=== PATIENT | male | born 1980 ===

== ENCOUNTER 2020-04-11 11:10 | Outpatient (REF) | payer OTHER, SELFPAY ==
[2020-04-11 14:27] LABS: Alanine Aminotransferase 29 U/L (0-40); Albumin Level 4.6 g/dL (3.5-5.0); Alkaline Phosphatase 82 U/L (39-117); Anion Gap 14 (12-20); Aspartate Amino Transferase 19 U/L (5-37); Bilirubin Total 0.4 mg/dL (0.0-1.0); Blood Urea Nitrogen 12 mg/dL (9-16); Calcium 8.8 mg/dL (8.4-10.2); Carbon Dioxide 25 mmol/L (22-29); Chloride 104 mmol/L (96-108); Estimated Glomerular Filt Rate > 60; Glucose Fasting 74 mg/dL (60-99); Potassium 4.2 mmol/l (3.3-5.1); Sodium 139 mmol/L (135-145); Total Protein 7.7 g/dL (6.5-8.0)
== END 2020-04-11 11:11 | disposition home or self-care (01) ==
LOC: HO.HMGCLDS 11:10
PROVIDERS: PCP Nurse Practitioner Family; Visit Provider Nurse Practitioner Family
DX: B36.0 Pityriasis versicolor (principal)
CPT/HCPCS: 80053

== ENCOUNTER 2021-08-26 13:26 | Outpatient (REF) | payer OTHER, BC, SELFPAY ==
--- NOTE | ~2021-08-26 | XR_ITS ---
EXAMINATION: XR SHOULDER, RIGHT CLINICAL INFORMATION: Sprain COMPARISON: None TECHNIQUE: 3 views of the right shoulder. FINDINGS: The bones and soft tissues are normal. No fracture. Glenohumeral and acromioclavicular alignment is anatomic with normal joint space. No abnormal soft tissue calcifications. XR/XR shoulder RT min 2V IMPRESSION: Normal right shoulder.
== END 2021-08-26 13:27 | disposition home or self-care (01) ==
LOC: HO.HMGCX 13:26
PROVIDERS: Visit Provider Internal Medicine
DX: S43.401A Unspecified sprain of right shoulder joint, initial encounter (principal); X58.XXXA Exposure to other specified factors, initial encounter; Y93.9 Activity, unspecified; Y92.9 Unspecified place or not applicable; Y99.9 Unspecified external cause status
CPT/HCPCS: 73030

== ENCOUNTER 2022-06-30 23:23 | Emergency (ER) | payer BC, SELFPAY ==
--- NOTE | ~2022-06-30 | CT_ITS ---
EXAMINATION: CT ABDOMEN AND PELVIS WITH CONTRAST CLINICAL INFORMATION: Lower abdominal pain, question diverticulitis COMPARISON: 12/04/2018 TECHNIQUE: Multidetector volumetric images were obtained from the superior aspect of the liver through the pubic symphysis following administration 85 mL of Omnipaque 350 intravenous contrast. Sagittal and coronal reformatted images were obtained on the technologist's workstation. Oral contrast: No This CT examination was performed using dose optimization techniques as appropriate, variously including the following: *Automated exposure control *Adjustment of mA and/or kV according to patient size (this includes techniques or standardized protocols for targeted exams where dose is matched to indication/reason for exam; i.e. extremities or head) *Use of iterative reconstruction technique DLP: 872 mGy-cm FINDINGS: LUNG BASES: Mild bibasilar atelectasis. LIVER, GALLBLADDER, AND BILIARY TREE: The liver is normal in size, shape, and attenuation. No focal hepatic lesion or biliary ductal dilatation is present. The gallbladder is unremarkable with no evidence of radiopaque gallstones, gallbladder wall thickening, or obvious pericholecystic inflammatory changes. PANCREAS: Unremarkable. SPLEEN: Unremarkable. ADRENAL GLANDS: Unremarkable. KIDNEYS AND URETERS: The kidneys are normal in size, shape, and attenuation. Left upper pole renal cyst measures up to approximately 5.2 cm; no follow-up recommended. No hydronephrosis, hydroureter, or calculi seen. No perinephric stranding. BLADDER: Unremarkable. GASTROINTESTINAL TRACT: The small and large bowel are unremarkable. The appendix is suspected to be collapsed. No free fluid or free air is seen. ABDOMINAL WALL: Small fat-containing umbilical hernia. LYMPH NODES: Normal. VASCULAR: Unremarkable. PELVIC VISCERA: Unremarkable. OSSEOUS STRUCTURES: Scattered degenerative changes noted in the spine. CT/CT abdomen pelvis w IV con IMPRESSION: No acute findings identified in the abdomen/pelvis.
[2022-06-30 23:26] VITALS: BP 164/74; PULSE 83; RESP 20; TEMP 36.8; O2SAT 94; BMI 34.3
[2022-07-01 00:15] LABS: Appearance Urine Clear; Basophils Absolute Auto 0.1 X10*3/uL (0.0-0.2); Basophils Percent Auto 0.8 % (0-2); Color Urine Yellow; Eosinophils Absolute Auto 0.2 X10*3/uL (0.0-0.4); Eosinophils Percent Auto 2.1 % (0-4); Glucose Urine UA Negative (Negative); Hematocrit 42.5 % (42.0-52.0); Hemoglobin 14.7 g/dl (14.0-18.0); Imm Gran Abs Auto 0.12 X10*3/uL (0.00-0.03); Imm Gran Pct Auto 1.1 % (0.0-0.4); Leukocyte Esterase Urine Negative (Negative); Lymphocytes Absolute Auto 2.5 X10*3/uL (1.2-4.9); Lymphocytes Percent Auto 22.4 % (20-40); MANUAL DIFF FLAG NO; Mean Corpuscular HGB Conc 34.6 g/dl (31.0-36.0); Mean Corpuscular Volume 89.7 fL (80.0-98.0); Mean Platelet Volume 9.8 fL (9.4-12.4); Monocytes Absolute Auto 0.9 X10*3/uL (0.1-1.2); Monocytes Percent Auto 8.1 % (2-11); Neutrophils Absolute Auto 7.3 x10*3/uL (2.0-8.3); Neutrophils Percent Auto 65.5 % (45-73); Nitrite Urine Negative (Negative); Platelet Count 259 X10*3/uL (160-400); Red Blood Count 4.74 X10*6/uL (4.60-5.80); Specific Gravity - Urine <= 1.005 (1.005-1.025); Urine Blood Negative (Negative); Urine Ketones Negative (Negative); Urine Protein Negative (Neg-Trace); White Blood Count 11.2 X10*3/uL (4.8-10.8)
[2022-07-01 00:33] LABS: Anion Gap 14 (12-20); Blood Urea Nitrogen 10 mg/dL (9-16); Calcium 9.3 mg/dL (8.4-10.2); Carbon Dioxide 26 mmol/L (22-29); Chloride 102 mmol/L (96-108); Creatinine Clr Calc Pharmacy 172.4; Estimated Glomerular Filt Rate > 60; Glucose Random 97 mg/dL (60-115); Potassium 4.1 mmol/L (3.3-5.1); Sodium 138 mmol/L (135-145)
--- NOTE | 2022-07-01 01:00 | ED.ABDPAIN ---
HPI - Abdominal Pain General Chief Complaint: Abdominal Pain Stated Complaint: Abd pain/Groin pain Time Seen by Provider: 07/01/22 00:48 Source: patient Mode of arrival: ambulatory Limitations: no limitations History of Present Illness HPI narrative: Patient with no significant past abdominal complaints been having diffuse lower abdominal pain for last 3 weeks for last few days getting worse mostly on the right side now is stable nausea no vomiting had some loose bowels with blood in that for last 2 days no fever or chills no history of diverticulitis patient is status post appendectomy Related Data Home Medications Medication Instructions Recorded Confirmed No Known Home Meds 08/26/21 08/26/21 Allergies Allergy/AdvReac Type Severity Reaction Status Date / Time steroids Allergy Unknown rage Unverified 12/25/21 12:40 out , aggitation STEROIDS Allergy Mild ENRAGED Uncoded 12/25/21 12:40 EASILY Review of Systems Review of Systems Yes all other systems are reviewed and are negative PMFSH Past Medical History Medical History History of gastroesophageal reflux (GERD) Left knee injury Seasonal allergies Surgical History History of appendectomy Family History Family History Father Smoker Mother Stroke Former smoker Maternal Grandfather No problems noted. Maternal Grandmother No problems noted. Paternal Grandfather Smoker Emphysema, unspecified Paternal Grandmother No problems noted. Brother No problems noted. Daughter No problems noted. Son No problems noted. Social History Social History Alcohol intake: never Advance Directives: No Advance Directives Information Provided: Yes Physical Exam ED Vital Signs: Vital Signs - 24 hr 06/30/22 23:26 07/01/22 04:19 Temperature 98.3 F 99.0 F Pulse Rate 83 82 Respiratory Rate 20 17 Blood Pressure 164/74 H 138/78 Pulse Oximetry 94 95 Oxygen Delivery Method Room Air Room Air BMI result Body Mass Index 34.3 Appearance: Alert. Oriented X3. No acute distress. Eyes: PERRLA, No Nystagmus ENT: Pharynx normal. Oral Mucosa moist Neck: Normal inspection. Neck supple. CVS: Normal heart rate and rhythm. Pulses normal. Respiratory: No respiratory distress. Equal air entry bilateral, no wheezing/rales/rhonchi Abdomen: Soft , deep tenderness right lower quadrant and left lower quadrant no rebound tenderness Bowel sounds are present, no mass palpable, no CVA tenderness Skin: Skin warm and dry. Normal skin color. Normal skin turgor. Extremities: No lower extremity edema. No calf tenderness Neuro: Oriented X 3. No motor deficit. Medical Decision Making Medical Decision Making [facility] Narrative: Patient has right lower lumbar and lower abdominal pain for last 3 weeks lab workup negative for any acute inflammation or infection CT scan also negative for kidney stone likely musculoskeletal pain discharge patient home on ibuprofen Lab Data [facility] Lab Attestation statement: I reviewed the patient's lab results. 07/01/22 00:07 07/01/22 00:07 Labs: Lab Results 07/01/22 07/01/22 07/01/22 Range/Units 00:07 00:07 00:07 WBC 11.2 H (4.8-10.8) X10*3/uL RBC 4.74 (4.60-5.80) X10*6/uL Hgb 14.7 (14.0-18.0) g/dl Hct 42.5 (42.0-52.0) % MCV 89.7 (80.0-98.0) fL MCH 31.0 (27.0-33.0) pg MCHC 34.6 (31.0-36.0) g/dl RDW 12.0 (11.0-16.0) % Plt Count 259 (160-400) X10*3/uL MPV 9.8 (9.4-12.4) fL Immature Gran % (Auto) 1.1 H (0.0-0.4) % Neut % (Auto) 65.5 (45-73) % Lymph % (Auto) 22.4 (20-40) % [place] % (Auto) 8.1 (2-11) % Eos % (Auto) 2.1 (0-4) % Baso % (Auto) 0.8 (0-2) % Lymph # (Auto) 2.5 (1.2-4.9) X10*3/uL [place] # (Auto) 0.9 (0.1-1.2) X10*3/uL Eos # (Auto) 0.2 (0.0-0.4) X10*3/uL Baso # (Auto) 0.1 (0.0-0.2) X10*3/uL Abs Immat Gran (auto) 0.12 H (0.00-0.03) X10*3/uL Absolute Neuts (auto) 7.3 (2.0-8.3) x10*3/uL Absolute Nucleated RBC 0.000 (0.0-0.012) X10*3/uL Nucleated RBC % (auto) 0.0 (0.0-0.2) /100WBC Sodium 138 (135-145) mmol/L Potassium 4.1 (3.3-5.1) mmol/L Chloride 102 (96-108) mmol/L Carbon Dioxide 26 (22-29) mmol/L Anion Gap 14 (12-20) BUN 10 (9-16) mg/dL Creatinine 0.81 (0.5-1.4) mg/dL Estim Creat Clear Calc 172.4 Estimated GFR > 60 Random Glucose 97 (60-115) mg/dL Calcium 9.3 (8.4-10.2) mg/dL Urine Color Yellow Urine Appearance Clear Urine pH 7.0 (5.0-9.0) Ur Specific [place] <= 1.005 (1.005-1.025) Urine Protein Negative (Neg-Trace) mg/dL Urine Glucose (UA) Negative (Negative) mg/dL Urine Ketones Negative (Negative) mg/dL Urine Blood Negative (Negative) Urine Nitrite Negative (Negative) Ur Leukocyte Esterase Negative (Negative) Medications Administered Discontinued Medications Generic Name Dose Route Start Last Admin Trade Name Freq PRN Reason Stop Dose Admin Sodium Chloride 1,000 mls @ 999 mls/hr 07/01/22 01:20 07/01/22 02:36 Ns IV 07/01/22 02:20 Infused .Q1H1M ONE Infusion Iohexol 85 ml 07/01/22 01:58 07/01/22 02:00 Iohexol 350 Mg/Ml 100 Ml Infus..Btl IV 07/01/22 01:59 85 ml ONCE ONE Administration Morphine Sulfate 4 mg 07/01/22 01:20 07/01/22 01:35 Morphine Sulfate 4 Mg/Ml Cartridge IVPUSH 07/01/22 01:21 4 mg ONCE ONE Administration Protocol Ondansetron HCl 4 mg 07/01/22 01:20 07/01/22 01:35 Ondansetron Hcl 4 Mg/2 Ml Vial IVPUSH 07/01/22 01:21 4 mg ONCE ONE Administration Discharge Plan Discharge Clinical Impression: Acute lumbar myofascial strain Patient Disposition: Home, Self-Care Instructions: Acute Low Back Pain (ED) Additional Instructions: Take ibuprofen more pain Apply Ice pack Your CT scan the abdomen is negative for any acute pathology Prescriptions: No Action No Known Home Meds Interventions: ED Discharge Assessment Last Done: 07/01/22 04:27 Discharge Date/Time: 07/01/22 04:28
--- OUTSIDE RECORDS SUMMARY | 2022-07-01 01:20 | XMS_ITS | Continuity of Care Document ---
:1980 Author Organization [facility] Care Team Providers Name Role Phone [facility] Unavailable Unavailable Problems Combined list of problems from Department of Defense and Veterans Affairs facilities. It does not include entries that were removed or entered in error. Problem Status Onset Problem Type Date of Comments Source Date Resolution Adjustment Active Condition [facility] disorder with [place] disturbance of [facility] conduct Backache (ICD-9-CM Active Condition [place] 724.5) Osteoarthritis * Active Condition [place] (ICD-9-CM 715.90) Allergies, Adverse Reactions, Alerts Combined list of allergies from Department of Defense and Veterans Affairs facilities. It does not include entries that were removed or entered in error. Substance Category Reaction Severity Reaction Status Date Comments S ource type Reported No Known Drug active 11/18/2007 [place] Allergies allergy Jack n (disorder) [place], [place] Immunizations Combined list of available immunizations from the Department of Defense and Veterans Affairs facilities. Immunization Series Date Administered Site Reaction Lot CVX Drug St atus Comments Source Given By Number Code Agricultural Adviser INFLUENZA, complet VA INJECTABLE, 2019 ed CN TRL QUADRIVALENT, WSTRN PRESERVATIVE M ASSCHU FREE SETS HCS FLU,3 YRS complet Site: S [place] (HISTORICAL) 2011 ed Left I ELD Deltoid DTAP, complet SPR[place] GF UNSPECIFIED 2011 ed IE LD FORMULATION Procedures Combined list of: 1) Procedures from Department of Veterans Affairs facilities going back up to the last 18 months, not all VA non-surgical procedures are included; 2) All procedures from the Department of Defense facilities. Procedure Procedure Type Code Date Perfomer Comments Sourc e DESTRUCTION (EG, LASER 11/29/2003 [facility] SURGERY, ELECTROSURGERY, CRYOSURGERY, CHEMOSURGERY, SURGICAL CURETTEMENT), PREMALIGNANT LESIONS (EG, ACTINIC KERATOSES); FIRST LESION DESTRUCTION (EG, LASER 11/22/2003 [facility] SURGERY, ELECTROSURGERY, CRYOSURGERY, CHEMOSURGERY, SURGICAL CURETTEMENT), PREMALIGNANT LESIONS (EG, ACTINIC KERATOSES); FIRST LESION PURE TONE AUDIOMETRY 11/20/2003 [facility] (THRESHOLD); AIR ONLY SKIN TEST; 02/23/2003 [facility] TUBERCULOSIS, INTRADERMAL INTRAVENOUS INFUSION 01/31/2003 [facility] FOR THERAPY/DIAGNOSIS, ADMINISTERED BY PHYSICIAN OR UNDER DIRECT SUPERVISION OF PHYSICIAN; UP TO ONE HOUR WEDGE EXCISION OF SKIN 10/02/2002 [facility] OF NAIL FOLD (EG, FOR INGROWN TOENAIL) CULTURE, BACTERIAL; ANY 08/28/2002 [facility] OTHER SOURCE EXCEPT URINE, BLOOD OR STOOL, AEROBIC, WITH ISOLATION AND PRESUMPTIVE IDENTIFICATION OF ISOLATES TYMPANOMETRY (IMPEDANCE 10/27/2001 [facility] TESTING) PURE TONE AUDIOMETRY 10/25/2001 [facility] (THRESHOLD); AIR ONLY PHYS/OTH QUALIFIED 05/06/2001 [facility] HEALTH PRACTICE PERFORMANCE MANAGER QUALIFIED,EDUCATION,TRA IN,LICENSURE/REGULATION (WHEN APPLICABLE) EDUC SER RENDERED TO PATS IN A GRP SETTING (EG,,OBESITY,OR DIABETIC INSTRUCT) WOUND CLEANSERS, ANY 01/17/2001 [facility] TYPE, ANY SIZE PHYS/OTH QUALIFIED 11/11/2000 [facility] HEALTH PRACTICE PERFORMANCE MANAGER QUALIFIED,EDUCATION,TRA IN,LICENSURE/REGULATION (WHEN APPLICABLE) EDUC SER RENDERED TO PATS IN A GRP SETTING (EG,,OBESITY,OR DIABETIC INSTRUCT) PURE TONE AUDIOMETRY 10/15/2000 [facility] (THRESHOLD); AIR ONLY PURE TONE AUDIOMETRY 10/14/2000 [facility] (THRESHOLD); AIR ONLY Social History Combined list of available smoking, tobacco, and other social history from Department of Defense andVeterans Affairs facilities. Social History Type Response Date Comment Source Tobacco smoking VA-TOBACCO FORMER 04/22/2020 [facility] status [facility] [place] [facility] History of tobacco VA-TOBACCO QUIT 5 TO 04/22/2020 V [facility] use < 15 YRS [place] [facility] History of tobacco LIFETIME NON-TOBACCO 03/28/2012 [place] use USER This section is an DoD empty social history section.
[2022-07-01] MEDS: 0.9 % Sodium Chloride 1,000 ML 999 ML IV (01:30)
[2022-07-01] MEDS: ondansetron HCL 4 MG/2 ML VIAL IVPUSH (01:35)
[2022-07-01] MEDS: Morphine Sulfate 4 MG/ML CARTRIDGE IVPUSH (01:35)
[2022-07-01] MEDS: iohexoL 350 MG/ML 100 ML INFUS..BTL 85 ML IV (02:00)
[2022-07-01 04:19] VITALS: BP 138/78; PULSE 82; RESP 17; TEMP 37.2; O2SAT 95
== END 2022-07-01 04:28 | disposition home or self-care (01) ==
PROVIDERS: Emergency Provider Internal Medicine; PCP Nurse Practitioner Family
DX: S39.012A Strain of muscle, fascia and tendon of lower back, initial encounter (principal); X58.XXXA Exposure to other specified factors, initial encounter; Y93.9 Activity, unspecified; Y92.9 Unspecified place or not applicable; Y99.9 Unspecified external cause status
CPT/HCPCS: 36415; 74177; 80048; 81003; 85025; 96361; 96374; 96375; 99283; 99284; J2270; J2405; Q9967

== ENCOUNTER 2022-12-15 08:41 | Outpatient (AMB) | payer OTHER, BC, SELFPAY ==
--- NOTE | 2022-12-15 08:43 | MHC.OFFWIV ---
Intake Vital Signs 12/15/22 08:46 BP 120/90 H Blood Pressure Location Rt brachial Position Sitting Pulse 75 Pulse Source Pulse Oximeter Pulse Oximetry (%) 95 Oxygen Delivery Method Room Air Intake Visit Reasons: EST/right side groin pain Intake Note: Patient here for umbilical hernia pain, he states the pain is unbearable. he was given meds last week and has run out. Patient Tobacco Use Status: Former Tobacco user Quit Date: 1 years ago Allergies steroids Allergy (Unknown, Unverified 12/15/22 09:26) rage out , aggitation STEROIDS Allergy (Mild, Uncoded 12/15/22 09:26) ENRAGED EASILY Medication List - Last Reconciled 12/15/22 by Mohsen Norman MD cyclobenzaprine 10 mg PO TID PRN 7 days ketoconazole 2% 1 appl topical BID oxycodone 5 mg PO Q8H PRN 4 days Do you need a note to return to daycare/school/sports/work: No HPI EST/right side groin pain HPI Details 41-year-old male presents to the office for a sick visit. Patient is reporting pain in the right lower back and radiating into the testicular area. The pain radiates into the testicular area at night. Symptoms have been present for the past 2 weeks. He was seen at [facility] where blood work and CT scan was done. The blood work results were unremarkable, the CT scan showed thickening in the rectal area. Patient has been on opiates and muscle relaxants with minimal relief. No difficulty urinating. He has had a change in the shape of his stool. He he has noticed they are long and elongated. [facility] Medical History History of gastroesophageal reflux (GERD) Left knee injury Seasonal allergies Surgical History History of appendectomy Family History Father Smoker Mother Stroke Former smoker Maternal Grandfather No problems noted. Maternal Grandmother No problems noted. Paternal Grandfather Smoker Emphysema, unspecified Paternal Grandmother No problems noted. Brother No problems noted. Daughter No problems noted. Son No problems noted. Social History Alcohol intake: never Patient Tobacco Use Status: Former Tobacco user Quit Date: 1 years ago e-Cigarette/Vaping Use: Never Used Second Hand Smoke Exposure: Yes service: Yes ([employer] ) Current occupational status: employed Current occupation: [employer] Current occupational exposures/hazards: No Cognitive needs: No Hearing needs: No Vision needs: No Physical Exam Vital Signs: Last Vital Signs Pulse 75 12/15/22 08:46 BP 120/90 H 12/15/22 08:46 Pulse Ox 95 12/15/22 08:46 Oxygen Delivery Method Room Air 12/15/22 08:46 Const General: cooperative and healthy appearing Nutritional Appearance: well nourished Orientation/consciousness: patient oriented x3 Limitations: no limitations HEENT Head: Yes normal to inspection Eyes General: appearance normal, both eyes and all related structures Neck Neck: Yes normal visual inspection Chest Chest palpation & inspection: normal palpation of entire chest wall Resp Effort & Inspection: normal respiratory effort Other: Rectal exam: No tenderness in the vault. Neuro General: patient oriented x3 Assessment & Plan Assessment & Plan (1) Low back pain: Code(s): M54.50 - Low back pain, unspecified Plan: Patient had a surgical appointment scheduled for his incidental umbilical hernia found on the CT scan. Very unlikely that the umbilical or the small inguinal hernia is causing current symptoms. More important is the rectal thickening on CT scan investigated further. A GI appointment has been requested. I spoke to Dr. Damon who will be seeing him. Coding Level of Care Code Est Pt Level 4 (60765) Diagnoses Low back pain M54.50
[2022-12-15 08:46] VITALS: BP 120/90; PULSE 75; O2SAT 95
== END 2022-12-15 10:30 | disposition home or self-care (01) ==
PROVIDERS: PCP Nurse Practitioner Family; Visit Provider Internal Medicine
DX: M54.50 Low back pain, unspecified (principal)
CPT/HCPCS: 99214

== ENCOUNTER 2022-12-17 12:52 | Day surgery (SDC) | payer BC, SELFPAY ==
[2022-12-17 13:59] VITALS: BP 146/86; PULSE 85; RESP 18; TEMP 36.7; O2SAT 93
[2022-12-17 14:01] VITALS: BMI 35.6
[2022-12-17] MEDS: Lactated Ringers 1,000 ML 50 ML IVCONT (14:22)
--- NOTE | 2022-12-17 14:29 | MHC.SHP ---
Pre-Procedural Eval Section A Date of Service: 12/17/22 Section B Chief Complaint: Other specified diseases of anus and rectum Details of Present Illness: patient has been having about 4 weeks of pain in right scrotum, and in lower back as well as rectal area. He had a CT scan at [facility] with thickened rectum. Has seen small amounts of blood. 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 Relevant Family History (Specify if Yes): No Relevant Social History: Other (specify) (THC use ) Present Medications: see Short Stay Collaborative assessment Medical History: Significant History (History of gastroesophageal reflux (GERD) Left knee injury Seasonal allergies) History of Previous Operations: Relevant previous surgery/procedure and date(s) (appendectomy) Allergies: Allergies Allergy/AdvReac Type Severity Reaction Status Date / Time steroids Allergy Unknown rage Unverified 12/15/22 09:26 out , aggitation Review of Systems Sugical H&P ROS: Negative: Constitution, Cardiovascular, Respiratory, Neurological, Psychiatric, Hem-Onc, Allergic/Immunologic, Gastrointestinal, Genitourinary, Musculoskeletal, Integumentary, Endocrine and Eyes/Ears/Nose/Throat Exam Surgical H&P Exam: Normal: HEENT, Normal: Heart, Normal: Lungs, Normal: Extremities, Normal: Abdomen, Normal: Skin and Normal: Neurological Exam Comment: no herniae seen, tender lower back Plan I have reviewed the history and physical and performed a pertinent physical examination on my patient. No changes have occurred unless specified. colonoscopy for further assessment Time Spent With Patient Time: Total time managing care of this patient today ____ minutes.
--- NOTE | 2022-12-17 14:59 | P.CONAN_ITS ---
[facility] Active Problems Active Problems: All Active Problems (Updated 12/15/22 @ 09:30 by Mohsen Norman MD) Low back pain (Acute) Umbilical hernia (Acute) Physical exam (Acute) Rectal bleed (Acute) Sprain of right shoulder (Acute) Tinea versicolor (Acute) Past Medical History Medical History History of gastroesophageal reflux (GERD) Left knee injury Seasonal allergies Family History Family History Father Smoker Mother Stroke Former smoker Maternal Grandfather No problems noted. Maternal Grandmother No problems noted. Paternal Grandfather Smoker Emphysema, unspecified Paternal Grandmother No problems noted. Brother No problems noted. Daughter No problems noted. Son No problems noted. Family history of problems with anesthesia: No Surgical History Surgical History History of appendectomy History of Problems with Anesthesia: No Social History Social History Alcohol intake: never Patient Tobacco Use Status: Former Tobacco user Quit Date: 13 years e-Cigarette/Vaping Use: Never Used Second Hand Smoke Exposure: Yes Use of substances other than those prescribed or required for medical reasons: Yes Substance Use Type Other:: daily - last 0912/17/22 Are you DNR?: No Advance Directives: No Advance Directives Information Provided: Yes service: Yes ([employer] ) Current occupational status: employed Current occupation: [employer] Current occupational exposures/hazards: No Cognitive needs: No Hearing needs: No Vision needs: No Meds Allergies Allergy/AdvReac Type Severity Reaction Status Date / Time steroids Allergy Unknown rage Unverified 12/15/22 09:26 out , aggitation Active Medications: Current Medications Lactated Ringer's (Lr) 1,000 mls @ 50 mls/hr IVCONT .Q20H APRIL Last Admin: 12/17/22 14:22 Dose: 50 mls/hr Exam Exam Date and Time: December 17, 2022 1459 Height,Weight and Vital Signs: Height 6 ft 3 in Weight 129.274 kg Last Vital Signs Temp 98.0 F 12/17/22 13:59 Pulse 85 12/17/22 13:59 Resp 18 12/17/22 13:59 BP 146/86 H 12/17/22 13:59 Pulse Ox 93 12/17/22 13:59 O2 Del Method Room Air 12/17/22 13:59 Airway Mallampati Class: II TM Dist: >3cm Neck ROM: Full Assessment and Plan Assessment Anesthesia Assessment: Anesthesia Plan Discussed and Chart Reviewed Final Anesthetic Review Family History of Problems with Anesthesia: No History of Problems with Anesthesia: No NPO: Yes ASA Class: II Final Preanesthetic Review: No Changes in Pt Med Stat, Meds/Allgs Chart Reviewed, Consent Obtained/Reviewed and Anes Risks/Benef Reviewed Patient Risk: Low Procedure Risk: Low Anesthetic Plan Anesthetic Plan: MAC: Disposition: Standard PACU
--- NOTE | 2022-12-17 15:41 | W.PM.OPN ---
Operative Note Operative Note Date of Service: 12/17/22 Narrative: Operative Information Procedure Description: Colonoscopy Indication: rectal thickening on CT Anesthesia: MAC COLONOSCOPY Instrument: Olympus variable stiffness ADULT scope 190L Colonoscopy Monitoring: Vital signs and clinical assessment, continuous EKG monitoring, Pulse oximetry, Carbon Dioxide monitoring and blood pressure monitoring were done throughout the procedure. Colon withdrawal time was 9 minutes. Procedure: The patient was placed in the left lateral decubitis position and pre-procedure medications were administered. After a digital rectal examination of the ano-rectum, the video colonoscope was inserted into the rectum and advanced through the colon to the cecum/TI. The colonoscope was slowly withdrawn in a retrograde panoramic fashion and the colon mucosa was carefully examined including a retroflexed view of the rectum. Findings and interventions are described below. Procedure Difficulty: easy Findings: Terminal Ileum-normal Cecum:normal Ascending Colon: normal Transverse Colon -normal Descending Colon:normal Sigmoid Colon: normal Rectum: Retroflexion with medium sized internal hemorrhoids, grade I with inflammation noted, some mild erythema in rectum, bx taken Anorectum - normal Colon preparation: [place] Bowel Preparation Scale Right colon; 3 Transverse colon: 3 Left colon; 3 (0 = Unprepared colon segment with mucosa not seen due to solid stool that cannot be cleared. 1 = Portion of mucosa of the colon segment seen, but other areas of the colon segment not well seen due to staining, residual stool and/or opaque liquid. 2 = Minor amount of residual staining, small fragments of stool and/or opaque liquid, but mucosa of colon segment seen well. 3 = Entire mucosa of colon segment seen well with no residual staining, small fragments of stool or opaque liquid) Impression and Post Procedure Diagnosis: internal hemorrhoids, inflammed Plan: High fiber diet leaflet Avoid straining at stool, epsom salts and sitz bath, anusol supps or cream Consider spinal imaging to r/o nerve impingement causing his sharp pains into groin and scrotum. Avoid heavy lifting. Above findings were reviewed with the patient and relevant handouts were provided if indicated.
[2022-12-17 15:45] VITALS: BP 115/70; PULSE 92; RESP 15; TEMP 37.6; O2SAT 95
[2022-12-17 16:00] VITALS: BP 136/82; PULSE 78; RESP 16; O2SAT 95
[2022-12-17 16:11] VITALS: BP 143/76; PULSE 79; RESP 16; TEMP 37; O2SAT 96
== END 2022-12-17 16:15 | disposition home or self-care (01) ==
PROVIDERS: PCP Nurse Practitioner Family; Visit Provider Internal Medicine Gastroenterology
PROC: 0DJD8ZZ Inspection of Lower Intestinal Tract, Via Natural or Artificial Opening Endoscopic (ICD-10-PCS; CPT 45378; principal; 2022-12-17 15:50)
DX: K62.5 Hemorrhage of anus and rectum (principal); K62.89 Other specified diseases of anus and rectum; K64.8 Other hemorrhoids; K64.0 First degree hemorrhoids; M54.50 Low back pain, unspecified; N50.82 Scrotal pain; K21.9 Gastro-esophageal reflux disease without esophagitis; J30.1 Allergic rhinitis due to pollen; Z87.891 Personal history of nicotine dependence; F12.90 Cannabis use, unspecified, uncomplicated; Z88.8 Allergy status to other drugs, medicaments and biological substances
CPT/HCPCS: 45380; 88305

== ENCOUNTER → 2022-12-17 12:52 | Outpatient (BNV) | payer BC, SELFPAY | PROVIDERS: PCP Nurse Practitioner Family; Visit Provider Internal Medicine Gastroenterology | DX: K62.4 Stenosis of anus and rectum (principal); K64.0 First degree hemorrhoids | CPT/HCPCS: 45380 ==

== ENCOUNTER 2022-12-21 10:15 | Outpatient (AMB) | payer OTHER, SELFPAY ==
[2022-12-21 10:24] VITALS: BP 136/64; PULSE 67; BMI 33.7
--- NOTE | 2022-12-21 10:24 | MHC.OFFVIS ---
Intake Vital Signs 12/21/22 10:24 Height 6 ft 3 in Weight 270 lb BMI 33.7 BP 136/64 Blood Pressure Location Rt brachial Position Sitting Pulse 67 Intake Visit Reasons: Umbilical hernia Intake Note: Patient here for Umbilical and inguinal hernia. Patient c/o Rt lower back pain. Patient noticed hernias after picking up heavy trash can at work. Recent CT scan @ [facility]. Report will be scanned in chart. 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 Symptomatic umbilical hernia 2. Symptomatic right groin hernia Patient does significant heavy lifting straining at his place of employment and has had symptoms sporadically for the last several months time particularly with the right groin pain. This happened status post heavy lifting at his place of employment. He has had extensive workup including a recent CT scan was demonstrates umbilical hernia and and question of a fat containing inguinal hernia Chart was reviewed patient evaluated The patient recent colonoscopy which was essentially within normal limits [facility] Medical History History of gastroesophageal reflux (GERD) Left knee injury Seasonal allergies Surgical History History of appendectomy Family History Father Smoker Mother Stroke Former smoker Maternal Grandfather No problems noted. Maternal Grandmother No problems noted. Paternal Grandfather Smoker Emphysema, unspecified Paternal Grandmother No problems noted. Brother No problems noted. Daughter No problems noted. Son No problems noted. Social History (Updated 12/21/22 @ 10:29 by MIRACLE Sherman) Alcohol intake: never Patient Tobacco Use Status: Former Tobacco user Quit Date: 13 years e-Cigarette/Vaping Use: Never Used Second Hand Smoke Exposure: Yes Substance Use Type: Marijuana service: Yes ([employer] ) Current occupational status: employed Current occupation: [employer] Current occupational exposures/hazards: No Cognitive needs: No Hearing needs: No Vision needs: No Physical Exam Vital Signs: Last Vital Signs Pulse 67 12/21/22 10:24 BP 136/64 12/21/22 10:24 BMI result Body Mass Index 33.7 Chest Other: Chest breath sounds bilaterally, HS 1 in 2 GI Other: Abdomen ; corpulent, soft, benign. Patient was examined both supine and standing with Valsalva. Small right inguinal hernia demonstrated. Very symptomatic on palpation. Genitalia within normal limits., Approximate 2 cm irreducible umbilical hernia. Question of a very small left inguinal hernia, asymptomatic. Assessment & Plan Assessment & Plan (1) Umbilical hernia: Code(s): K42.9 - Umbilical hernia without obstruction or gangrene (2) Inguinal hernia of right side without obstruction or gangrene: Code(s): K40.90 - Unilateral inguinal hernia, without obstruction or gangrene, not specified as recurrent Plan I discussed with the patient therapeutic options include continued observation or repair of the hernias. He wished to have repair of the symptomatic hernias, umbilical and right groin. Risks, benefits, and alternatives of hernia repair were reviewed the patient included but not limited to bleeding, infection, recurrence, numbness, pain, scarring, bowel injury or leak, seroma, and persistence of symptoms . Patient wishes to proceed. All questions were answered. Arrangements were made for this. Coding Level of Care Code New Pt Level 5 (32502) Diagnoses Umbilical hernia K42.9 Inguinal hernia of right side without obstruction or gangrene K40.90
== END 2022-12-21 10:40 | disposition home or self-care (01) ==
PROVIDERS: PCP Nurse Practitioner Family; Referring Provider Nurse Practitioner Family; Visit Provider Surgery
DX: K42.9 Umbilical hernia without obstruction or gangrene (principal); K40.90 Unilateral inguinal hernia, without obstruction or gangrene, not specified as recurrent
CPT/HCPCS: 99205

== ENCOUNTER → 2022-12-21 10:15 | Outpatient (BNVA) | payer OTHER, BC, SELFPAY | PROVIDERS: PCP Nurse Practitioner Family; Referring Provider Nurse Practitioner Family; Visit Provider Surgery | DX: K42.9 Umbilical hernia without obstruction or gangrene (principal); K40.90 Unilateral inguinal hernia, without obstruction or gangrene, not specified as recurrent; Z79.899 Other long term (current) drug therapy | CPT/HCPCS: 99202 ==

== ENCOUNTER 2023-01-04 07:27 | Outpatient (AMB) | payer OTHER, SELFPAY ==
--- NOTE | 2023-01-04 07:23 | A.OFFPC_ITS ---
Intake Visit Reasons: FMLA paper work Allergies steroids Allergy (Unknown, Unverified 12/21/22 10:27) rage out , aggitation Tobacco use date assessed: 10/07/22 HPI FMLA paper work HPI Details Pt has an upcoming surgery on 01/07 for a right inguinal and umbilical hernia repair with mesh. Pt's surgeon will be filling out paperwork for FMLA. Denies fever, chills, and dizziness. [facility] Medical History History of gastroesophageal reflux (GERD) Left knee injury Seasonal allergies Surgical History History of appendectomy Family History Father Smoker Mother Stroke Former smoker Maternal Grandfather No problems noted. Maternal Grandmother No problems noted. Paternal Grandfather Smoker Emphysema, unspecified Paternal Grandmother No problems noted. Brother No problems noted. Daughter No problems noted. Son No problems noted. Social History (Updated 12/21/22 @ 10:29 by MIRACLE Sherman) Alcohol intake: never Patient Tobacco Use Status: Former Tobacco user Quit Date: 13 years e-Cigarette/Vaping Use: Never Used Second Hand Smoke Exposure: Yes Substance Use Type: Marijuana service: Yes ([employer] ) Current occupational status: employed Current occupation: [employer] Current occupational exposures/hazards: No Cognitive needs: No Hearing needs: No Vision needs: No Questionnaire Thrive Questionnaire Date Thrive assessed: 10/07/22 SERVANDO-7 AMB Questionnaire SERVANDO-7 Date SERVANDO - 7 assessed: 10/07/22 Source: Developed by Drs. Holden Davis, Ani Tom, Monroe Delgado and colleagues, with an educational raj from [employer]. Review of Systems Const Reports as per HPI Physical exam (Primary Care) Tobacco/Smoking Status: Tobacco use Status Tobacco use date assessed 10/07/22 01/04/23 07:24 Patient Tobacco Use Status Former Tobacco user 01/04/23 07:24 e-Cigarette/Vaping Use Never Used 01/04/23 07:24 Thrive Assessment: Date of Thrive Assessment Date Thrive assessed 10/07/22 01/04/23 07:24 Const General: cooperative Orientation/consciousness: patient oriented x3 Neuro General: patient oriented x3 Psych Appearance: grossly normal Mental Status: mental status grossly normal Speech and movement: Clear speech present Affect: normal affect Attitude: cooperative Thought process: Normal thought process present Thought content: Normal thought content present Insight: Good insight present (Psych) Judgement: Good judgement present (Psych) Telehealth Telehealth Location of provider rendering services: practice address Location of patient: address on file Patient Identification confirmed using: Name, : Yes Telehealth method: video Patient verbally consented to treatment: Yes Patient verbally consented to billing insurance company: Yes Patient informed of any privacy concerns related to visit: Yes Minutes spent on Phone/Video with Pt.: 10 Assessment and Plan Assessment & Plan (1) Umbilical hernia: Code(s): K42.9 - Umbilical hernia without obstruction or gangrene (2) Inguinal hernia of right side without obstruction or gangrene: Code(s): K40.90 - Unilateral inguinal hernia, without obstruction or gangrene, not specified as recurrent Plan The patient agreed to the use of a medical facilities section director for this encounter. Scribed for KANDY Paredes-DEJUAN by Jia Olivier medical facilities section director, on 01/04/2023 at 07:25 EST. Coding Level of Care Code Tele Est Pt Level 3 (12930) Diagnoses Umbilical hernia K42.9 Inguinal hernia of right side without obstruction or gangrene K40.90
== END 2023-01-04 14:53 | disposition home or self-care (01) ==
PROVIDERS: PCP Nurse Practitioner Family; Visit Provider Nurse Practitioner Family
DX: K42.9 Umbilical hernia without obstruction or gangrene (principal); K40.90 Unilateral inguinal hernia, without obstruction or gangrene, not specified as recurrent
CPT/HCPCS: 99213

== ENCOUNTER 2023-01-07 10:43 | Day surgery (SDC) | payer OTHER, SELFPAY ==
[2023-01-04 15:31] VITALS: BMI 34.4
--- NOTE | 2023-01-06 09:05 | MHC.SHP ---
Pre-Procedural Eval Section A Date of Service: 01/06/23 The patient is an INPATIENT: No Changes since office visit: No Cold of Flu in the past 2 weeks, No New Medical Problems, No Changes in Medication and No Patient answered all questions The History & Physical has been completed within 30 days and I have reviewed it.: Yes Section B Chief Complaint: Umbilica hernia without obstruction or gangrene Allergies: Allergies Allergy/AdvReac Type Severity Reaction Status Date / Time steroids AdvReac Intermediate Irritable Verified 01/04/23 15:35 Plan I have reviewed the history and physical and performed a pertinent physical examination on my patient. No changes have occurred unless specified. Time Spent With Patient Time: Total time managing care of this patient today ____ minutes.
[2023-01-07 12:01] VITALS: BP 105/48; PULSE 76; RESP 18; TEMP 36.4; O2SAT 97
[2023-01-07] MEDS: Lactated Ringers 1,000 ML 50 ML IVCONT (12:27)
--- NOTE | 2023-01-07 13:00 | P.CONAN_ITS ---
HPI - Anesthesia Eval Consult details Narrative: 42 yo male for umbilial and inguinal hernia repair [facility] Active Problems Active Problems: All Active Problems (Updated 01/04/23 @ 15:34 by Nydia Posey RN) Tinea versicolor (Acute) Sprain of right shoulder (Acute) Rectal bleed (Acute) Physical exam (Acute) Umbilical hernia (Acute) Low back pain (Acute) Inguinal hernia of right side without obstruction or gangrene (Acute) Past Medical History Medical History History of gastroesophageal reflux (GERD) Left knee injury Seasonal allergies Family History Family History Father Smoker Mother Stroke Former smoker Maternal Grandfather No problems noted. Maternal Grandmother No problems noted. Paternal Grandfather Smoker Emphysema, unspecified Paternal Grandmother No problems noted. Brother No problems noted. Daughter No problems noted. Son No problems noted. Family history of problems with anesthesia: No Surgical History Surgical History (Updated 01/04/23 @ 15:34 by Nydia Posey RN) History of appendectomy History of esophagogastroduodenoscopy (EGD) Hx of colonoscopy History of Problems with Anesthesia: No Social History Social History (Updated 01/04/23 @ 14:34 by Nydia Posey RN) Are you a primary health care specialist to a significant other at home: No Do you presently have visiting nurse or other home services: No Alcohol intake: never Patient Tobacco Use Status: Former Tobacco user Quit Date: 2009 Tobacco use type: Cigarette e-Cigarette/Vaping Use: Never Used Second Hand Smoke Exposure: Yes Use of substances other than those prescribed or required for medical reasons: Yes Substance Use Type: Marijuana Substance Use Frequency: Daily Have you been hit, kicked, punched, or otherwise hurt by someone within the past year? If so, by whom?: No Are you DNR?: No Advance Directives: No Advance Directives Information Provided: Yes Advance Directives on File: No Recently lost weight without trying: No Nutrition Risks: No Nutritional Risk Poor oral hygiene: No service: Yes ([employer]) Current occupational status: employed Current occupation: [employer] Current occupational exposures/hazards: No Cognitive needs: No Hearing needs: No Vision needs: No Meds Allergies Allergy/AdvReac Type Severity Reaction Status Date / Time steroids AdvReac Intermediate Irritable Verified 01/04/23 15:35 Active Medications: Current Medications Lactated Ringer's (Lr) 1,000 mls @ 50 mls/hr IVCONT .Q20H APRIL Last Admin: 01/07/23 12:27 Dose: 50 mls/hr Exam Exam Date and Time: January 07, 2023 1300 Height,Weight and Vital Signs: Height 6 ft 3 in Weight 124.738 kg Last Vital Signs Temp 97.6 F 01/07/23 12:01 Pulse 76 01/07/23 12:01 Resp 18 01/07/23 12:01 BP 105/48 L 01/07/23 12:01 Pulse Ox 97 01/07/23 12:01 O2 Del Method Room Air 01/07/23 12:01 Airway Mallampati Class: II TM Dist: >3cm Neck ROM: Full Loose/Missing/Broken Teeth: No Heart: rr Lungs: cta Assessment and Plan Assessment Anesthesia Assessment: Anesthesia Plan Discussed and Chart Reviewed Final Anesthetic Review Family History of Problems with Anesthesia: No History of Problems with Anesthesia: No NPO: Yes ASA Class: II Final Preanesthetic Review: No Changes in Pt Med Stat, Meds/Allgs Chart Reviewed, Consent Obtained/Reviewed and Anes Risks/Benef Reviewed Patient Risk: Low Procedure Risk: Low Anesthetic Plan Anesthetic Plan: GA Disposition: Standard PACU
--- NOTE | 2023-01-07 14:14 | P.OP_ITS ---
Operative Note Operative Note Date of Service: 01/07/23 Narrative: Preoperative diagnosis: [] 1. Right inguinal hernia 2. Incarcerated umbilical hernia Postop diagnosis: [] Same Procedure [] 1. Open repair right inguinal hernia with Bard mesh 2. Repair incarcerated umbilical hernia with Bard mesh Surgeon: [] Max Technical Translator: [] ana Wilkinson Type of Anesthesia: [] General Indication for surgery: [] 1. Large direct right inguinal hernia. No indirect hernia demonstrated. Two. Incarcerated umbilical hernia with omental contents. Defect approximately 2 cm. Findings: [] Patient brought to the operating room, placed on operative table in supine position, after an adequate level of general anesthesia was induced, the right groin and abdomen were prepped and draped in usual sterile fashion. Commencing with inguinal hernia, a small right para- inguinal incision was made and carried down through skin, subcutaneous tissue, and Radha's fascia. External oblique fibers were opened in their direction with care to isolate and preserve the ilioinguinal nerve throughout the procedure. Spermatic cord was identified and retracted from the field. Exploration of the cord demonstrated no indirect hernia. A large direct hernia was identified and reduced. A Bard plug was placed in this defect, and it was sutured inferiorly to the inguinal ligament, and superiorly to the transversalis fascia using interrupted 0 Ethibond suture. At completion of the procedure, mesh covered the entire inguinal floor and was in good position with no tension. Internal ring admitted 1 finger tip at completion. Wound was irrigated, secured hemostasis, and closed in the following manner; external oblique fascia was closed using running 2-0 Vicryl suture. Radha's fascia was reapproximated using up to 3-0 Vicryl sutures. Interrupted inverted deep dermal 3-0 Vicryl sutures followed by running subcuticular 4-0 Vicryl sutures were placed. Steri-Strips and sterile dressings were applied. Next the umbilical hernia was approached using an infraumbilical curvilinear incision and carried down through skin, subcutaneous tissue, where hernia sac was identified and dissected off the posterior aspect of the umbilicus. Sac was dissected down the fascia and opened. Incarcerated omental contents were amputated by placing a clamp at the base, amputated using Bovie, and tying off the returning part of omentum. Hernia sac was also amputated using Bovie. Fascia margin was circumferentially cleared and a Bard mesh placed in this defect. Superficial layer of the mesh was circumferentially sutured to the surrounding fascia using interrupted 0 Ethibond suture. At completion of procedure, mesh was in good position with no tension or gaps. Wound was irrigated, secured hemostasis, closed in the following manner; posterior aspect of the umbilicus was tacked to the wound floor using up to 3-0 Vicryl sutures. Skin was closed using interrupted inverted dermal 3-0 Vicryl sutures followed by Steri-Strips and sterile dressings. Preemptive analgesia with 0.5% Marcaine/1% lidocaine was performed at each incision site and also at the completion of the procedure. Sponge, needle, and instrument counts were reported to be correct. Patient tolerated the procedure well and emerged anesthesia stable condition. Ipsilateral testicle was intra scrotal at completion of the procedure. EBL minimal
[2023-01-07 14:25] VITALS: BP 145/89; PULSE 72; RESP 16; TEMP 36.1; O2SAT 96
[2023-01-07 14:30] VITALS: BP 151/82; PULSE 64; RESP 20; O2SAT 95
[2023-01-07] MEDS: oxyCODONE HCl Immed Release 5 MG TABLET 10 MG PO (14:33)
[2023-01-07 14:35] VITALS: BP 146/79; PULSE 71; RESP 20; O2SAT 96
[2023-01-07 14:40] VITALS: BP 141/79; PULSE 66; RESP 20; O2SAT 96
[2023-01-07 14:55] VITALS: BP 126/81; PULSE 70; RESP 20; TEMP 36.4; O2SAT 99
== END 2023-01-07 15:07 | disposition home or self-care (01) ==
PROVIDERS: PCP Nurse Practitioner Family; Visit Provider Surgery
PROC: (CPT 49505; principal; 2023-01-07 13:10)
PROC: (CPT 49505; 2023-01-07 13:10)
DX: K40.90 Unilateral inguinal hernia, without obstruction or gangrene, not specified as recurrent (principal); K42.0 Umbilical hernia with obstruction, without gangrene; J30.2 Other seasonal allergic rhinitis; Z87.891 Personal history of nicotine dependence; Z88.8 Allergy status to other drugs, medicaments and biological substances
CPT/HCPCS: 49505; 49592; 88304; C1781; J1885; J2405; J2795; J3010

== ENCOUNTER → 2023-01-07 10:43 | Outpatient (BNV) | payer OTHER, SELFPAY | PROVIDERS: PCP Nurse Practitioner Family; Visit Provider Surgery | DX: K40.90 Unilateral inguinal hernia, without obstruction or gangrene, not specified as recurrent (principal); K42.0 Umbilical hernia with obstruction, without gangrene; X50.0XXA Overexertion from strenuous movement or load, initial encounter; Y99.0 Civilian activity done for income or pay | CPT/HCPCS: 49505; 49591 ==

== ENCOUNTER 2023-01-18 08:57 | Outpatient (AMB) | payer OTHER, SELFPAY ==
[2023-01-18 09:04] VITALS: BP 127/64; PULSE 67
--- NOTE | 2023-01-18 09:04 | A.OFFVIS_ITS ---
Intake Vital Signs 01/18/23 09:04 Weight 270 lb BP 127/64 Blood Pressure Location Rt brachial Position Sitting Pulse 67 Intake Visit Reasons: S/P umbilical & RIH repair Intake Note: Patient here s/p umbilical and RIH repair. Reports incisions healing well. Denies bleeding, itch. C/o back pain. Finished rx pain meds last night. Post Closer Required: No Accompanied by: Self / Same As Patient Allergies steroids Adverse Reaction (Intermediate, Verified 01/18/23 09:06) Irritable HPI HPI Comments History of Present Illness Details Patient presents for follow-up status post umbilical and right inguinal hernia repairs. He is doing well aside from mild incisional discomfort ; he is tolerating a diet , having normal bowel habits and increasing his activity level. Incidental complaint is of right flank discomfort which patient has had in the past. My suggestion is a follow-up with a urologist regarding this. [facility] Medical History History of gastroesophageal reflux (GERD) Left knee injury Seasonal allergies Surgical History History of appendectomy History of esophagogastroduodenoscopy (EGD) Hx of colonoscopy Family History Father Smoker Mother Stroke Former smoker Maternal Grandfather No problems noted. Maternal Grandmother No problems noted. Paternal Grandfather Smoker Emphysema, unspecified Paternal Grandmother No problems noted. Brother No problems noted. Daughter No problems noted. Son No problems noted. Social History Are you a primary primary health care nurse to a significant other at home: No Do you presently have visiting nurse or other home services: No Alcohol intake: never Patient Tobacco Use Status: Former Tobacco user Quit Date: 2009 Tobacco use type: Cigarette e-Cigarette/Vaping Use: Never Used Second Hand Smoke Exposure: Yes Substance Use Type: Marijuana service: Yes ([employer]) Current occupational status: employed Current occupation: [employer] Current occupational exposures/hazards: No Cognitive needs: No Hearing needs: No Vision needs: No Physical Exam Vital Signs: Last Vital Signs Pulse 67 01/18/23 09:04 BP 127/64 01/18/23 09:04 GI Other: Abdomen soft. Both wounds clean dry and intact healing uneventfully. Assessment & Plan Assessment & Plan (1) Umbilical hernia: Code(s): K42.9 - Umbilical hernia without obstruction or gangrene (2) Inguinal hernia of right side without obstruction or gangrene: Code(s): K40.90 - Unilateral inguinal hernia, without obstruction or gangrene, not specified as recurrent Plan Patient has been given local instructions, a note for workcommencing in 3 weeks with 2 weeks light duty , otherwise follow-up p.r.n. Coding Level of Care Code Global (17723) Diagnoses Umbilical hernia K42.9 Inguinal hernia of right side without obstruction or gangrene K40.90
== END 2023-01-18 09:22 | disposition home or self-care (01) ==
PROVIDERS: PCP Nurse Practitioner Family; Visit Provider Surgery
DX: K42.9 Umbilical hernia without obstruction or gangrene (principal); K40.90 Unilateral inguinal hernia, without obstruction or gangrene, not specified as recurrent
CPT/HCPCS: 99024

== ENCOUNTER → 2023-01-18 08:57 | Outpatient (BNVA) | payer OTHER, BC, SELFPAY | PROVIDERS: PCP Nurse Practitioner Family; Visit Provider Surgery ==

== ENCOUNTER 2023-03-08 09:10 | Outpatient (AMB) | payer OTHER, SELFPAY ==
--- NOTE | 2023-03-08 09:11 | A.OFFVIS_ITS ---
Intake Vital Signs 03/08/23 09:17 Weight 278 lb BP 129/73 Blood Pressure Location Rt brachial Position Sitting Pulse 85 Intake Visit Reasons: testicular pain, Hx umbilical &RIH hernia repair Intake Note: S/p umbilical and rih hernia repair in January. Patient c/o swelling on rt groin. Reports numbing sensation on rt testicle X1wk. Noticed after pulling on heavy cart at work. Also notices pulling sensation after standing from sitting position on bathtub. 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 He developed right groin pain following this that has persisted for the week. He did not know subcuticular bulge. He has no other GI issues or complaints. He is tolerating a diet. He is having normal bowel habits. He is ambulating without difficulty. [facility] Medical History Seasonal allergies Left knee injury History of gastroesophageal reflux (GERD) Surgical History Hx of colonoscopy History of esophagogastroduodenoscopy (EGD) History of appendectomy Family History Father Smoker Mother Stroke Former smoker Maternal Grandfather No problems noted. Maternal Grandmother No problems noted. Paternal Grandfather Smoker Emphysema, unspecified Paternal Grandmother No problems noted. Brother No problems noted. Daughter No problems noted. Son No problems noted. Social History Are you a primary caregivers non medical to a significant other at home: No Do you presently have visiting nurse or other home services: No Alcohol intake: never Patient Tobacco Use Status: Former Tobacco user Quit Date: 2009 Tobacco use type: Cigarette e-Cigarette/Vaping Use: Never Used Second Hand Smoke Exposure: Yes Substance Use Type: Marijuana service: Yes ([employer]) Current occupational status: employed Current occupation: [employer] Current occupational exposures/hazards: No Cognitive needs: No Hearing needs: No Vision needs: No Physical Exam Vital Signs: Last Vital Signs Pulse 85 03/08/23 09:17 BP 129/73 03/08/23 09:17 GI Other: Patient is examined supine. Left groin negative. Right groin incision clean dry and intact. No evidence of any infection. Deep scarring from surgery but no obvious hernia demonstrated. Abdomen soft. No evidence of recurrence umbilical hernia . Assessment & Plan Assessment & Plan (1) Strain of right groin: Code(s): S76.211A - Strain of adductor muscle, fascia and tendon of right thigh, initial encounter Plan Patient's place of employment does not have light duty. We will given 2 weeks off, local wound instructions including ice or heat to the area, Motrin, and he will follow-up p.r.n. if pain worsens or persists, he should contact us for immediate follow-up. Coding Level of Care Code Est Pt Level 3 (93797) Diagnoses Strain of right groin S76.211A
[2023-03-08 09:17] VITALS: BP 129/73; PULSE 85
== END 2023-03-08 09:28 | disposition home or self-care (01) ==
PROVIDERS: PCP Nurse Practitioner Family; Visit Provider Surgery
DX: S76.211A Strain of adductor muscle, fascia and tendon of right thigh, initial encounter (principal)
CPT/HCPCS: 99024

== ENCOUNTER → 2023-03-08 09:10 | Outpatient (BNVA) | payer OTHER, SELFPAY | PROVIDERS: PCP Nurse Practitioner Family; Visit Provider Surgery | DX: S76.211A Strain of adductor muscle, fascia and tendon of right thigh, initial encounter (principal) | CPT/HCPCS: 99212 ==

== ENCOUNTER 2023-03-09 14:31 | Outpatient (AMB) | payer OTHER, BC, SELFPAY ==
--- NOTE | 2023-03-09 15:02 | A.OFFVIS_ITS ---
Intake Intake Visit Reasons: Cyst of kidney Intake Note: New Patient presents for initial visit for kidney cyst Urology Medications: none Blood Thinner: none Fisheries Director Required: No Accompanied by: Self / Same As Patient Allergies steroids Adverse Reaction (Intermediate, Verified 03/09/23 23:03) Irritable Medication List - Last Reconciled 03/09/23 by PRAKASH Baker No Known Home Meds HPI HPI Comments History of Present Illness Details Johnnie is a very pleasant 42-year-old male patient of Dr. Davison. He presents to the office today as a new patient for renal cyst. In discussion with the patient today he reports noting ongoing issues over the last 3-4 months with back pain and lower abdominal pain at which time a CT was ordered for further assessment evaluation. 5.7 cm left upper pole renal cyst with no solid masses, stones, or hydronephrosis noted within the kidneys and ureters was noted on CT of the abdomen and pelvis at which time he was referred here for further assessment and evaluation. Patient discusses having had recent umbilical and inguinal hernia repair on the right side with general surgeon here at [facility] [place], [place]. He states most if not all of his pain had since subsided status post surgical procedure up until approximately a week ago when he return to work and started experiencing right-sided groin pain that started after he missed a step. She reports having followed up with General surgery yesterday regarding this issue. He reports right-sided back pain he had been experiencing has since resolved. Discussed at length potential causes for renal cyst. Discussed surveillance monitoring. Patient otherwise denies any bothersome urinary issues or concerns at this time. He denies urinary urgency, urinary frequency, incontinence, nocturia, hematuria, dysuria, foul smelling urine, changes to urinary stream, flank pain, fever, and or chills. He is happy with his current voiding parameters. In office urinalysis results reviewed with the patient today. [facility] Medical History Seasonal allergies Left knee injury History of gastroesophageal reflux (GERD) Surgical History (Updated 03/09/23 @ 23:09 by PRAKASH Baker) H/O inguinal hernia repair H/O umbilical hernia repair Hx of colonoscopy History of esophagogastroduodenoscopy (EGD) History of appendectomy Family History Father Smoker Mother Stroke Former smoker Maternal Grandfather No problems noted. Maternal Grandmother No problems noted. Paternal Grandfather Smoker Emphysema, unspecified Paternal Grandmother No problems noted. Brother No problems noted. Daughter No problems noted. Son No problems noted. Social History Are you a primary medical care evaluation specialist to a significant other at home: No Do you presently have visiting nurse or other home services: No Alcohol intake: never Patient Tobacco Use Status: Former Tobacco user Quit Date: 2009 Tobacco use type: Cigarette e-Cigarette/Vaping Use: Never Used Second Hand Smoke Exposure: Yes Substance Use Type: Marijuana service: Yes ([employer]) Current occupational status: employed Current occupation: [employer] Current occupational exposures/hazards: No Cognitive needs: No Hearing needs: No Vision needs: No Review of Systems Const All systems reviewed & are unremarkable except as noted in HPI and below Physical Exam Const General: cooperative, healthy appearing, comfortable, no acute distress, well developed, alert and awake Orientation/consciousness: patient oriented x3 Limitations: no limitations HEENT Head: Yes normal to inspection, Yes normocephalic and Yes atraumatic Ears: hearing grossly normal bilaterally Eyes General: appearance normal, both eyes and all related structures Neck Neck: Yes normal visual inspection and Yes trachea midline Chest Chest palpation & inspection: normal inspection of the chest Resp Effort & Inspection: normal respiratory effort and able to speak in complete sentences Cardio Rate: regular rate GI Inspection: Yes normal to inspection General: Yes no CVA tenderness Back/Spine/Pelvis Back: no CVA tenderness Skin General skin exam: no rashes or lesions noted Neuro General: patient oriented x3 Extrem General: Yes normal to inspection Psych Appearance: grossly normal and well kempt Mental Status: mental status grossly normal Speech and movement: Normal speech and movement present and Clear speech present Affect: normal affect Attitude: cooperative Thought process: Normal thought process present Thought content: Normal thought content present Insight: Fair insight present (Psych) Judgement: Fair judgement present (Psych) Results AMB Urinalysis, Automated UA Leukoctes 0 Raulito/uL Last Edit by Kurtis Sheets on 03/09/23 15:25 UA Nitrite Negative Last Edit by Kurtis Sheets on 03/09/23 15:25 UA Urobilinogen 0.2 mg/dL Last Edit by Kurtis Sheets on 03/09/23 15:25 UA Protein 15 mg/dL Last Edit by Kurtis Sheets on 03/09/23 15:25 UA pH 6.0 Last Edit by Kurtis Sheets on 03/09/23 15:25 UA Blood 0 Dario/uL Last Edit by Kurtis Sheets on 03/09/23 15:25 UA Specific [place] 1.020 Last Edit by Kurtis Sheets on 03/09/23 15:25 UA Ketone Negative Last Edit by Kurtis Sheets on 03/09/23 15:25 UA Bilirubin 0 mg/dL Last Edit by Kurtis Sheets on 03/09/23 15:25 UA Glucose 0 mg/dL Last Edit by Kurtis Sheets on 03/09/23 15:25 Results Reviewed Results Reviewed: Laboratory Last Values Urine pH (Auto) 6.0 03/09/23 15:03 Specific [place] (Auto) 1.020 03/09/23 15:03 Urine Protein (Auto) 15 mg/dL 03/09/23 15:03 Glucose (UA)(Auto) 0 mg/dL 03/09/23 15:03 Urine Ketones (Auto) Negative 03/09/23 15:03 Urine Blood (Auto) 0 Dario/uL 03/09/23 15:03 Urine Nitrite (Auto) Negative 03/09/23 15:03 Urine Bilirubin (Auto) 0 mg/dL 03/09/23 15:03 Urine Urobilinogen (Auto) 0.2 mg/dL 03/09/23 15:03 Leukocyte Esterase (Auto) 0 Raulito/uL 03/09/23 15:03 Assessment & Plan Assessment & Plan (1) Kidney cyst, acquired: Code(s): N28.1 - Cyst of kidney, acquired Plan In office urinalysis results reviewed with the patient today. CT imaging results reviewed with the patient today; as noted above. Discussed at length potential causes for renal cysts. Patient denies any bothersome urinary issues or concerns at this time. Will obtain renal ultrasound in 6 months. Follow-up in 6 months with imaging to be completed prior; or sooner with any issues, concerns, and or questions. Orders: Orders AMB Urinalysis Automated Today Z13.9 - Encounter for screening, unspecified US renal BI 6 Months N28.1 - Cyst of kidney, acquired Coding Level of Care Code New Pt Level 3 (63509) Diagnoses Kidney cyst, acquired N28.1
== END 2023-03-09 15:57 | disposition home or self-care (01) ==
PROVIDERS: PCP Nurse Practitioner Family; Visit Provider Nurse Practitioner Family
DX: N28.1 Cyst of kidney, acquired (principal)
CPT/HCPCS: 99203

== ENCOUNTER → 2023-03-09 14:31 | Outpatient (BNVA) | payer OTHER, BC, SELFPAY | PROVIDERS: PCP Nurse Practitioner Family; Visit Provider Nurse Practitioner Family | DX: N28.1 Cyst of kidney, acquired (principal) | CPT/HCPCS: 81003 ==

== ENCOUNTER 2023-08-30 12:48 | Outpatient (REF) | payer BC, SELFPAY ==
--- NOTE | ~2023-08-30 | US_ITS ---
EXAMINATION: US RETROPERITONEAL LIMITED (RENAL ONLY) CLINICAL INFORMATION: Cyst of kidney, acquired. COMPARISON: CT abdomen and pelvis 07/01/2022. Ultrasound abdomen complete 12/04/2018 and 11/02/2017. TECHNIQUE: Real-time imaging of the kidneys. Limited visualization due to bowel gas. FINDINGS: RIGHT KIDNEY: 12.5 x 7.2 x 7.0 cm (SAG x AP x TRV). No hydronephrosis. No renal calculi. Renal cortical thickness is normal. Limited visualization. . LEFT KIDNEY: 13.1 x 5.9 x 6.2 cm (SAG x AP x TRV). No hydronephrosis. No renal calculi. Renal cortical thickness is normal. Limited visualization. Left upper pole 5.5 cm septated cyst was characterized on CT scan of 07/01/2022 and also present on prior ultrasounds. There is no indication for additional imaging at this time. US/US renal BI IMPRESSION: No hydronephrosis. No renal calculi. Limited visualization..
== END 2023-08-30 12:49 | disposition home or self-care (01) ==
LOC: HO.HMGCX 12:48
PROVIDERS: PCP Nurse Practitioner Family; Visit Provider Nurse Practitioner Family
DX: N28.1 Cyst of kidney, acquired (principal)
CPT/HCPCS: 76775

== ENCOUNTER 2023-09-09 15:07 | Outpatient (AMB) | payer BC, SELFPAY ==
--- NOTE | 2023-09-09 15:10 | MHC.OFFVIS ---
Intake Intake Visit Reasons: 6m/US(set) Intake Note: Patient presents today for a follow up on: US Meds- None Allergies to Antibiotic- No Known Allergies Blood Thinner- None Council [employer] Aging Director Required: No Accompanied by: Self / Same As Patient Allergies steroids Adverse Reaction (Intermediate, Verified 09/09/23 15:41) Irritable Medication List - Last Reconciled 09/09/23 by PRAKASH Baker No Known Home Meds HPI HPI Comments History of Present Illness Details Johnnie is a very pleasant 42-year-old male patient of Dr. Davison. He presents to the office today for follow-up of his renal cysts. In discussion with the patient today reports to be doing and feeling well. 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 Recent renal imaging results reviewed with the patient today. Bilateral kidneys with no hydronephrosis and or calculi. Left upper pole 5.5 cm septated cyst which requires no indication for additional imaging at this time per radiology report. He discusses having had right inguinal hernia repair last fall and continues to have issues with abdominal discomfort and right-sided groin pain that radiates to his scrotum/testicles. He discusses feeling symptoms are worse when at work as he does a lot of heavy lifting. He describes the pain as a dull pain however at times if picking up something heavy it does feel sharp. He otherwise denies any bothersome urinary issues or concerns. He denies urinary urgency, urinary frequency, incontinence, nocturia, hematuria, dysuria, foul smelling urine, changes to urinary stream, flank pain, fever, and or chills. He is happy with his current voiding parameters. In office urinalysis results reviewed with the patient today. He otherwise denies any other issues or concerns at this time. [facility] Medical History Seasonal allergies Left knee injury History of gastroesophageal reflux (GERD) Surgical History H/O inguinal hernia repair H/O umbilical hernia repair Hx of colonoscopy History of esophagogastroduodenoscopy (EGD) History of appendectomy Family History Father Smoker Mother Stroke Former smoker Maternal Grandfather No problems noted. Maternal Grandmother No problems noted. Paternal Grandfather Smoker Emphysema, unspecified Paternal Grandmother No problems noted. Brother No problems noted. Daughter No problems noted. Son No problems noted. Social History Are you a primary managed care manager to a significant other at home: No Do you presently have visiting nurse or other home services: No Alcohol intake: never Patient Tobacco Use Status: Former Tobacco user Quit Date: 2009 Tobacco use type: Cigarette e-Cigarette/Vaping Use: Never Used Second Hand Smoke Exposure: Yes Substance Use Type: Marijuana service: Yes (Known) Current occupational status: employed Current occupation: [employer] Current occupational exposures/hazards: No Cognitive needs: No Hearing needs: No Vision needs: No Review of Systems Const All systems reviewed & are unremarkable except as noted in HPI and below Physical Exam Const General: cooperative, healthy appearing, comfortable, no acute distress, well developed, alert and awake Orientation/consciousness: patient oriented x3 Limitations: no limitations HEENT Head: Yes normal to inspection, Yes normocephalic and Yes atraumatic Ears: hearing grossly normal bilaterally Eyes General: appearance normal, both eyes and all related structures Neck Neck: Yes normal visual inspection and Yes trachea midline Chest Chest palpation & inspection: normal inspection of the chest Resp Effort & Inspection: normal respiratory effort and able to speak in complete sentences Cardio Rate: regular rate GI Inspection: Yes normal to inspection General: Yes no CVA tenderness Back/Spine/Pelvis Back: no CVA tenderness Skin General skin exam: no rashes or lesions noted Neuro General: patient oriented x3 Extrem General: Yes normal to inspection Psych Appearance: grossly normal and well kempt Mental Status: mental status grossly normal Speech and movement: Normal speech and movement present and Clear speech present Affect: normal affect Attitude: cooperative Thought process: Normal thought process present Thought content: Normal thought content present Insight: Fair insight present (Psych) Judgement: Fair judgement present (Psych) Results AMB Urinalysis, Automated UA Leukoctes 0 Raulito/uL Last Edit by Kimmy Paez CMA on 09/09/23 15:21 UA Nitrite Negative Last Edit by Kimmy Paez CMA on 09/09/23 15:21 UA Urobilinogen 0.2 mg/dL Last Edit by [facility], [facility] on 09/09/23 15:21 UA Protein 0 mg/dL Last Edit by [facility], [facility] on 09/09/23 15:21 UA pH 6.5 Last Edit by [facility], [facility] on 09/09/23 15:21 UA Blood 0 Dario/uL Last Edit by [facility], [facility] on 09/09/23 15:21 UA Specific [place] 1.015 Last Edit by [facility], [facility] on 09/09/23 15:21 UA Ketone Negative Last Edit by [facility], [facility] on 09/09/23 15:21 UA Bilirubin 0 mg/dL Last Edit by [facility], [facility] on 09/09/23 15:21 UA Glucose 0 mg/dL Last Edit by [facility], [facility] on 09/09/23 15:21 Results Reviewed Results Reviewed: Laboratory Last Values Urine pH (Auto) 6.5 09/09/23 15:11 Specific [place] (Auto) 1.015 09/09/23 15:11 Urine Protein (Auto) 0 mg/dL 09/09/23 15:11 Glucose (UA)(Auto) 0 mg/dL 09/09/23 15:11 Urine Ketones (Auto) Negative 09/09/23 15:11 Urine Blood (Auto) 0 Dario/uL 09/09/23 15:11 Urine Nitrite (Auto) Negative 09/09/23 15:11 Urine Bilirubin (Auto) 0 mg/dL 09/09/23 15:11 Urine Urobilinogen (Auto) 0.2 mg/dL 09/09/23 15:11 Leukocyte Esterase (Auto) 0 Raulito/uL 09/09/23 15:11 Date of Service: 08/30/23 EXAMINATION: US RETROPERITONEAL LIMITED (RENAL ONLY) FINDINGS: RIGHT KIDNEY: 12.5 x 7.2 x 7.0 cm (SAG x AP x TRV). No hydronephrosis. No renal calculi. Renal cortical thickness is normal. Limited visualization. . LEFT KIDNEY: 13.1 x 5.9 x 6.2 cm (SAG x AP x TRV). No hydronephrosis. No renal calculi. Renal cortical thickness is normal. Limited visualization. Left upper pole 5.5 cm septated cyst was characterized on CT scan of 07/01/2022 and also present on prior ultrasounds. There is no indication for additional imaging at this time. IMPRESSION: No hydronephrosis. No renal calculi. Limited visualization. Assessment & Plan Assessment & Plan (1) Kidney cyst, acquired: Code(s): N28.1 - Cyst of kidney, acquired (2) Groin pain: Code(s): R10.30 - Lower abdominal pain, unspecified Plan: In office urinalysis results reviewed with the patient today; as noted above. Recent renal ultrasound results reviewed with the patient today; as noted above. Will continue with surveillance monitoring of renal cyst. Will obtain scrotal ultrasound for further assessment evaluation. Reassurance provided Discussed importance of stretching and [id number] Tylenol/Motrin/Ice/heat for discomfort he is experiencing Patient otherwise denies any bothersome urinary issues or concerns. He reports be happy with current voiding parameters. Follow-up in 3 months with imaging to be completed prior; or sooner with any issues, concerns, and or questions. Plan The patient had an opportunity to ask questions regarding the treatment plan. All questions were answered. Physical exam, labs, and imaging were discussed and reviewed in detail. As well as risks, benefits, and discussion of treatment choices. No major barriers to understanding were identified. The patient expressed understanding and agreement with the above treatment plan. The patient was made aware they should contact our office by phone for worsening of their current condition, the appearance of new symptoms, or with any questions or concerns. Compliance is encouraged with any medications and follow up testing that is ordered. It is a privilege to be allowed the opportunity to participate in? your urological care.? Again, if you have any questions or concerns If you have any questions or concerns please do not hesitate to contact me. The office is [phone]. This note is constructed using voice recognition software. While every effort has been made to ensure accuracy bank vault attendant errors may have been included. Yours sincerely, PRAKASH Baker Orders: Orders US scrotum Today N43.3 - Hydrocele, unspecified AMB Urinalysis Automated Today R33.9 - Retention of urine, unspecified Patient Instructions: The patient had an opportunity to ask questions regarding the treatment plan. All questions were answered. Physical exam, labs, and imaging were discussed and reviewed in detail. As well as risks, benefits, and discussion of treatment choices. No major barriers to understanding were identified. The patient expressed understanding and agreement with the above treatment plan. The patient was made aware they should contact our office by phone for worsening of their current condition, the appearance of new symptoms, or with any questions or concerns. Compliance is encouraged with any medications and follow up testing that is ordered. It is a privilege to be allowed the opportunity to participate in? your urological care.? Again, if you have any questions or concerns If you have any questions or concerns please do not hesitate to contact me. The office is [phone]. This note is constructed using voice recognition software. While every effort has been made to ensure accuracy bank vault attendant errors may have been included. Yours sincerely, PRAKASH Baker Coding Level of Care Code Est Pt Level 3 (04833) Diagnoses Kidney cyst, acquired N28.1 Groin pain R10.30
== END 2023-09-09 15:43 | disposition home or self-care (01) ==
PROVIDERS: PCP Nurse Practitioner Family; Visit Provider Nurse Practitioner Family
DX: N28.1 Cyst of kidney, acquired (principal); R10.30 Lower abdominal pain, unspecified; R33.9 Retention of urine, unspecified
CPT/HCPCS: 99213

== ENCOUNTER → 2023-09-09 15:07 | Outpatient (BNVA) | payer BC, SELFPAY | PROVIDERS: PCP Nurse Practitioner Family; Visit Provider Nurse Practitioner Family | DX: N28.1 Cyst of kidney, acquired (principal); R10.30 Lower abdominal pain, unspecified; R33.9 Retention of urine, unspecified | CPT/HCPCS: 81003 ==

== ENCOUNTER 2023-09-21 11:26 | Outpatient (AMB) | payer OTHER, BC, SELFPAY ==
[2023-09-21 11:34] VITALS: BP 120/76; PULSE 72; TEMP 36.4; O2SAT 92; BMI 37.4
--- NOTE | 2023-09-21 11:34 | MHC.OFFWIV ---
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 Patient reports a work related injury. Date of Injury: 09/21/2023. Pt was lifting a heavy garage door when he felt spasm and pain over the right arm and shoulder. Pain when he moves the arm or lifts any weights. [facility] Medical History Seasonal allergies Left knee injury History of gastroesophageal reflux (GERD) Surgical History H/O inguinal hernia repair H/O umbilical hernia repair Hx of colonoscopy History of esophagogastroduodenoscopy (EGD) History of appendectomy Family History Father Smoker Mother Stroke Former smoker Maternal Grandfather No problems noted. Maternal Grandmother No problems noted. Paternal Grandfather Smoker Emphysema, unspecified Paternal Grandmother No problems noted. Brother No problems noted. Daughter No problems noted. Son No problems noted. Social History Are you a primary animal care worker to a significant other at home: No Do you presently have visiting nurse or other home services: No Alcohol intake: never Patient Tobacco Use Status: Former Tobacco user Quit Date: 2009 Tobacco use type: Cigarette e-Cigarette/Vaping Use: Never Used Second Hand Smoke Exposure: Yes Substance Use Type: Marijuana service: Yes ([employer]) Current occupational status: employed Current occupation: [employer] Current occupational exposures/hazards: No Cognitive needs: No Hearing needs: No Vision needs: No Physical Exam Vital Signs: Last Vital Signs Temp 97.6 F 09/21/23 11:34 Pulse 72 09/21/23 11:34 BP 120/76 09/21/23 11:34 Pulse Ox 92 09/21/23 11:34 Oxygen Delivery Method Room Air 09/21/23 11:34 BMI result Body Mass Index 37.4 Extrem Other: Right arm/shoulder: No visible swelling. No bruising. Full range of motion. Assessment & Plan Assessment & Plan (1) Sprain of right shoulder: Code(s): S43.401A - Unspecified sprain of right shoulder joint, initial encounter Plan: Cyclobenzaprine added to the regimen. Work restrictions given. Medications: New cyclobenzaprine 10 mg PO BEDTIME 14 tabs 0RF Coding Level of Care Code Est Pt Level 3 (81970) Diagnoses Sprain of right shoulder S43.401A
== END 2023-09-21 12:32 | disposition home or self-care (01) ==
PROVIDERS: PCP Nurse Practitioner Family; Visit Provider Internal Medicine
DX: S43.401A Unspecified sprain of right shoulder joint, initial encounter (principal)
CPT/HCPCS: 99213

== ENCOUNTER 2023-10-11 15:29 | Outpatient (AMB) | payer BC, SELFPAY ==
--- NOTE | 2023-10-11 15:40 | MHC.PC.OV ---
Vital Signs 10/11/23 15:42 Height 6 ft 3 in Weight 294 lb BMI 36.7 BP 120/84 Blood Pressure Location Rt brachial Position Sitting Pulse 68 Pulse Source Pulse Oximeter Pulse Oximetry (%) 98 Oxygen Delivery Method Room Air Intake Visit Reasons: PE with labs Intake Note: Patient here for physical exam. Allergies steroids Adverse Reaction (Intermediate, Verified 10/11/23 16:11) Irritable Medication List - Last Reconciled 10/11/23 by PRAKASH Rodgers No Known Home Meds Tobacco use date assessed: 10/11/23 Dental Screening Dental Screen Date: 10/11/23 Did you have a dental visit in the last 12 months?: Yes Did you have a dental problem in the last 6 months where you did not have access to dental care?: No Was dental information given to patient?: Patient has dentist HPI PE with labs HPI Details Pt is here for a PE. Will order labs. 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 Will write this letter. [facility] Medical History Seasonal allergies Left knee injury History of gastroesophageal reflux (GERD) Surgical History H/O inguinal hernia repair H/O umbilical hernia repair Hx of colonoscopy History of esophagogastroduodenoscopy (EGD) History of appendectomy Family History Father Smoker Mother Stroke Former smoker Maternal Grandfather No problems noted. Maternal Grandmother No problems noted. Paternal Grandfather Smoker Emphysema, unspecified Paternal Grandmother No problems noted. Brother No problems noted. Daughter No problems noted. Son No problems noted. Social History Are you a primary adult caregiver to a significant other at home: No Do you presently have visiting nurse or other home services: No Alcohol intake: never Patient Tobacco Use Status: Former Tobacco user Quit Date: 2009 Tobacco use type: Cigarette e-Cigarette/Vaping Use: Never Used Second Hand Smoke Exposure: Yes Substance Use Type: Marijuana service: Yes ([employer]) Current occupational status: employed Current occupation: [employer] Current occupational exposures/hazards: No Cognitive needs: No Hearing needs: No Vision needs: No Questionnaire Thrive Questionnaire Date Thrive assessed: 10/07/22 AUDIT C Alcohol Use Questionnaire (AUDIT-C) 1. How often do you have a drink containing alcohol?: Never 3. How often do you have six or more drinks on one occasion?: Never Total Score: 0 Score Reviewed/Action Taken: No SERVANDO-7 AMB Questionnaire SERVANDO-7 Date SERVANDO - 7 assessed: 10/07/22 Source: Developed by Drs. Holden Davis, Ani Tom, Monroe Delgado and colleagues, with an educational raj from [employer]. Review of Systems Const Denies chills and Denies fever(s) Eyes Denies blurry vision ENT Denies vertigo, Denies dizziness and Denies sore throat Card Denies chest pain at rest, Denies chest pain with activity, Denies diaphoresis, Denies dyspnea and Denies dyspnea on exertion Resp Denies cough, Denies dyspnea, Denies dyspnea on exertion and Denies wheezing GI Denies abdominal pain, Denies melena, Denies hematochezia, Denies constipation, Denies diarrhea and Denies loose stools Denies hematuria Musc Denies numbness and Denies tingling Skin/Breast Denies lesions Neuro Denies vertigo, Denies dizziness, Denies numbness and Denies tingling Psych Denies anxiety, Denies depression, Denies homicidal ideation, Denies suicidal ideation and Denies other (substance abuse) Aller/Immun Denies wheezing Physical exam (Primary Care) Vital Signs: Last Vital Signs Pulse 68 10/11/23 15:42 BP 120/84 10/11/23 15:42 Pulse Ox 98 10/11/23 15:42 Oxygen Delivery Method Room Air 10/11/23 15:42 BMI result Body Mass Index 36.7 Tobacco/Smoking Status: Tobacco use Status Tobacco use date assessed 10/11/23 10/11/23 15:45 Patient Tobacco Use Status Former Tobacco user 10/11/23 15:41 Tobacco use type Cigarette 10/11/23 15:41 e-Cigarette/Vaping Use Never Used 10/11/23 15:41 Thrive Assessment: Date of Thrive Assessment Date Thrive assessed 10/07/22 10/11/23 15:41 Const General: cooperative Nutritional Appearance: well nourished Orientation/consciousness: patient oriented x3 HENMT Head: Yes normal to inspection, Yes normocephalic and Yes atraumatic Ears: TM's normal bilaterally Eyes General: appearance normal, both eyes and all related structures Alignment and Position: alignment normal and position normal Neck Neck: Yes normal visual inspection and Yes no lymphadenopathy Thyroid: Thyroid normal Resp Effort & Inspection: normal respiratory effort Auscultation: clear to auscultation bilaterally Cardio Rate: regular rate Rhythm: regular rhythm Heart sounds: S1 normal heart sound present, S2 normal heart sound present and no murmurs GI Palpation (GI): Soft to palpation and nontender Auscultation: normal bowel sounds Male General Exam: Yes normal external exam Penis: normal penis Scrotum: scrotum normal, testes descended bilaterally and no inguinal hernias Testes: no testicular mass Skin Rashes: no rashes Neuro General: patient oriented x3, moves all extremities, no focal motor deficits and deep tendon reflexes 2+ bilaterally Romberg Test: Negative Psych Appearance: grossly normal Mental Status: mental status grossly normal Speech and movement: Normal speech and movement present Affect: normal affect Attitude: cooperative Thought process: Normal thought process present Thought content: Normal thought content present Insight: Good insight present (Psych) Judgement: Good judgement present (Psych) Assessment and Plan Assessment & Plan (1) Physical exam: Code(s): Z00.00 - Encounter for general adult medical examination without abnormal findings Plan: Labs ordered Plan The patient agreed to the use of a infertility medical assistant for this encounter. Scribed for PRAKASH Paredes by Jia Olivier infertility medical assistant, on 10/11/2023 at 16:00 EST. Orders: Orders Complete Blood Count Auto Diff Today Z00.00 - Encounter for general adult medical examination without abnormal findings Lipid Panel Today Z00.00 - Encounter for general adult medical examination without abnormal findings Comprehensive [place]. Panel Fast Today Z00.00 - Encounter for general adult medical examination without abnormal findings TSH reflex Free T4 Today Z00.00 - Encounter for general adult medical examination without abnormal findings UA CC w/rflx Micro + Cult Today Z00.00 - Encounter for general adult medical examination without abnormal findings Coding Level of Care Code Est Pt Prev Care 40-64y(59158) Diagnoses Physical exam Z00.00
[2023-10-11 15:42] VITALS: BP 120/84; PULSE 68; O2SAT 98; BMI 36.7
== END 2023-10-11 16:24 | disposition home or self-care (01) ==
PROVIDERS: Visit Provider Nurse Practitioner Family
DX: Z00.00 Encounter for general adult medical examination without abnormal findings (principal)
CPT/HCPCS: 99396

== ENCOUNTER 2024-01-05 09:18 | Outpatient (AMB) | payer OTHER, BC, SELFPAY ==
[2024-01-05 09:23] VITALS: BP 148/90; PULSE 80; TEMP 36.6; O2SAT 95; BMI 36.7
--- NOTE | 2024-01-05 09:23 | MHC.OFFWIV ---
Intake Vital Signs 01/05/24 09:23 Height 6 ft 3 in Weight 294 lb BMI 36.7 BP 148/90 H Blood Pressure Location Rt brachial Position Standing Pulse 80 Pulse Source Pulse Oximeter Temp 97.8 F Temp Source Temporal Artery Scan Pulse Oximetry (%) 95 Intake Visit Reasons: lower right back injury( Work COMP) Intake Note: pt is here for lower right back injury, while at work Patient Tobacco Use Status: Former Tobacco user Allergies steroids Adverse Reaction (Intermediate, Verified 01/05/24 09:24) Irritable Do you need a note to return to daycare/school/sports/work: No HPI HPI Comments History of Present Illness Details This is a 43-year-old male with a past medical history of inguinal and umbilical hernia surgery only presenting for evaluation of right low back pain that started this morning and is a work-related injury. 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 This morning the patient was squatting to burr picker a chair weighing less than 20 lb., and upon standing felt the sudden onset of aching and throbbing pain in his right low back. Patient denies any radiation of pain and has not taken any medication for treatment of his discomfort. Patient has been able to ambulate and drove himself to the urgent care today. [facility] Medical History Seasonal allergies Left knee injury History of gastroesophageal reflux (GERD) Surgical History H/O inguinal hernia repair H/O umbilical hernia repair Hx of colonoscopy History of esophagogastroduodenoscopy (EGD) History of appendectomy Family History Father Smoker Mother Stroke Former smoker Maternal Grandfather No problems noted. Maternal Grandmother No problems noted. Paternal Grandfather Smoker Emphysema, unspecified Paternal Grandmother No problems noted. Brother No problems noted. Daughter No problems noted. Son No problems noted. Social History Are you a primary resident care technician to a significant other at home: No Do you presently have visiting nurse or other home services: No Alcohol intake: never Patient Tobacco Use Status: Former Tobacco user Tobacco use type: Cigarette e-Cigarette/Vaping Use: Never Used Second Hand Smoke Exposure: Yes Substance Use Type: Marijuana service: Yes ([employer]) Current occupational status: employed Current occupation: [employer] Current occupational exposures/hazards: No Cognitive needs: No Hearing needs: No Vision needs: No Review of Systems Const All systems reviewed & are unremarkable except as noted in HPI and below Reports as per HPI Eyes Reports as per HPI ENT Reports no additional complaints Card Reports as per HPI Resp Reports as per HPI GI Reports as per HPI Reports no additional complaints Musc Reports as per HPI, Reports back pain (right low back), Denies arthralgias and Denies radiating pain into limb Skin/Breast Reports system reviewed and no additional complaints, except as documented Psych Reports no additional complaints Physical Exam Vital Signs: Last Vital Signs Temp 97.8 F 01/05/24 09:23 Pulse 80 01/05/24 09:23 BP 148/90 H 01/05/24 09:23 Pulse Ox 95 01/05/24 09:23 BMI result Body Mass Index 36.7 Patient is mildly hypertensive. Const General: cooperative, healthy appearing, comfortable, no acute distress, well developed, alert and awake Nutritional Appearance: well nourished Orientation/consciousness: patient oriented x3 Limitations: no limitations Back/Spine/Pelvis Other: pain elicited with right hip flexion against resistance, 5/5 strength lower extremities bilaterally, sensation intact distal lower extremities bilaterally Back: back tenderness (right lumbar paraspinous musculature) Thoracic/Lumbar Spine: thoracic and lumbar spine normal to inspection, No thoraco-lumbar ROM normal, pain with thoraco-lumbar ROM, paraspinal muscle tenderness on the right in the mid lumbar and in the lower lumbar, No thoracic spinal tenderness and No lumbar spinal tenderness Sacroiliac joints: bilaterally nontender Sacrum: no tenderness Coccyx: no tenderness Skin General skin exam: no rashes or lesions noted Neuro General: patient oriented x3 Psych Appearance: grossly normal Mental Status: mental status grossly normal Insight: Good insight present (Psych) Judgement: Good judgement present (Psych) Assessment & Plan Assessment & Plan (1) Right-sided low back pain without sciatica: Comment: No red flag signs concerning for cauda equina or vertebral injury; imaging deferred at this time. Code(s): M54.50 - Low back pain, unspecified Qualifiers: Chronicity: acute Qualified Code(s): M54.50 - Low back pain, unspecified Plan: Naprosyn and Robaxin as prescribed; patient will be given a work note for three days and follow-up on Wednesday if symptoms have not improved. Medications: New naproxen (Naprosyn) 500 mg PO BID 20 tabs 0RF methocarbamol 750 mg PO Q8H 20 tabs 0RF Coding Level of Care Code Est Pt Level 3 (46413) Diagnoses Acute right-sided low back pain without sciatica M54.50 Chronicity: acute Time Spent (min) 25
== END 2024-01-05 09:53 | disposition home or self-care (01) ==
PROVIDERS: PCP Nurse Practitioner Family; Visit Provider Physician Assistant
DX: M54.50 Low back pain, unspecified (principal); X50.0XXA Overexertion from strenuous movement or load, initial encounter; Z04.2 Encounter for examination and observation following work accident
CPT/HCPCS: 99213

== ENCOUNTER 2024-01-13 08:08 | Outpatient (AMB) | payer OTHER, BC, SELFPAY ==
--- NOTE | 2024-01-13 08:09 | MHC.OFFWIV ---
Intake Vital Signs 01/13/24 08:13 Height 6 ft 3 in Weight 288 lb BMI 36.0 BP 118/80 Blood Pressure Location Lt brachial Position Standing Pulse 85 Pulse Source Pulse Oximeter Temp 98.2 F Temp Source Oral Pulse Oximetry (%) 96 Oxygen Delivery Method Room Air Intake Visit Reasons: lower back pain (here last wk) Intake Note: pt c/o lower back pain. Started last week, Ongoing pain Patient Tobacco Use Status: Former Tobacco user Allergies steroids Adverse Reaction (Intermediate, Verified 01/13/24 08:09) Irritable Do you need a note to return to daycare/school/sports/work: Yes HPI HPI Comments History of Present Illness Details Patient is a 43-year-old male who sustained a work-related injury on January 04 while picking up a chair that we had less than 20 lb. [place] immediate pain in his right low back and was evaluated at this medical facility. He was given prescriptions for Robaxin and NSAIDs, which he states he has been taking as directed. He states he is still having pain which is worse when he bends over, when he sits for too long and then goes to stand up and when he twists to his left as well as if he tried to pick something up which may is more than 5 lb. He states he tried to go back to work on 01/11 but he was unable to perform his job properly due to the continued pain. He states he has been doing some yoga stretching which seems to help a little bit. [facility] Medical History Seasonal allergies Left knee injury History of gastroesophageal reflux (GERD) Surgical History H/O inguinal hernia repair H/O umbilical hernia repair Hx of colonoscopy History of esophagogastroduodenoscopy (EGD) History of appendectomy Family History Father Smoker Mother Stroke Former smoker Maternal Grandfather No problems noted. Maternal Grandmother No problems noted. Paternal Grandfather Smoker Emphysema, unspecified Paternal Grandmother No problems noted. Brother No problems noted. Daughter No problems noted. Son No problems noted. Social History Are you a primary cardiac care unit nurse to a significant other at home: No Do you presently have visiting nurse or other home services: No Alcohol intake: never Patient Tobacco Use Status: Former Tobacco user Tobacco use type: Cigarette e-Cigarette/Vaping Use: Never Used Second Hand Smoke Exposure: Yes Substance Use Type: Marijuana service: Yes ([employer]) Current occupational status: employed Current occupation: [employer] Current occupational exposures/hazards: No Cognitive needs: No Hearing needs: No Vision needs: No Review of Systems Const All systems reviewed & are unremarkable except as noted in HPI and below Physical Exam Vital Signs: Last Vital Signs Temp 98.2 F 01/13/24 08:13 Pulse 85 01/13/24 08:13 BP 118/80 01/13/24 08:13 Pulse Ox 96 01/13/24 08:13 Oxygen Delivery Method Room Air 01/13/24 08:13 BMI result Body Mass Index 36.0 Const General: cooperative, healthy appearing and comfortable Orientation/consciousness: patient oriented x3 HEENT Head: Yes normal to inspection General nose exam: Normal external nose present Face and sinus: Yes normal facial exam Eyes General: appearance normal, both eyes and all related structures Resp Effort & Inspection: normal respiratory effort and able to speak in complete sentences General: Yes no CVA tenderness Back/Spine/Pelvis Back: no CVA tenderness Cervical Spine: cervical ROM normal, No cervical muscular tenderness and Cervical spine tenderness Thoracic/Lumbar Spine: thoracic and lumbar spine normal to inspection, straight leg raise negative bilaterally, thoraco-lumbar ROM limited with forward flexion, with lateral flexion to the left and with rotation to the left, thoraco-lumbar spasm on the right in the upper lumbar, No thoracic spinal tenderness and No lumbar spinal tenderness Neuro General: patient oriented x3 Extrem Other: Straight leg raise test negative on right; Straight leg raise test negative on left; Reflexes normal ankle and knee bilaterally; motor strength normal bilaterally Assessment & Plan Assessment & Plan (1) Right-sided low back pain without sciatica: Comment: No red flag signs concerning for cauda equina or vertebral injury; imaging deferred at this time. Code(s): M54.50 - Low back pain, unspecified Qualifiers: Chronicity: acute Qualified Code(s): M54.50 - Low back pain, unspecified Plan: Gave patient work note to return to work today with the following restrictions; 1. The patient cannot lift over 5lbs. 2. The patient cannot sit for more than 30 mins at a time. 3. The patient should be provided breaks every 2-4 hours to use heat or ice, as needed. 4. The patient should be referred to an appropriate workman's compensation facility for follow up guidance and treatment by his employer. Recommended he follow-up with work connection, if possible but he should check with his employer, [employer]. Also recommended he continue the stretching, NSAIDs and muscle relaxer. Coding Level of Care Code Est Pt Level 4 (07014) Diagnoses Acute right-sided low back pain without sciatica M54.50 Chronicity: acute
[2024-01-13 08:13] VITALS: BP 118/80; PULSE 85; TEMP 36.8; O2SAT 96; BMI 36.0
== END 2024-01-13 09:13 | disposition home or self-care (01) ==
PROVIDERS: PCP Nurse Practitioner Family; Visit Provider Physician Assistant
DX: M54.50 Low back pain, unspecified (principal); Z04.2 Encounter for examination and observation following work accident
CPT/HCPCS: 99214

== ENCOUNTER → 2024-01-17 10:40 | Outpatient (BNVA) | payer OTHER, SELFPAY | PROVIDERS: PCP Nurse Practitioner Family; Visit Provider Internal Medicine | DX: R10.815 Periumbilic abdominal tenderness (principal); M54.50 Low back pain, unspecified | CPT/HCPCS: 74176; 99203 ==

== ENCOUNTER → 2024-01-21 08:23 | Outpatient (BNVA) | payer OTHER, SELFPAY | PROVIDERS: PCP Nurse Practitioner Family; Visit Provider Internal Medicine | DX: M54.50 Low back pain, unspecified (principal); M47.817 Spondylosis without myelopathy or radiculopathy, lumbosacral region | CPT/HCPCS: 99214 ==

== ENCOUNTER 2024-01-24 09:02 | Outpatient (AMB) | payer OTHER, SELFPAY ==
--- NOTE | 2024-01-24 09:12 | MHC.OFFVIS ---
Vital Signs 01/24/24 09:13 Height 6 ft 3 in Weight 279 lb BMI 34.9 BP 130/71 Blood Pressure Location Rt brachial Position Sitting Pulse 71 Intake Visit Reasons: Abd wall hernia surg site pain Intake Note: Patient here c/o pressure at Rt lower abdomen area. Reports pressure got better for a while but started flaring after recent back injury at work. Cardiology Clinical Consultant Required: No Accompanied by: Self / Same As Patient Allergies steroids Adverse Reaction (Intermediate, Verified 01/24/24 09:15) Irritable HPI Comments Details: Patient is known to me from the past. Patient presents here for evaluation of his right groin and abdomen. He is status post right inguinal hernia repair and umbilical hernia. Proximally year ago. While at his place of employment, he was doing strenuous activities and felt significant back pain and a ?pop ?. Pain radiates around to his right lower quadrant. Patient has no other abdominal issues or complaints. He is tolerating a diet. Having regular bowel habits. He has not noticed any bulge or swelling is prior hernia repair site. [facility] Medical History Seasonal allergies Left knee injury History of gastroesophageal reflux (GERD) Surgical History H/O inguinal hernia repair H/O umbilical hernia repair Hx of colonoscopy History of esophagogastroduodenoscopy (EGD) History of appendectomy Family History Father Smoker Mother Stroke Former smoker Maternal Grandfather No problems noted. Maternal Grandmother No problems noted. Paternal Grandfather Smoker Emphysema, unspecified Paternal Grandmother No problems noted. Brother No problems noted. Daughter No problems noted. Son No problems noted. Social History Are you a primary primary care sales representative to a significant other at home: No Do you presently have visiting nurse or other home services: No Alcohol intake: never Patient Tobacco Use Status: Former Tobacco user Tobacco use type: Cigarette e-Cigarette/Vaping Use: Never Used Second Hand Smoke Exposure: Yes Substance Use Type: Marijuana service: Yes ([employer]) Current occupational status: employed Current occupation: [employer] Current occupational exposures/hazards: No Cognitive needs: No Hearing needs: No Vision needs: No Physical Exam Vital Signs: Last Vital Signs Pulse 71 01/24/24 09:13 BP 130/71 01/24/24 09:13 BMI result Body Mass Index 34.9 GI Other: Patient was examined both supine and standing with Valsalva. Abdomen mildly corpulent, soft, benign. No evidence of any umbilical or bilateral inguinal hernias. Genitalia within normal limits. Assessment & Plan Assessment & Plan (1) Abdominal wall pain in right lower quadrant: Onset Date: ~01/10/23 Code(s): R10.31 - Right lower quadrant pain Category: Medical (2) Right-sided low back pain without sciatica: Comment: No red flag signs concerning for cauda equina or vertebral injury; imaging deferred at this time. Code(s): M54.50 - Low back pain, unspecified Category: Surgical Qualifiers: Chronicity: acute Qualified Code(s): M54.50 - Low back pain, unspecified (3) Groin pain: Code(s): R10.30 - Lower abdominal pain, unspecified Category: Surgical Plan Patient also had a recent CT scan was demonstrated no evidence of any abdominal wall hernia. At present, no acute surgical issues. Patient may proceed with his back therapy for his symptomatic back issues. No acute surgical issues at this time. All questions answered. Patient will otherwise follow-up p.r.n. Coding Level of Care Code Est Pt Level 4 (00803) Diagnoses Abdominal wall pain in right lower quadrant R10.31 Acute right-sided low back pain without sciatica M54.50 Chronicity: acute Groin pain R10.30
[2024-01-24 09:13] VITALS: BP 130/71; PULSE 71; BMI 34.9
== END 2024-01-24 09:21 | disposition home or self-care (01) ==
PROVIDERS: PCP Nurse Practitioner Family; Visit Provider Surgery
DX: R10.31 Right lower quadrant pain (principal); M54.50 Low back pain, unspecified; R10.30 Lower abdominal pain, unspecified
CPT/HCPCS: 99213

== ENCOUNTER → 2024-01-24 09:02 | Outpatient (BNVA) | payer OTHER, SELFPAY | PROVIDERS: PCP Nurse Practitioner Family; Visit Provider Surgery | DX: R10.31 Right lower quadrant pain (principal); M54.50 Low back pain, unspecified | CPT/HCPCS: 99212 ==

== ENCOUNTER → 2024-02-02 07:44 | Outpatient (BNVA) | payer OTHER, SELFPAY | PROVIDERS: PCP Nurse Practitioner Family; Visit Provider Internal Medicine | DX: M54.50 Low back pain, unspecified (principal) | CPT/HCPCS: 99213 ==

== ENCOUNTER 2024-02-07 13:01 | Outpatient (REF) | payer OTHER, SELFPAY ==
--- NOTE | ~2024-02-07 | MR_ITS ---
MR LUMBAR SPINE WITHOUT CONTRAST CLINICAL INFORMATION: Twisting/lifting injury with low back pain and groin pain. COMPARISON: None available. TECHNIQUE: MRI of the lumbar spine was obtained using routine sequences without contrast. FINDINGS: There are 5 nonrib-bearing lumbar-type vertebral bodies. There is moderate to severe disc volume loss at L5-S1. There is disc desiccation at L3-L4 and L5-S1. There are Modic type I and type II endplate signal changes at L5-S1. There is no additional bone marrow edema. There are no acute fractures. The vertebral body heights are maintained. There are multilevel endplate osteophytes. The conus terminates at the L1 level. There are no significant extraspinal soft tissue findings. L1-L2: Posterior disc contour is normal. There is no central canal stenosis and there is no foraminal stenosis. L2-L3: There is a right lateral disc protrusion associated with an annular fissure that results in mass effect on the extraforaminal right L2 nerve root. Annular disc bulge and mild bilateral facet arthropathy. No central canal stenosis. No significant left foraminal stenosis. L3-L4: Diffuse annular disc bulge and bilateral facet arthropathy. There is no central canal stenosis. There is mild foraminal encroachment bilaterally. L4-L5: There is a diffuse annular disc bulge and there is moderate bilateral facet arthropathy. There is no central canal stenosis. A right lateral disc protrusion results in mild to moderate right-sided foraminal encroachment without exiting nerve root compression. There is mild left foraminal encroachment. L5-S1: There is a shallow broad-based left paracentral disc protrusion that results in posterior mass effect on the traversing left S1 nerve root within the left subarticular zone and contacts without resulting in mass effect on the traversing right S1 nerve root within the right subarticular zone. Background annular disc bulge and bilateral facet arthropathy. There is mild to moderate bilateral foraminal encroachment. MR/MR lumbar spine wo con IMPRESSION: * At L2-L3, there is a right lateral disc protrusion associated with an annular fissure that results in mass effect on the extraforaminal right L2 nerve root. * At L4-L5, a right lateral disc protrusion results in mild to moderate right-sided foraminal encroachment without exiting nerve root compression. * At L5-S1, there is a shallow broad-based left paracentral disc protrusion that results in posterior mass effect on the traversing left S1 nerve root within the left subarticular zone and contacts without resulting in mass effect on the traversing right S1 nerve root within the right subarticular zone. Modic type I and Modic type II endplate signal changes at this level. Electronically signed by: Nicolás Rahman MD 02/11/2024 04:49 PM EDT
== END 2024-02-07 13:02 | disposition home or self-care (01) ==
LOC: HO.MRI 13:01
PROVIDERS: PCP Nurse Practitioner Family; Visit Provider Internal Medicine
DX: M54.50 Low back pain, unspecified (principal); R10.30 Lower abdominal pain, unspecified
CPT/HCPCS: 72148

== ENCOUNTER 2024-02-10 07:00 | Outpatient (RCR) | payer OTHER, BC, SELFPAY ==
--- NOTE | 2024-01-26 07:57 | MHC.PT.EP ---
[facility] [place] Office [place] Office [place] Office [address] Erick Booth [address] [phone] F: [phone] F: [phone] F: [phone] F: [phone] Physical Therapy Plan of Care Date of Evaluation: 01/26/24 Date of Surgery: Diagnosis: low back pain Assessment: Patient is a 43 year old R handed male who presents with s/s consistent with low back pain related to a work incident involving bending forward and lifting. He works with daily job demands including [employer] for [employer]. Patient past medical history includes hernia repairs in the last year. Current impairments include pain, tissue tension, flexibility, gait mechanics, posture, ROM, strength, activity tolerance and functional mobility. Functional limitations include decreased ability to sit, stand, transfer, sleep, walk and work/bend/squat. Patient is motivated with good rehab potential. Skilled PT will address impairments and functional limitations in order to achieve goals. 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 Manual therapy to restore motion and function. Therapeutic exercise to improve strength and flexibility. Neuromuscular re-education for posture and balance. Therapeutic activities to return to functional activities of daily living. Electronically signed by: Carlos Khanna, PT Please sign and return to therapist. Thank you for your referral.
--- NOTE | 2024-07-05 09:48 | MHC.PT.DC ---
[facility] [place] Office [place] Office [place] Office [address] Erick Booth [address] [phone] F: [phone] F: [phone] F: [phone] F: [phone] Physical Therapy Discharge Report Diagnosis: low back pain Date of Surgery: Date of Evaluation: 01/26/24 Date of Discharge: 02/16/24 Treatments to Date: 6 Cancellations to Date: No Shows to Date: Discharge Status: Improved Function Independent with HEP Discharge Summary: 02/10/24: pt nearing PLOF with next to no s/s. good body mechanics and good carryover. good understanding of managing back longterm. appropriate to return to work related duties. 02/08/24: pt progressing well with skilled PT. no adverse reactions. continue to progress as tolerated. no s/s in LE. reduced lateral shift present for the last week. MRI done yesterday. 02/03/24: pt progressing handsomely with reduced s/s and progressing activity - work related. no s/s with today's program. continue to progress. MRI next week. 01/31/24: s/s conitnue to improved. pt still needs edu and practice on body mechanics. continue to progress as tolerated. 01/28/24: progressing well with skilled PT. no adverse reactions from above program. s/s reducing in severity. lat shift correction providing relief. we held on progressing HEP due to pt presenting with lat shift still. Patient is a 43 year old R handed male who presents with s/s consistent with low back pain related to a work incident involving bending forward and lifting. He works with daily job demands including [employer] for [employer]. Patient past medical history includes hernia repairs in the last year. Current impairments include pain, tissue tension, flexibility, gait mechanics, posture, ROM, strength, activity tolerance and functional mobility. Functional limitations include decreased ability to sit, stand, transfer, sleep, walk and work/bend/squat. Patient is motivated with good rehab potential. Skilled PT will address impairments and functional limitations in order to achieve goals. Electronically signed by: Carlos Khanna, PT Please sign and return to therapist. Thank you for your referral.
== END 2024-07-05 09:49 | disposition home or self-care (01) ==
LOC: HO.PTCHIC 07:00
PROVIDERS: PCP Nurse Practitioner Family; Visit Provider Internal Medicine
DX: M54.50 Low back pain, unspecified (principal)
CPT/HCPCS: 97110; 97162; 97530

== ENCOUNTER → 2024-02-11 07:46 | Outpatient (BNVA) | payer OTHER, SELFPAY | PROVIDERS: PCP Nurse Practitioner Family; Visit Provider Internal Medicine | DX: M54.50 Low back pain, unspecified (principal) | CPT/HCPCS: 99213 ==

== ENCOUNTER → 2024-08-21 09:23 | Outpatient (BNVA) | payer OTHER, SELFPAY | PROVIDERS: PCP Nurse Practitioner Family; Visit Provider Internal Medicine | DX: K43.9 Ventral hernia without obstruction or gangrene (principal); R10.31 Right lower quadrant pain; S39.011A Strain of muscle, fascia and tendon of abdomen, initial encounter; X50.0XXA Overexertion from strenuous movement or load, initial encounter | CPT/HCPCS: 99202 ==

== ENCOUNTER 2024-08-23 08:28 | Outpatient (AMB) | payer OTHER, SELFPAY ==
--- NOTE | 2024-08-23 08:30 | A.OFFVIS_ITS ---
Vital Signs 08/23/24 08:37 Height 6 ft 3 in Weight 275 lb BMI 34.4 BP 128/76 Blood Pressure Location Lt brachial Position Sitting Pulse 76 Intake Visit Reasons: hernia Intake Note: Patient here for hernia repair Patient cc: hernia pain x couples of dates. 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 He presents here because of progression of symptoms. He had swelling there and has having difficulty ambulating. Patient was seen in the past for a small asymptomatic left inguinal hernia which has been treated conservatively. Patient was otherwise tolerating a diet. Having regular bowel habits. Chart was reviewed and patient evaluated [facility] Medical History Seasonal allergies Left knee injury History of gastroesophageal reflux (GERD) Surgical History H/O inguinal hernia repair H/O umbilical hernia repair Hx of colonoscopy History of esophagogastroduodenoscopy (EGD) History of appendectomy Family History Father Smoker Mother Stroke Former smoker Maternal Grandfather No problems noted. Maternal Grandmother No problems noted. Paternal Grandfather Smoker Emphysema, unspecified Paternal Grandmother No problems noted. Brother No problems noted. Daughter No problems noted. Son No problems noted. Social History Are you a primary care center manager to a significant other at home: No Do you presently have visiting nurse or other home services: No Alcohol intake: never Patient Tobacco Use Status: Former Tobacco user Tobacco use type: Cigarette e-Cigarette/Vaping Use: Never Used Second Hand Smoke Exposure: Yes Substance Use Type: Marijuana service: Yes ([employer]) Current occupational status: employed Current occupation: [employer] Current occupational exposures/hazards: No Cognitive needs: No Hearing needs: No Vision needs: No Physical Exam Vital Signs: Last Vital Signs Pulse 76 08/23/24 08:37 BP 128/76 08/23/24 08:37 BMI result Body Mass Index 34.4 Const Other: Very large total male GI Other: Patient was examined both supine and standing with Valsalva. Abdomen moderately corpulent, soft, benign. Left groin negative. Genitalia within normal limits. Right groin demonstrates no hernia. Patient was tenderness along the groin musculature. He is also having difficulty ambulating and with certain positions feels pain in his groin area Assessment & Plan Assessment & Plan (1) Strain of right inguinal muscle: Code(s): S39.013A - Strain of muscle, fascia and tendon of pelvis, initial encounter Category: Surgical Plan At present, patient will be treated as a groin pull/strain. Motrin, ice, off work for 2 weeks and will see me after that. All questions answered Coding Level of Care Code Est Pt Level 4 (30528) Diagnoses Strain of right inguinal muscle S39.013A
[2024-08-23 08:37] VITALS: BP 128/76; PULSE 76; BMI 34.4
== END 2024-08-23 08:54 | disposition home or self-care (01) ==
LOC: HO.HGS 08:28
PROVIDERS: PCP Nurse Practitioner Family; Visit Provider Surgery
DX: S39.013A Strain of muscle, fascia and tendon of pelvis, initial encounter (principal)
CPT/HCPCS: 99214

== ENCOUNTER → 2024-08-23 08:28 | Outpatient (BNVA) | payer OTHER, SELFPAY | PROVIDERS: PCP Nurse Practitioner Family; Visit Provider Surgery | DX: S39.013A Strain of muscle, fascia and tendon of pelvis, initial encounter (principal); X50.0XXA Overexertion from strenuous movement or load, initial encounter; Y93.9 Activity, unspecified; Y92.9 Unspecified place or not applicable; Y99.0 Civilian activity done for income or pay | CPT/HCPCS: 99212 ==

== ENCOUNTER 2024-09-06 08:00 | Outpatient (AMB) | payer OTHER, SELFPAY ==
--- NOTE | 2024-09-06 08:03 | MHC.OFFVIS ---
Intake Visit Reasons: follow up hernia Intake Note: Patient here to follow up pain on Rt groin. States pain never went away after hernia repair. Allergies steroids Adverse Reaction (Intermediate, Verified 08/23/24 08:29) Irritable Medication List - Last Reconciled 09/06/24 by Nael Santana MD ibuprofen 800 mg PO Q8H PRN methocarbamol 750 mg PO Q8H naproxen (Naprosyn) 500 mg PO BID HPI Comments Details: Patient was persistent right groin pain. There was some improvement but certain extremes of motion silk cause him significant discomfort. Patient was otherwise tolerating a diet. He is having regular bowel habits. He has not there was no light duty. [facility] Medical History Seasonal allergies Left knee injury History of gastroesophageal reflux (GERD) Surgical History H/O inguinal hernia repair H/O umbilical hernia repair Hx of colonoscopy History of esophagogastroduodenoscopy (EGD) History of appendectomy Family History Father Smoker Mother Stroke Former smoker Maternal Grandfather No problems noted. Maternal Grandmother No problems noted. Paternal Grandfather Smoker Emphysema, unspecified Paternal Grandmother No problems noted. Brother No problems noted. Daughter No problems noted. Son No problems noted. Social History Are you a primary medical care evaluation specialist to a significant other at home: No Do you presently have visiting nurse or other home services: No Alcohol intake: never Patient Tobacco Use Status: Former Tobacco user Tobacco use type: Cigarette e-Cigarette/Vaping Use: Never Used Second Hand Smoke Exposure: Yes Substance Use Type: Marijuana service: Yes ([email or web address]) Current occupational status: employed Current occupation: [employer] Current occupational exposures/hazards: No Cognitive needs: No Hearing needs: No Vision needs: No Physical Exam GI Other: Patient was examined again both supine and standing with Valsalva. Abdomen is soft, benign. Left groin negative. Right groin tenderness along the inguinal canal and upper groin muscles but no obvious hernia demonstrated. Genitalia within normal limits Assessment & Plan Assessment & Plan (1) Inguinal hernia of right side without obstruction or gangrene: Code(s): K40.90 - Unilateral inguinal hernia, without obstruction or gangrene, not specified as recurrent Category: Surgical Plan: Current plan is to obtain ultrasound of the groin to rule out an occult hernia. Patient was see me after this. No for light duty we will be provided. All questions answered. Orders: Orders US abdomen limited Today K40.90 - Unilateral inguinal hernia, without obstruction or gangrene, not specified as recurrent Coding Level of Care Code Est Pt Level 4 (11724) Diagnoses Inguinal hernia of right side without obstruction or gangrene K40.90
--- OUTSIDE RECORDS SUMMARY | 2024-09-06 08:06 | XMS_ITS | Continuity of Care Document ---
Author Name [facility] Organization [facility] Care Team Providers Care Tip Scourer Name Role Phone [facility] Unavailable Unavailable Problems Combined list of problems from Department of Defense and Veterans Affairs facilities. It does not include entries that were removed or entered in error. 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 Immunization Series Date Given Administered By Site Reaction Lot Number CVX Code Drug Milk Runner Status Comments Source INFLUENZA, INJECTABLE, QUADRIVALENT, PRESERVATIVE FREE 2019 150 complet ed [facility] [place] [facility] FLU,3 YRS (HISTORICAL) 2011 88 complet ed Site: Left Deltoid [place] DTAP, UNSPECIFIED FORMULATION 2011 107 complet ed [place] Encounters Combined list of: 1) Encounters from Department of Veterans Affairs facilities going backup to the last 18 months, not all VA inpatient encounters are included; 2) Encounters from the Department of Defense facilities going backup to 280 months. Location Location Details Encounter Type Encounter Number Reason For Visit Attending Provider ADM Date DC Date Status Disposition Source [facility] Outpatient Encounter [id number] 03/05 [place] [facility] [place] [facility] Outpatient Encounter [id number] 03/07 [place] [facility] [place] [facility] Social History Combined list of available smoking, tobacco, and other social history from Department of Defense and Veterans Affairs facilities. Social History Type Response Date Comment Sourc e Tobacco smoking status [place] VA-[facility]BACCO FOR[facility]ER [facility] History of tobacco use VA-TOBACCO QUIT 5 TO < 15 YRS 04/22/2020 [facility] History of tobacco use LIFETIME NON-TOBACCO USER 03/28/2012 [facility]
--- OUTSIDE RECORDS SUMMARY | 2024-09-06 08:06 | XMS_ITS | Data Portability ---
Author Organization [facility] [address] Address [address] [place] [address] Care Team Providers Care Scrap Burner Name Role Phone GRANTDARA MONROY Primary Care Provider Assessment No assessment recorded. Plan of Treatment Reminders Order Date Submit Date Provider Last Modified By Organization Details Last Modified Time Details Appointments None recorded. Lab culture, urine 2022 023 [place] [facility], [address] [place] [address], [place], [address], 3 08:08:39 urinalysis , dipstick 2022 023 [email or web address] _[facility], [address] [place], [address], 3 09:22:09 Referral None recorded. Procedures None recorded. Surgeries None recorded. Imaging None recorded. Medication Orders Medrol (Jake) 4 mg tablets in a dose pack 2022 023 [place] [id number], [address] [place], [address], 3 09:22:11 Patient TargetsNo targets recorded. Patient Instructions Encounter Date Encounter Id Patient Instructions Last Modified By Organization Details Last Modified Time 12/20/2022 [id number] getting back to normal after low back pain: care instructions [email or web address] Not available 12/20/2022 09:22:09 Reason for Referral None Reported. Results Created Date Observation Date Name Description Value Unit Range Abnormal Flag Note LastModifiedBy Organization Detail LastModifiedTime 07/16/12/22/2022 URINE CULTU RE, ROUTI NE urine culture, routine FINAL REPORT Not Available [facility] ([facility]) [address] [facility], [place], [address], 12/22/2022 08:08:39 12/21/19 23 12/22/2022 URINE CULTU RE, ROUTI NE result 1 NO GROWTH Not Available [facility] ([facility]) [address] [facility], [place], [address], 12/22/2022 08:08:39 12/21/19 23 12/20/2022 urina lysis , dipst ick Unknown Analyte Normal = light yellow Not Available [address] [place] [address], [place], [address], 12/20/2022 08:35:33 12/21/19 23 12/20/2022 urina lysis , dipst ick Unknown Analyte Normal = clear Not Available [address] [place] [address], [place], [address], 12/20/2022 08:35:33 12/21/19 23 12/20/2022 urina lysis , dipst ick Unknown Analyte Normal = negati ve Not Available [address] [place] [address], [place], [address], 12/20/2022 08:35:33 12/21/19 23 12/20/2022 urina lysis , dipst ick Unknown Analyte Normal = Negati ve Not Available [address] [place] [address], [place], [address], 12/20/2022 08:35:33 12/21/19 23 12/20/2022 urina lysis , dipst ick Unknown Analyte Normal = Negati ve Not Available [address] [place] [address], [place], [place], [address], 12/20/2022 08:35:33 12/21/19 23 12/20/2022 urina lysis , dipst ick Unknown Analyte Normal = 1.010, 1.015, 1.020 Not [facility] [address], [place], [address], 12/20/2022 08:35:33 12/21/19 23 12/20/2022 urina lysis , dipst ick Unknown Analyte Normal = Negati ve Not Available [address] [place] [address], [place], [address], 12/20/2022 08:35:33 12/21/19 23 12/20/2022 urina lysis , dipst ick Unknown Analyte Normal = 6.5, 7.0, 7.5, 8.0 Not Available [address] [place] [address], [place], [address], 12/20/2022 08:35:33 12/21/19 23 12/20/2022 urina lysis , dipst ick Unknown Analyte Normal = Negati ve Not Available [address] [place] [address], [place], [address], 12/20/2022 08:35:33 12/21/19 23 12/20/2022 urina lysis , dipst ick Unknown Analyte Normal = 0.2, 1.0 Not Available [address] [place] [address], [place], [address], 12/20/2022 08:35:33 12/21/19 23 12/20/2022 urina lysis , dipst ick Unknown Analyte Normal = Negati ve Not Available [address] [place] [address], [place], [address], 12/20/2022 08:35:33 12/21/19 23 12/20/2022 urina lysis , dipst ick Unknown Analyte Normal = Negati ve Not Available [facility] [address], [place], [address], 12/20/2022 08:35:33 12/21/19 23 12/20/2022 urina lysis , dipst ick Unknown Analyte Yellow Not Available [address], [place], [address], 12/20/2022 08:35:33 12/21/19 23 12/20/2022 urina lysis , dipst ick Unknown Analyte Clear Not Available [address], [place], [address], 12/20/2022 08:35:33 12/21/19 23 12/20/2022 urina lysis , dipst ick Unknown Analyte Negati ve Not Available casim[facility] [address], [place], [address], 12/20/2022 08:35:33 12/21/19 23 12/20/2022 urina lysis , dipst ick Unknown Analyte Negati ve Not Available [facility] [address], [place], [address], 12/20/2022 08:35:33 12/21/19 23 12/20/2022 urina lysis , dipst ick Unknown Analyte Negati ve Not Available [address], [place], [address], 12/20/2022 08:35:33 12/21/19 23 12/20/2022 urina lysis , dipst ick Unknown Analyte 1.020 Not Available [address], [place], [address], 12/20/2022 08:35:33 12/21/19 23 12/20/2022 urina lysis , dipst ick Unknown Analyte Negati ve Not Available [facility] burn[facility] [address], [place], [address], 12/20/2022 08:35:33 12/21/19 23 12/20/2022 urina lysis , dipst ick Unknown Analyte 7.0 Not Available [address], [place], [address], 12/20/2022 08:35:33 12/21/19 23 12/20/2022 urina lysis , dipst ick Unknown Analyte Negati ve Not Available [facility]im[facility] burnham [address], [place], [address], 12/20/2022 08:35:33 12/21/19 23 12/20/2022 urina lysis , dipst ick Unknown Analyte 1.0 E.U./d L Not Available [facility]im[facility] [address], [place], [address], 12/20/2022 08:35:33 12/21/19 23 12/20/2022 urina lysis , dipst ick Unknown Analyte Negati ve Not Available [facility] [address], [place], [address], 12/20/2022 08:35:33 12/21/19 23 12/20/2022 urina lysis , dipst ick Unknown Analyte Negati ve Not Available [facility] [address], [place], [address], 12/20/2022 08:35:33 Result Notes None recorded. Problems Name Problem SNOMED Code Status Onset Date Resolution Date Notes Provider Name and Address Organization Details Recorded Time Gastroesoph ageal reflux disease 183007455 Completed 12/20/2022 ZHEN Lopez - [facility] 08:34:26 Problem Notes None recorded. Procedures Surgical History Date Name Laterality Status Provider Name and Address Organization Details Recorded Time appendectomy completed Risa Guzman PA - [facility] 12/20/2022 08:35:21 Imaging Results None recorded. Procedure Notes None recorded. Medical Equipment None Reported. Allergies No known drug allergies Medications Name Sig Start Date Stop Date Status Note LastModified by Organization Details LastModified Time cyclobenzap rine 10 mg tablet TAKE 1 TABLET BY MOUTH 3 TIMES A DAY NEEDED FOR MUSCLE SPASM FOR 7 DAYS 12/20 completed Not Available Not Available Not Available Medrol (Jake) 4 mg tablets in a dose pack take as directed 2022 active Not Available Not Available Not Avai lable peg-electro lyte solution 420 gram oral solution DRINK 240 ML BY MOUTH EVERY 10 MINUTES UNTIL FECAL EFFLUENT IS CLEAR 12/20 completed Not Available Not Available Not Available ketoconazol e 2 % topical cream APPLY TOPICALLY 2 TIMES DAILY 12/20 completed Not Available Not Available Not Available ondansetron 4 mg disintegrat ing tablet PLEASE SEE ATTACHED FOR DETAILED DIRECTION S 12/20 completed Not Available Not Available Not Available oxycodone 5 mg tablet TAKE 1 TABLET BY MOUTH EVERY 8 HOURS NEEDED FOR PAIN FOR 4 DAYS. 12/20 completed Not Available Not Available Not Available Vitals Date Recorded Pain severity - 0-10 verbal numeric rating [Score] - Reported Body height Body mass index (BMI) Body weight Oxygen saturation Oxygen saturation in Arterial blood by Pulse oximetry Heart rate Respiratory rate Body temperature Systolic blood pressure Diastolic blood pressure Provider Name and Address Organization Details Last Updated DateTime 3 3 190.5 cm 35 kg/m2 464527. 86 g 95 % 95 % 64 /min 16 /min 97.9 [degF] 137 mm[Hg] 86 mm[Hg] Risa Guzman [employer] 3 08:38:04 Social History Question Answer Notes LastModified by Organizat ion Details LastModified Time Tobacco Smoking Status Former Smoker Risa lo PA [facility] 12/20/2022 08:34:57 What Is Your Level Of Alcohol Consumption? None Information not available 12/20/2022 Which Illicit Or Recreational Drugs Have You Used? Marijuana Information not available 12/20/2022 When Did You Quit Smoking? 11-15yearssinc elastcigarette Information not available 12/20/2022 Have You Had Direct Contact, Or Contact During Intimacy, With Monkeypox Rash, Scabs, Or Body Fluids From A Person With Monkeypox? No Information not available 12/20/2022 Do You Use Any Illicit Or Recreational Drugs? Yes Information not available 12/20/2022 Have You Recently Traveled Abroad? No Information not available 12/20/2022 Sex: Unknown Functional Status None recorded. Mental Status None recorded. Family History Relationship Description Onset Age of this Age Resolved Age Notes LastModified by Organization Details LastModified Time Father Chronic obstructive pulmonary disease nruszala Not available 2022 08:34:38 Medical History No medical history recorded. Immunizations Vaccine Type Date Status Note Provider Nam e and Address Organization Details Recorded Time Influenza, split virus, quadrivalent, preservative 8 completed Risa Ruszala null, PA - [facility] 12/20/2022 08:32:42 COVID-19 vaccine, vector-nr, rS-Ad26, PF, 0.5 mL 2 completed Risa Ruszala null, PA - [facility] 12/20/2022 08:32:42 COVID-19 vaccine, vector-nr, rS-Ad26, PF, 0.5 mL 1 completed Risa Ruszala null, PA - [facility] 12/20/2022 08:32:42 influenza, unspecified formulation 5 completed Risa Ruszala null, PA - [facility] 12/20/2022 08:32:42 Tdap 6 completed Risa Ruszala null, PA - [facility] 12/20/2022 08:32:43 Influenza, split virus, quadrivalent, PF 0 completed Risa Ruszala null, PA - [facility] 12/20/2022 08:32:43 Past Encounters Encounter ID Performer Location Encounter Start Date Encounter Closed Date Diagnosis/Indication Diagnosis SNOMED-CT Code Diagnosis ICD10 Code Diagnosis Note [id number] [address] [facility] [place] [address] 07/20/2016 10:02:13 07/20/2016 11:05:17 [id number] [address] [facility] [place] [address] 12/31/2015 11:55:58 12/31/2015 13:10:19 [id number] [address] [facility] [place] [address] 01/06/2016 12:10:15 01/06/2016 12:43:19 [id number] [address] [facility] [place] [address] 03/06/2018 12:58:04 03/06/2018 14:06:55 [id number] Scotty Daniels [address] [facility] [place] [address] 12/20/2022 08:09:31 12/20/2022 09:24:48 Low back pain 811954843 M54.50 c/w mm relaxertri al medrol dose packhold NSAIDs for nowc/w topical analgesiag entle stretching Reviewed with patient potential adverse side effects of the medication . Discussed concerning red flags with patient and reasons to follow up in the Emergency Department urgently.P atient advised to follow up as needed for worsening symptoms or no improvemen t. Dysuria 40760500 R30.0 UA normalgive n Sx will check UCxpush fluids Health Concerns Section Related Observation LastModified by Organization Detai ls LastModified Time None Recorded Concern Status LastModified by Organization Details LastModified Time None Recorded Advance Directives Directive None Recorded Payers Encounter Date Sequence Insurance Name Policy Number Policy Mcclain Covered Member ID Mcclain Member ID Guarantor Name 12/31/2015 1 [facility]) Johnnie Drea [id number] Johnnie Drea 01/06/2016 1 [facility] Johnnie Drea [id number] Johnnie Drea 07/20/2016 1 [facility]) Johnnie Drea [id number] Johnnie Drea 03/06/2018 1 [facility] Johnnie Drea [id number] Johnnie Drea 12/20/2022 1 JERMAINE: [facility] ([facility]) [id number] Johnnie Drea [id number] Johnnie Drea Notes Date Note Type Note Provider Name and Address Organization Details Recorded Time 12/20/2022 text/html Back Pain/Injury UCReported bypatient.Notes:42 yo male c/o back pain x [address] 12/07 showed inguinal hernia. no other concerns taking NSAIDs, mm relaxer, topical meds. was on oxycodone but stopped b/c no improvement No numbness/tinglingNo weaknessNo foot dropNo saddle anesthesiaNo incontinenceNo trauma c/o burning with urination x 1 dno f/c/n/vno increased frequencyno increased urgencyno incontinenceno pressureno malodorno bloodno dischargeno rash Scotty Daniels, DO [address] [place], [address], [place] - [facility] 12/20/2022 09:23:51
== END 2024-09-06 08:19 | disposition home or self-care (01) ==
LOC: HO.HGS 08:01
PROVIDERS: PCP Nurse Practitioner Family; Visit Provider Surgery
DX: K40.90 Unilateral inguinal hernia, without obstruction or gangrene, not specified as recurrent (principal)
CPT/HCPCS: 99214

== ENCOUNTER → 2024-09-06 08:00 | Outpatient (BNVA) | payer OTHER, SELFPAY | PROVIDERS: PCP Nurse Practitioner Family; Visit Provider Surgery | DX: K40.90 Unilateral inguinal hernia, without obstruction or gangrene, not specified as recurrent (principal) | CPT/HCPCS: 99212 ==

== ENCOUNTER 2024-09-22 10:49 | Outpatient (REF) | payer OTHER, SELFPAY ==
--- NOTE | ~2024-09-22 | US_ITS ---
EXAMINATION: US PELVIS LIMITED HISTORY: K40.90 - Unilateral inguinal hernia, without obstruction or gangrene COMPARISON: Correlation is made with an unenhanced CT of the abdomen and pelvis dated 01/17/2024. TECHNIQUE: Sonographic examination of the right inguinal region was performed. FINDINGS: No hernia is identified. No lymphadenopathy is seen. US/US pelvic limited IMPRESSION: No evidence of a right inguinal hernia. Electronically signed by: Holden Simeon MD 09/22/2024 12:49 PM EDT
--- OUTSIDE RECORDS SUMMARY | 2024-09-22 11:51 | XMS_ITS | Data Portability ---
Author Organization [facility] [address] Address [address] [place] [address] Care Team Providers Care Electric Organ Assembler Name Role Phone GRANTDARA MONROY Primary Care Provider [phone] Assessment No assessment recorded. Plan of Treatment Reminders Order Date Submit Date Provider Last Modified By Organization Details Last Modified Time Details Appointments None recorded. Lab culture, urine 2022 023 [place] [facility], [address] [place] [address], [place], [address], 3 08:08:39 urinalysis , dipstick 2022 023 [email or web address] _[facility], [address] [place], [address], 3 09:22:09 Referral None recorded. Procedures None recorded. Surgeries None recorded. Imaging None recorded. Medication Orders Medrol (Jake) 4 mg tablets in a dose pack 2022 023 [place] [id number], [address] [place], [address], 3 09:22:11 Patient TargetsNo targets recorded. Patient Instructions Encounter Date Encounter Id Patient Instructions Last Modified By Organization Details Last Modified Time 12/20/2022 [id number] getting back to normal after low back pain: care instructions [email or web address] Not available 12/20/2022 09:22:09 Reason for Referral None Reported. Results Created Date Observation Date Name Description Value Unit Range Abnormal Flag Note LastModifiedBy Organization Detail LastModifiedTime 07/16/12/22/2022 URINE CULTU RE, ROUTI NE urine culture, routine FINAL REPORT Not Available [facility] ([facility]) [address] [facility], [place], [address], 12/22/2022 08:08:39 12/21/19 23 12/22/2022 URINE CULTU RE, ROUTI NE result 1 NO GROWTH Not Available [facility] ([facility]) [address] [facility], [place], [address], 12/22/2022 08:08:39 12/21/19 23 12/20/2022 urina lysis , dipst ick Unknown Analyte Normal = light yellow Not Available [address] [place] [address], [place], [address], 12/20/2022 08:35:33 12/21/19 23 12/20/2022 urina lysis , dipst ick Unknown Analyte Normal = clear Not Available [address] [place] [address], [place], [address], 12/20/2022 08:35:33 12/21/19 23 12/20/2022 urina lysis , dipst ick Unknown Analyte Normal = negati ve Not Available [address] [place] [address], [place], [address], 12/20/2022 08:35:33 12/21/19 23 12/20/2022 urina lysis , dipst ick Unknown Analyte Normal = Negati ve Not Available [address] [place] [address], [place], [address], 12/20/2022 08:35:33 12/21/19 23 12/20/2022 urina lysis , dipst ick Unknown Analyte Normal = Negati ve Not Available [address] [place] [address], [place], [place], [address], 12/20/2022 08:35:33 12/21/19 23 12/20/2022 urina lysis , dipst ick Unknown Analyte Normal = 1.010, 1.015, 1.020 Not Available [facility] [address], [place], [address], 12/20/2022 08:35:33 12/21/19 23 12/20/2022 urina lysis , dipst ick Unknown Analyte Normal = Negati ve Not Available [address] [place] [address], [place], [address], 12/20/2022 08:35:33 12/21/19 23 12/20/2022 urina lysis , dipst ick Unknown Analyte Normal = 6.5, 7.0, 7.5, 8.0 Not Available [address] [place] [address], [place], [address], 12/20/2022 08:35:33 12/21/19 23 12/20/2022 urina lysis , dipst ick Unknown Analyte Normal = Negati ve Not Available [address] [place] [address], [place], [address], 12/20/2022 08:35:33 12/21/19 23 12/20/2022 urina lysis , dipst ick Unknown Analyte Normal = 0.2, 1.0 Not Available [address] [place] [address], [place], [address], 12/20/2022 08:35:33 12/21/19 23 12/20/2022 urina lysis , dipst ick Unknown Analyte Normal = Negati ve Not Available [address] [place] [address], [place], [address], 12/20/2022 08:35:33 12/21/19 23 12/20/2022 urina lysis , dipst ick Unknown Analyte Normal = Negati ve Not Available [facility]im[facility] burnham [address], [place], [address], 12/20/2022 08:35:33 12/21/19 23 12/20/2022 urina lysis , dipst ick Unknown Analyte Yellow Not Available [address], [place], [address], 12/20/2022 08:35:33 12/21/19 23 12/20/2022 urina lysis , dipst ick Unknown Analyte Clear Not Available [address], [place], [address], 12/20/2022 08:35:33 12/21/19 23 12/20/2022 urina lysis , dipst ick Unknown Analyte Negati ve Not Available casimiro [address], [place], [address], 12/20/2022 08:35:33 12/21/19 23 12/20/2022 urina lysis , dipst ick Unknown Analyte Negati ve Not Available casim[facility] [address], [place], [address], 12/20/2022 08:35:33 12/21/19 23 12/20/2022 urina lysis , dipst ick Unknown Analyte Negati ve Not Available [address], [place], [address], 12/20/2022 08:35:33 12/21/19 23 12/20/2022 urina lysis , dipst ick Unknown Analyte 1.020 Not Available [address], [place], [address], 12/20/2022 08:35:33 12/21/19 23 12/20/2022 urina lysis , dipst ick Unknown Analyte Negati ve Not Available [facility]im[facility] burnham [address], [place], [address], 12/20/2022 08:35:33 12/21/19 23 12/20/2022 urina lysis , dipst ick Unknown Analyte 7.0 Not Available [address], [place], [address], 12/20/2022 08:35:33 12/21/19 23 12/20/2022 urina lysis , dipst ick Unknown Analyte Negati ve Not Available casim[facility] burnham [address], [place], [address], 12/20/2022 08:35:33 12/21/19 23 12/20/2022 urina lysis , dipst ick Unknown Analyte 1.0 E.U./d L Not Available casim[facility] [address], [place], [address], 12/20/2022 08:35:33 12/21/19 23 12/20/2022 urina lysis , dipst ick Unknown Analyte Negati ve Not Available [facility] [address], [place], [address], 12/20/2022 08:35:33 12/21/19 23 12/20/2022 urina lysis , dipst ick Unknown Analyte Negati ve Not Available [facility] [address], [place], [address], 12/20/2022 08:35:33 Result Notes None recorded. Problems Name Problem SNOMED Code Status Onset Date Resolution Date Notes Provider Name and Address Organization Details Recorded Time Gastroesoph ageal reflux disease 643871949 Completed 12/20/2022 ZHEN Lopez - [facility] 08:34:26 Problem Notes None recorded. Procedures Surgical History Date Name Laterality Status Provider Name and Address Organization Details Recorded Time appendectomy completed Risa Guzman PA - [facility] 12/20/2022 08:35:21 Imaging Results None recorded. Procedure [...] DateTime 3 3 190.5 cm 35 kg/m2 283944. 86 g 95 % 95 % 64 /min 16 /min 97.9 [degF] 137 mm[Hg] 86 mm[Hg] Risa Guzman [employer] 3 08:38:04 Social History Question Answer Notes LastModified by Organizat ion Details LastModified Time Tobacco Smoking Status Former Smoker Risa lo PA [facility] 12/20/2022 08:34:57 What Is Your Level [...] SNOMED-CT Code Diagnosis ICD10 Code Diagnosis Note [id number] [address] [facility] [place] [address] 07/20/2016 10:02:13 07/20/2016 11:05:17 [id number] [address] [facility] [place] [address] 12/31/2015 11:55:58 12/31/2015 13:10:19 [id number] [address] [facility] [place] [address] 01/06/2016 12:10:15 01/06/2016 12:43:19 [id number] [address] [facility] [place] [address] 03/06/2018 12:58:04 03/06/2018 14:06:55 [id number] Scotty Daniels [address] [facility] [place] [address] 12/20/2022 08:09:31 12/20/2022 09:24:48 Low back pain 078950484 M54.50 c/w mm relaxertri al medrol dose packhold NSAIDs for nowc/w topical analgesiag entle stretching Reviewed with patient potential adverse side effects of the medication . Discussed concerning red flags with patient and reasons to follow up in the Emergency Department urgently.P atient advised to follow up as needed for worsening symptoms or no improvemen t. Dysuria 81698335 R30.0 UA normalgive n Sx will check UCxpush fluids Health Concerns Section Related Observation LastModified by Organization Detai ls LastModified Time None Recorded Concern Status LastModified by Organization Details LastModified Time None Recorded Advance Directives Directive None Recorded Payers Encounter Date Sequence Insurance Name Policy Number Policy Mcclain Covered Member ID Mcclain Member ID Guarantor Name 12/31/2015 1 [facility] Johnnie Drea [id number] Johnnie Drea 01/06/2016 1 [facility]) Johnnie Drea [id number] Johnnie Drea 07/20/2016 1 [facility]) Johnnie Drea [id number] Johnnie Drea 03/06/2018 1 [facility] Johnnie Drea [id number] Johnnie Drea 12/20/2022 1 JERMAINE: [facility]) [id number] Johnnie Drea [id number] Johnnie Drea Notes Date Note Type [...] Daniels, DO [address] [place], [address], [place] PA - [facility] 12/20/2022 09:23:51
--- OUTSIDE RECORDS SUMMARY | 2024-09-22 11:51 | XMS_ITS | Continuity of Care Document ---
Author Name [facility] Organization [facility] Care Team Providers Care Sketch Artist Name Role Phone [facility] Unavailable Unavailable Problems Combined list of problems from Department of Defense and Veterans Affairs facilities. It does not include entries that were removed or entered in error. Problem Status Onset Date Problem Type Date of Resolution Comments Source Adjustment disorder with disturbance of conduct Active Condition [facility] [place] [facility] Backache (ICD-9-CM 724.5) Active Condition [place] Osteoarthritis * (ICD-9-CM 715.90) Active Condition [facility] Immunizations Combined list of available immunizations from the Department of Defense and Veterans Affairs facilities. Immunization Series Date Given Administered By Site Reaction Lot Number CVX Code Drug Admissions Coordinator Status Comments Source INFLUENZA, INJECTABLE, QUADRIVALENT, PRESERVATIVE FREE 2019 150 complet ed [facility] FLU,3 YRS (HISTORICAL) 2011 88 complet ed Site: Left Deltoid [place] DTAP, UNSPECIFIED FORMULATION 2011 107 complet ed [facility] Social History Combined list of available smoking, tobacco, and other social history from Department of Defense and Veterans Affairs facilities. Social History Type Response Date Comment Sourc e Tobacco smoking status NHIS [place]-TOBACCO FORMER USER 04/22/2020 [facility] [place] [facility] of [facility] 15 Y[facility] 04/22/2020 [facility] [place] [facility] History of tobacco use LIFETIME NON-TOBACCO USER 03/28/2012 [place]
== END 2024-09-22 10:50 | disposition home or self-care (01) ==
LOC: HO.US 10:49
PROVIDERS: PCP Nurse Practitioner Family; Visit Provider Surgery
DX: K40.90 Unilateral inguinal hernia, without obstruction or gangrene, not specified as recurrent (principal)
CPT/HCPCS: 76857

== ENCOUNTER → 2024-09-22 10:50 | Outpatient (BNV) | payer OTHER, SELFPAY | PROVIDERS: PCP Nurse Practitioner Family; Visit Provider Radiology Diagnostic Radiology | DX: K40.90 Unilateral inguinal hernia, without obstruction or gangrene, not specified as recurrent (principal) | CPT/HCPCS: 76857 ==

== ENCOUNTER 2024-10-03 10:43 | Outpatient (AMB) | payer OTHER, SELFPAY ==
--- NOTE | 2024-10-03 11:03 | MHC.OFFVIS ---
Vital Signs 10/03/24 11:09 Height 6 ft 3 in Weight 217 lb BMI 27.1 BP 139/65 Blood Pressure Location Rt brachial Position Sitting Pulse 73 Intake Visit Reasons: S/P US Intake Note: Patient here to discuss US pelvic dated 09-22-2024 results. Cheese Specialist Required: No Accompanied by: Self / Same As Patient Allergies steroids Adverse Reaction (Intermediate, Verified 10/03/24 11:09) Irritable Medication List - Last Reconciled 10/03/24 by Jarred Ralph MD ibuprofen 800 mg PO Q8H PRN methocarbamol 750 mg PO Q8H naproxen (Naprosyn) 500 mg PO BID HPI HPI S/P US: Details: He is here for follow-up after an ultrasound done last September 22. This ordered by Dr. Santana to rule out an occult hernia on the right groin because of his persistent pain after a history of repair of a right inguinal hernia . He actually now says that his pain is mostly on the right hip and the right back radiating all the way to the right leg. He feels that this has a problem with his back hip and not from his previous hernia. He says he feels a clicking in his right hip all the time now. He says he walks with a limp because of this pain. [facility] Medical History Right groin pain Seasonal allergies Left knee injury History of gastroesophageal reflux (GERD) Surgical History H/O inguinal hernia repair H/O umbilical hernia repair Hx of colonoscopy History of esophagogastroduodenoscopy (EGD) History of appendectomy Family History Father Smoker Mother Stroke Former smoker Maternal Grandfather No problems noted. Maternal Grandmother No problems noted. Paternal Grandfather Smoker Emphysema, unspecified Paternal Grandmother No problems noted. Brother No problems noted. Daughter No problems noted. Son No problems noted. Social History Are you a primary career based intervention coordinator to a significant other at home: No Do you presently have visiting nurse or other home services: No Alcohol intake: never Patient Tobacco Use Status: Former Tobacco user Tobacco use type: Cigarette e-Cigarette/Vaping Use: Never Used Second Hand Smoke Exposure: Yes Substance Use Type: Marijuana service: Yes (trueEX) Current occupational status: employed Current occupation: [employer] Current occupational exposures/hazards: No Cognitive needs: No Hearing needs: No Vision needs: No Review of Systems Const Denies chills and Denies fever(s) Card Denies chest pain Resp Denies cough GI Denies abdominal pain Musc Details: Right hip pain, right back pain, right thigh pain Physical Exam Const General: comfortable and no acute distress Resp Effort & Inspection: normal respiratory effort GI Other: Unable to palpate any hernia on the right groin even with Valsalva, no masses, no point tenderness Palpation (GI): Soft to palpation and not firm Assessment & Plan Assessment & Plan (1) Right groin pain: Code(s): R10.31 - Right lower quadrant pain Category: Medical Plan: His ultrasound done on September 22 does not show any recurrent hernia on the right groin. He states that he also has some some sciatica with pain in the right hip and right back radiating to the leg. He feels that all his chronic issues with the right side is likely because of his back problems I told him that it may be best for him to see a specialist for this. He may need a referral from his primary care physician to have this coordinated He says he will be unable to return to work until he gets evaluated because of his pain He can otherwise follow up with us on a p.r.n. basis. Coding Level of Care Code Est Pt Level 3 (49509) Diagnoses Right groin pain R10.31
[2024-10-03 11:09] VITALS: BP 139/65; PULSE 73; BMI 27.1
--- OUTSIDE RECORDS SUMMARY | 2024-10-03 12:25 | XMS_ITS | Continuity of Care Document ---
Author Name [facility] Organization [facility] Care Team Providers Care V Belt Finisher Name Role Phone [facility] Unavailable Unavailable Problems Combined list of problems from Department of Defense and Veterans Affairs facilities. It does not include entries that were removed or entered in error. 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 It does not include entries that were removed or entered in error. Substance Category Reaction Severity Reaction type Status Date Reported Comments Source No Known Allergies Drug allergy (disorder) active 11/18/2007 [place], [place] Immunizations Combined list of available immunizations from the Department of Defense and Veterans Affairs facilities. Immunization Series Date Given Administered By Site Reaction Lot Number CVX Code Drug Gate Technician Status Comments Source INFLUENZA, INJECTABLE, QUADRIVALENT, PRESERVATIVE FREE 2019 150 complet ed [facility] FLU,3 YRS (HISTORICAL) 2011 88 complet ed Site: Left Deltoid [facility] DTAP, UNSPECIFIED FORMULATION 2011 107 complet ed [facility] Procedures Combined list of: 1) Procedures from Department of Veterans Affairs facilities going back up to thelast 18 months, not all VA non-surgical procedures are included; 2) All procedures from the Department of Defense facilities. Procedure Procedure Type Code Date Perfomer Comments Sour e PHARMACOLOGIC MANAGEMENT, INCLUDING PRESCRIPTION, USE, AND REVIEW OF MEDICATION WITH NO MORE THAN MINIMAL MEDICAL PSYCHOTHERAPY 03/04/2000 [facility] DESTRUCTION (EG, LASER SURGERY, ELECTROSURGERY, CRYOSURGERY, CHEMOSURGERY, SURGICAL CURETTEMENT), PREMALIGNANT LESIONS (EG, ACTINIC KERATOSES); FIRST LESION 11/29/2003 [facility] DESTRUCTION (EG, LASER SURGERY, ELECTROSURGERY, CRYOSURGERY, CHEMOSURGERY, SURGICAL CURETTEMENT), PREMALIGNANT LESIONS (EG, ACTINIC KERATOSES); FIRST LESION 11/22/2003 [facility] PURE TONE AUDIOMETRY (THRESHOLD); AIR ONLY 11/20/2003 [facility] SKIN TEST; TUBERCULOSIS, INTRADERMAL 02/23/2003 [facility] INTRAVENOUS INFUSION FOR THERAPY/DIAGNOSIS, ADMINISTERED BY PHYSICIAN OR UNDER DIRECT SUPERVISION OF PHYSICIAN; UP TO ONE HOUR 01/31/2003 [facility] WEDGE EXCISION OF SKIN OF NAIL FOLD (EG, FOR INGROWN TOENAIL) 10/02/2002 [facility] CULTURE, BACTERIAL; ANY OTHE R SOURCE EXCEPT URINE, BLOOD OR STOOL, AEROBIC, WITH ISOLATION AND PRESUMPTIVE IDENTIFICATION OF ISOLATES 08/28/2002 [facility] TYMPANOMETRY (IMPEDANCE TESTING) 10/27/2001 [facility] PURE TONE AUDIOMETRY (THRESHOLD); AIR ONLY 10/25/2001 [facility] PHYS/OTH QUALIFIED HEALTH FURNITURE MAKER QUALIFIED,EDUCATION,TRAIN,LIC ENSURE/REGULATION (WHEN APPLICABLE) EDUC SER RENDERED TO PATS IN A GRP SETTING (EG,,OBESITY,OR DIABETIC INSTRUCT) 05/06/2001 [facility] WOUND CLEANSERS, ANY TYPE, ANY SIZE 01/17/2001 [facility] PHYS/OTH QUALIFIED HEALTH FURNITURE MAKER QUALIFIED,EDUCATION,TRAIN,LIC ENSURE/REGULATION (WHEN APPLICABLE) EDUC SER RENDERED TO PATS IN A GRP SETTING (EG,,OBESITY,OR DIABETIC INSTRUCT) 11/11/2000 [facility] PURE TONE AUDIOMETRY (THRESHOLD); AIR ONLY 10/15/2000 [facility] PURE TONE AUDIOMETRY (THRESHOLD); AIR ONLY 10/14/2000 [facility] Social History Combined list of available smoking, tobacco, and other social history from Department of Defense and Veterans Affairs facilities. Social History Type Response Date Comment Sourc e Tobacco smoking status NHIS VA-TOBACCO FORMER USER 04/22/2020 [facility] [place] [facility] History of tobacco use VA-TOBACCO QUIT 5 TO < 15 YRS 04/22/2020 [facility] [place] [facility] History of tobacco use LIFETIME NON-TOBACCO USER 03/28/2012 [place] This section is an empty social history section. [facility]
--- OUTSIDE RECORDS SUMMARY | 2024-10-03 12:25 | XMS_ITS | Data Portability ---
Author Organization [facility] [address] Address [address] [place] [address] Care Team Providers Care Injection Maintenance Technician Name Role Phone GRANTDARA MONROY Primary Care Provider Assessment No assessment recorded. Plan of Treatment Reminders Order Date Submit Date Provider Last Modified By Organization Details Last Modified Time Details Appointments None recorded. Lab culture, urine 2022 023 ADELL [facility], [address] [place] [address], [place], [address], 3 08:08:39 urinalysis , dipstick 2022 023 [email or web address] [facility], [address] [place], [address], 3 09:22:09 Referral None recorded. Procedures None recorded. Surgeries None recorded. Imaging None recorded. Medication Orders Medrol (Jake) 4 mg tablets in a dose pack 2022 023 ADELL [id number], [address] [place], [address], 3 09:22:11 Patient TargetsNo targets recorded. Patient Instructions Encounter Date Encounter Id Patient Instructions Last Modified By Organization Details Last Modified Time 12/20/2022 [id number] getting back to normal after low back pain: care instructions [email or web address] Not available 12/20/2022 09:22:09 Reason for Referral None Reported. Results Created Date Observation Date Name Description Value Unit Range Abnormal Flag Note LastModifiedBy Organization Detail LastModifiedTime 07/16/12/22/2022 URINE CULTU RE, ROUTI NE urine culture, routine FINAL REPORT Not Available [facility] ([facility]) [address] [facility], [place], [address], 12/22/2022 08:08:39 12/21/19 23 12/22/2022 URINE CULTU RE, ROUTI NE result 1 NO GROWTH Not Available [facility] ([facility]) [address] [facility], [place], [address], 12/22/2022 08:08:39 12/21/19 23 12/20/2022 urina lysis , dipst ick Unknown Analyte Normal = light yellow Not Available [address] [place] [address], [place], [address], 12/20/2022 08:35:33 12/21/19 23 12/20/2022 urina lysis , dipst ick Unknown Analyte Normal = clear Not Available [address] [place] [address], [place], [address], 12/20/2022 08:35:33 12/21/19 23 12/20/2022 urina lysis , dipst ick Unknown Analyte Normal = negati ve Not Available [address] [place] [address], [place], [address], 12/20/2022 08:35:33 12/21/19 23 12/20/2022 urina lysis , dipst ick Unknown Analyte Normal = Negati ve Not Available [address] [place] [address], [place], [address], 12/20/2022 08:35:33 12/21/19 23 12/20/2022 urina lysis , dipst ick Unknown Analyte Normal = Negati ve Not Available [address] [place] [address], [place], [place], [address], 12/20/2022 08:35:33 12/21/19 23 12/20/2022 urina lysis , dipst ick Unknown Analyte Normal = 1.010, 1.015, 1.020 [facility] [address], [place], [address], 12/20/2022 08:35:33 12/21/19 23 12/20/2022 urina lysis , dipst ick Unknown Analyte Normal = Negati ve Not Available [address] [place] [address], [place], [address], 12/20/2022 08:35:33 12/21/19 23 12/20/2022 urina lysis , dipst ick Unknown Analyte Normal = 6.5, 7.0, 7.5, 8.0 Not Available [address] [place] [address], [place], [address], 12/20/2022 08:35:33 12/21/19 23 12/20/2022 urina lysis , dipst ick Unknown Analyte Normal = Negati ve Not Available [address] [place] [address], [place], [address], 12/20/2022 08:35:33 12/21/19 23 12/20/2022 urina lysis , dipst ick Unknown Analyte Normal = 0.2, 1.0 Not Available [address] [place] [address], [place], [address], 12/20/2022 08:35:33 12/21/19 23 12/20/2022 urina lysis , dipst ick Unknown Analyte Normal = Negati ve Not Available [address] [place] [address], [place], [address], 12/20/2022 08:35:33 12/21/19 23 12/20/2022 urina lysis , dipst ick Unknown Analyte Normal = Negati ve Not Available [facility] [address], [place], [address], 12/20/2022 08:35:33 12/21/19 23 12/20/2022 urina lysis , dipst ick Unknown Analyte Yellow Not Available [address], [place], [address], 12/20/2022 08:35:33 12/21/19 23 12/20/2022 urina lysis , dipst ick Unknown Analyte Clear Not Available [address], [place], [address], 12/20/2022 08:35:33 12/21/19 23 12/20/2022 urina lysis , dipst ick Unknown Analyte Negati ve Not Available casim[facility] [address], [place], [address], 12/20/2022 08:35:33 12/21/19 23 12/20/2022 urina lysis , dipst ick Unknown Analyte Negati ve Not Available [facility] [address], [place], [address], 12/20/2022 08:35:33 12/21/19 23 12/20/2022 urina lysis , dipst ick Unknown Analyte Negati ve Not Available [address], [place], [address], 12/20/2022 08:35:33 12/21/19 23 12/20/2022 urina lysis , dipst ick Unknown Analyte 1.020 Not Available [address], [place], [address], 12/20/2022 08:35:33 12/21/19 23 12/20/2022 urina lysis , dipst ick Unknown Analyte Negati ve Not Available casim[facility] burnham [address], [place], [address], 12/20/2022 08:35:33 12/21/19 23 12/20/2022 urina lysis , dipst ick Unknown Analyte 7.0 Not Available [address], [place], [address], 12/20/2022 08:35:33 12/21/19 23 12/20/2022 urina lysis , dipst ick Unknown Analyte Negati ve Not Available [facility]im[facility] burnham [address], [place], [address], 12/20/2022 08:35:33 12/21/19 23 12/20/2022 urina lysis , dipst ick Unknown Analyte 1.0 E.U./d L Not Available casim[facility] [address], [place], [address], 12/20/2022 08:35:33 12/21/19 23 12/20/2022 urina lysis , dipst ick Unknown Analyte Negati ve Not Available [facility] [address], [place], [address], 12/20/2022 08:35:33 12/21/19 23 12/20/2022 urina lysis , dipst ick Unknown Analyte Negati ve Not Available [facility] [address], [place], [address], 12/20/2022 08:35:33 Result Notes None recorded. Problems Name Problem SNOMED Code Status Onset Date Resolution Date Notes Provider Name and Address Organization Details Recorded Time Gastroesoph ageal reflux disease 128401473 Completed 12/20/2022 [facility] Lopez - [facility] 08:34:26 Problem Notes None recorded. Procedures Surgical History Date Name Laterality Status Provider Name and Address Organization Details Recorded Time appendectomy completed Risa Guzman PA - [facility] 12/20/2022 08:35:21 Imaging Results None recorded. Procedure [...] DateTime 3 3 190.5 cm 35 kg/m2 055563. 86 g 95 % 95 % 64 /min 16 /min 97.9 [degF] 137 mm[Hg] 86 mm[Hg] Risa Guzman [facility] 3 08:38:04 Social History Question Answer Notes LastModified by Organizat ion Details LastModified Time Tobacco Smoking Status Former Smoker Risa lo PA [facility] 12/20/2022 08:34:57 What Is Your Level [...] SNOMED-CT Code Diagnosis ICD10 Code Diagnosis Note [id number] [address] [facility] [place] [address] 07/20/2016 10:02:13 07/20/2016 11:05:17 [id number] [address] [facility] [place] [address] 12/31/2015 11:55:58 12/31/2015 13:10:19 [id number] [address] [facility] [place] [address] 01/06/2016 12:10:15 01/06/2016 12:43:19 [id number] [address] [facility] [place] [address] 03/06/2018 12:58:04 03/06/2018 14:06:55 [id number] Scotty Daniels [address] [facility] [place] [address] 12/20/2022 08:09:31 12/20/2022 09:24:48 Low back pain 851990634 M54.50 c/w mm relaxertri al medrol dose packhold NSAIDs for nowc/w topical analgesiag entle stretching Reviewed with patient potential adverse side effects of the medication . Discussed concerning red flags with patient and reasons to follow up in the Emergency Department urgently.P atient advised to follow up as needed for worsening symptoms or no improvemen t. Dysuria [id number] R30.0 UA normalgive n Sx will check UCxpush fluids Health Concerns Section Related Observation LastModified by Organization Detai ls LastModified Time None Recorded Concern Status LastModified by Organization Details LastModified Time None Recorded Advance Directives Directive None Recorded Payers Encounter Date Sequence Insurance Name Policy Number Policy Mcclain Covered Member ID Mcclain Member ID Guarantor Name 12/31/2015 1 [facility]) Johnnie Drea [id number] Johnnie Drea 01/06/2016 1 [facility]) Johnnie Drea [id number] Johnnie Drea 07/20/2016 1 [facility]) Johnnie Drea [id number] Johnnie Drea 03/06/2018 1 [facility] [place] [place]nie Drea [id number] Johnnie Drea 12/20/2022 1 [facility]ER[facility]: [facility] [place] [place] [id number] Johnnie Drea [id number] Johnnie Drea Notes Date Note Type [...] Daniels, DO [address] [place], [address], [place] - [facility] 12/20/2022 09:23:51
== END 2024-10-03 11:23 | disposition home or self-care (01) ==
LOC: HO.HGS 10:43
PROVIDERS: PCP Nurse Practitioner Family; Visit Provider Surgery
DX: R10.31 Right lower quadrant pain (principal)
CPT/HCPCS: 99213

== ENCOUNTER → 2024-10-03 10:43 | Outpatient (BNVA) | payer OTHER, SELFPAY | PROVIDERS: PCP Nurse Practitioner Family; Visit Provider Surgery | DX: R10.31 Right lower quadrant pain (principal) | CPT/HCPCS: 99212 ==

== ENCOUNTER → 2024-10-04 10:32 | Outpatient (BNVA) | payer OTHER, SELFPAY | PROVIDERS: PCP Nurse Practitioner Family; Visit Provider Internal Medicine | DX: R10.31 Right lower quadrant pain (principal); Z13.30 Encounter for screening examination for mental health and behavioral disorders, unspecified | CPT/HCPCS: 73502; 96127; 99212; 99214 ==

== ENCOUNTER 2024-10-04 13:23 | Outpatient (AMB) | payer OTHER, SELFPAY ==
[2024-10-04 13:48] VITALS: BP 128/80; PULSE 82; O2SAT 98; BMI 34.0
--- NOTE | 2024-10-04 13:48 | MHC.PC.OV ---
Vital Signs 10/04/24 13:48 Height 6 ft 3 in Weight 272 lb 6 oz BMI 34.0 BP 128/80 Blood Pressure Location Lt brachial Position Sitting Pulse 82 Pulse Source Pulse Oximeter Pulse Oximetry (%) 98 Oxygen Delivery Method Room Air Intake Visit Reasons: Hernia Pain Allergies steroids Adverse Reaction (Intermediate, Verified 10/04/24 13:50) Irritable Tobacco use date assessed: 10/04/24 Dental Screening Dental Screen Date: 10/04/24 Did you have a dental visit in the last 12 months?: Yes Did you have a dental problem in the last 6 months where you did not have access to dental care?: No Was dental information given to patient?: Patient has dentist HPI Hernia Pain HPI Details Chief Complaint Persistent right inguinal pain and discomfort History of Present Illness The patient is a 43-year-old male presenting with ongoing right inguinal pain. He has had persistent discomfort in the region for an extended period, despite undergoing a right inguinal hernia repair using mesh in January 2023 and umbilical hernia repair. The onset of significant right inguinal pain persisted post-surgery, especially when engaging in certain movements such as turning the upper torso while having his feet planted, significantly exacerbating the pain. There have been no observable signs of echymosis or erythema in the affected region. Recent imaging via pelvic ultrasound, conducted two weeks prior, showed no recurrence of inguinal hernia. Concurrently, patient reports localized right hip pain and lower back pain. An lumbar MRI from fall 2023 highlighted considerable disc protrusions and annular fissures, which are believed to be causing nerve root compression, potentially impacting tenderness in the pelvic region??? Social History Health Maintenance Review of Systems - Musculoskeletal: Reports right inguinal pain and right hip pain. - Neurological: Reports lower back pain. Physical Exam General: Cooperative, healthy appearing, comfortable, no acute distress and well developed Orientation: Patient oriented x3 Limitations: No limitations Head: Normal to inspection Ears: Hearing grossly normal bilaterally Nose: Normal external nose present Face and sinus: Normal facial exam Eyes: Appearance normal, both eyes and all related structures Neck: Normal visual inspection and Yes full ROM Respiratory: Normal respiratory effort and able to speak in complete sentences. Clear to auscultation bilaterally Cardiovascular: Regular rate and rhythm. Normal S1 and S2 GI: Tenderness in the right inguinal region, upper right pelvic region, and upper inguinal region with severe pain upon touch and torso movement. No signs of echomosis or erythema. Skin: No rashes or lesions noted Neuro: Patient oriented x3 Extremities: Normal to inspection, but reports of right hip pain and some lower back pain. Results - Imaging: Pelvic ultrasound two weeks prior showed no evidence of recurrent inguinal hernia. - Imaging: Previous MRI revealed significant disc protrusions and annular fissures with nerve root compression. Plan I will order an MRI to investigate the pelvic inguinal region further to address the ongoing right inguinal pain. The patient's condition post-hernia repair, combined with the MRI findings of disc protrusions and nerve root compression, warrants a referral to the spine team for evaluation. It's essential to determine any correlation between these findings and his current symptoms. The patient is informed about monitoring for signs of cauda equina syndrome, and there is no indication of echomosis or erythema in the area of concern. Discussion Notes During our discussion, I informed the patient about the significance of further examination of the pelvic inguinal region using an MRI, especially in the presence of chronic pain after hernia repair with no evidence of recurrence. I explained the benefits of understanding the impact of the disc protrusions and nerve root compression on his current symptomatology and the rationale for the referral to the spine team. We talked about the lack of audible signs such as echymosis or erythema, which typically signal other complications. I emphasized monitoring signs of cauda equina and maintaining open communication for any worsening symptoms or changes requiring immediate attention. Patient Instructions - Monitor for any new or changing symptoms, especially signs of cauda equina syndrome. - Keep follow-up appointments with the spine team as scheduled. - Report immediately if significant changes in pain or mobility occur. - Avoid movements that exacerbate the pain, such as twisting the torso with feet planted. - Adhere strictly to any specific recommendations provided by the spine team after evaluation. [facility] Medical History Right groin pain (~08/21/24) Seasonal allergies Left knee injury History of gastroesophageal reflux (GERD) Surgical History H/O inguinal hernia repair H/O umbilical hernia repair Hx of colonoscopy History of esophagogastroduodenoscopy (EGD) History of appendectomy Family History Father Smoker Mother Stroke Former smoker Maternal Grandfather No problems noted. Maternal Grandmother No problems noted. Paternal Grandfather Smoker Emphysema, unspecified Paternal Grandmother No problems noted. Brother No problems noted. Daughter No problems noted. Son No problems noted. Social History Housing: House Are you a primary primary care pediatrician to a significant other at home: No Do you presently have visiting nurse or other home services: No Alcohol intake: never Patient Tobacco Use Status: Former Tobacco user Tobacco use type: Cigarette e-Cigarette/Vaping Use: Never Used Second Hand Smoke Exposure: Yes Substance Use Type: Marijuana service: Yes ([employer]) Current occupational status: employed Current occupation: [employer] Current occupational exposures/hazards: No Cognitive needs: No Hearing needs: No Vision needs: No Questionnaire PHQ-9 Over the last 2 weeks, how often have you been bothered by any of the following problems? 1. Little interest or pleasure in doing things: nearly every day 2. Feeling down, depressed, or hopeless: not at all 3. Trouble falling or staying asleep, or sleeping too much: nearly every day 4. Feeling tired or having little energy: not at all 5. Poor appetite or overeating: not at all 6. Feeling bad about yourself - or that you are a failure or have let yourself or your family down: not at all 7. Trouble concentrating on things, such as reading the newspaper or watching television: not at all 8. Moving or speaking so slowly that other people could have noticed. Or the opposite - being so fidgety or restless that you have been moving around a lot more than usual: not at all 9. Thoughts that you would be better off or of hurting yourself in some way: not at all Total score: 6 Depression Screening Interpretation: Negative Depression Screening Done: Yes 94218 - PHQ-9 Billing: Yes Source: Developed by Drs. Holden Davis, Ani Tom, Monroe Delgado and colleagues, with an educational raj from [employer]. Thrive Questionnaire Date Thrive assessed: 10/04/24 I am a: Patient What is your living situation today?: I have a steady place to live Within the past 12 months, did the food you bought not last and you didn't have the money to get more?: Never true Within the past 12 months, did you worry whether your food would run out before you got money to buy more?: Never true Do you have trouble paying for medicines?: No Do you have trouble getting transportation to medical appointments?: No Do you have trouble paying your heating and electricity bill?: Yes Do you have trouble taking care of your child, family member or friend?: No Do you have trouble with day-to-day activities such as bathing, preparing meals, shopping, managing finances, etc.?: No Are you currently unemployed and looking for a job?: No Are you interested in more education?: Yes Please select the resources that you would like help with: None Currently or been in a relationship where the following occur: No concerns reported THRIVE Score: 1 AUDIT C Alcohol Use Questionnaire (AUDIT-C) 1. How often do you have a drink containing alcohol?: Never 3. How often do you have six or more drinks on one occasion?: Never Total Score: 0 Score Reviewed/Action Taken: Yes SERVANDO-7 AMB Questionnaire SERVANDO-7 Date SERVANDO - 7 assessed: 10/04/24 Feeling nervous, anxious, or on edge: 2 = More than half the days Not being able to stop or control worryin = More than half the days Worrying too much about different things: 2 = More than half the days Trouble relaxin = More than half the days Being so restless that it is hard to sit still: 2 = More than half the days Becoming easily annoyed or irritable: 2 = More than half the days Feeling afraid as if something awful might happen: 2 = More than half the days Total SERVANDO-7 score (0-4 normal; 5-9 mild; 10-14 moderate; 15-21 severe): 14 Source: Developed by Drs. Holden Davis, Ani Tom, Monroe Delgado and colleagues, with an educational raj from [employer]. SERVANDO-7 Assessment Billing SERVANDO-7 Assessment Tool: SERVANDO-7 Assessment 36938 Physical exam (Primary Care) Vital Signs: Last Vital Signs Pulse 82 10/04/24 13:48 BP 128/80 10/04/24 13:48 Pulse Ox 98 10/04/24 13:48 Oxygen Delivery Method Room Air 10/04/24 13:48 BMI result Body Mass Index 34.0 Tobacco/Smoking Status: Tobacco use Status Tobacco use date assessed 10/04/24 10/04/24 13:52 Patient Tobacco Use Status Former Tobacco user 10/04/24 13:52 Tobacco use type Cigarette 10/04/24 13:52 e-Cigarette/Vaping Use Never Used 10/04/24 13:52 PHQ-9: PHQ-9 Score PHQ-9: Total score 6 10/04/24 13:52 Depression Screening Interpretation: Negative Thrive Assessment: Date of Thrive Assessment Date Thrive assessed 10/04/24 10/04/24 13:52 Currently or been in a relationship where the following occur: No concerns reported Coding Level of Care Code Est Pt Level 3 (93764) Diagnoses Groin pain R10.30 Nerve root compression G54.9 Additional Codes SERVANDO-7 Assessment Billing - SERVANDO-7 Assessment Tool: SERVANDO-7 Assessment 74804 ([id number]) PHQ-9 - 92426 - PHQ-9 Billing: Yes ([id number]) Assessment & Plan Assessment & Plan (1) Groin pain: Comment: chronic Code(s): R10.30 - Lower abdominal pain, unspecified Category: Surgical (2) Nerve root compression: Code(s): G54.9 - Nerve root and plexus disorder, unspecified Category: Medical Plan . Orders: Orders MR pelvis wo/w con Today R10.30 - Lower abdominal pain, unspecified Referrals Neuro Spine Referral G54.9 - Nerve root and plexus disorder, unspecified, R10.30 - Lower abdominal pain, unspecified
--- OUTSIDE RECORDS SUMMARY | 2024-10-04 14:45 | XMS_ITS | Data Portability ---
Author Organization [facility] [address] Address [address] [place] [address] Care Team Providers Care Nursing Secretary Name Role Phone GRANTPORFIRIO DARA Primary Care Provider [phone] Assessment No assessment recorded. Plan of Treatment Reminders Order Date Submit Date Provider Last Modified By Organization Details Last Modified Time Details Appointments None recorded. Lab culture, urine 2022 023 [place] [facility], [address] [place] [address], [place], [address], 3 08:08:39 urinalysis , dipstick 2022 023 [email or web address] [facility], [address] [place], [address], 3 09:22:09 Referral None recorded. Procedures None recorded. Surgeries None recorded. Imaging None recorded. Medication Orders Medrol (Jake) 4 mg tablets in a dose pack 2022 023 [place] [id number], [address] [place], [address], 3 09:22:11 Patient TargetsNo targets recorded. Patient Instructions Encounter Date Encounter Id Patient Instructions Last Modified By Organization Details Last Modified Time 12/20/2022 [id number] getting back to normal after low back pain: care instructions [email or web address] Not available 12/20/2022 09:22:09 Reason for Referral None Reported. Results Created Date Observation Date Name Description Value Unit Range Abnormal Flag Note LastModifiedBy Organization Detail LastModifiedTime 07/16/12/22/2022 URINE CULTU RE, ROUTI NE urine culture, routine FINAL REPORT Not Available [facility] ([facility]) [address] [facility], [place], [address], 12/22/2022 08:08:39 12/21/19 23 12/22/2022 URINE CULTU RE, ROUTI NE result 1 NO GROWTH Not Available [facility] ([facility]) [address] [facility], [place], [address], 12/22/2022 08:08:39 12/21/19 23 12/20/2022 urina lysis , dipst ick Unknown Analyte Normal = light yellow Not Available [address] [place] [address], [place], [address], 12/20/2022 08:35:33 12/21/19 23 12/20/2022 urina lysis , dipst ick Unknown Analyte Normal = clear Not Available [address] [place] [address], [place], [address], 12/20/2022 08:35:33 12/21/19 23 12/20/2022 urina lysis , dipst ick Unknown Analyte Normal = negati ve Not Available [address] [place] [address], [place], [address], 12/20/2022 08:35:33 12/21/19 23 12/20/2022 urina lysis , dipst ick Unknown Analyte Normal = Negati ve Not Available [address] [place] [address], [place], [address], 12/20/2022 08:35:33 12/21/19 23 12/20/2022 urina lysis , dipst ick Unknown Analyte Normal = Negati ve Not Available [address] [place] [address], [place], [place], [address], 12/20/2022 08:35:33 12/21/19 23 12/20/2022 urina lysis , dipst ick Unknown Analyte Normal = 1.010, 1.015, 1.020 [facility] [address], [place], [address], 12/20/2022 08:35:33 12/21/19 23 12/20/2022 urina lysis , dipst ick Unknown Analyte Normal = Negati ve Not Available [address] [place] [address], [place], [address], 12/20/2022 08:35:33 12/21/19 23 12/20/2022 urina lysis , dipst ick Unknown Analyte Normal = 6.5, 7.0, 7.5, 8.0 Not Available [address] [place] [address], [place], [address], 12/20/2022 08:35:33 12/21/19 23 12/20/2022 urina lysis , dipst ick Unknown Analyte Normal = Negati ve Not Available [address] [place] [address], [place], [address], 12/20/2022 08:35:33 12/21/19 23 12/20/2022 urina lysis , dipst ick Unknown Analyte Normal = 0.2, 1.0 Not Available [address] [place] [address], [place], [address], 12/20/2022 08:35:33 12/21/19 23 12/20/2022 urina lysis , dipst ick Unknown Analyte Normal = Negati ve Not Available [address] [place] [address], [place], [address], 12/20/2022 08:35:33 12/21/19 23 12/20/2022 urina lysis , dipst ick Unknown Analyte Normal = Negati ve Not Available [facility] [address], [place], [address], 12/20/2022 08:35:33 12/21/19 23 12/20/2022 urina lysis , dipst ick Unknown Analyte Yellow Not Available [address], [place], [address], 12/20/2022 08:35:33 12/21/19 23 12/20/2022 urina lysis , dipst ick Unknown Analyte Clear Not Available [address], [place], [address], 12/20/2022 08:35:33 12/21/19 23 12/20/2022 urina lysis , dipst ick Unknown Analyte Negati ve Not Available [facility] [address], [place], [address], 12/20/2022 08:35:33 12/21/19 23 12/20/2022 urina lysis , dipst ick Unknown Analyte Negati ve Not Available [facility] [address], [place], [address], 12/20/2022 08:35:33 12/21/19 23 12/20/2022 urina lysis , dipst ick Unknown Analyte Negati ve Not Available [address], [place], [address], 12/20/2022 08:35:33 12/21/19 23 12/20/2022 urina lysis , dipst ick Unknown Analyte 1.020 Not Available [address], [place], [address], 12/20/2022 08:35:33 12/21/19 23 12/20/2022 urina lysis , dipst ick Unknown Analyte Negati ve Not Available [facility] [address], [place], [address], 12/20/2022 08:35:33 12/21/19 23 12/20/2022 urina lysis , dipst ick Unknown Analyte 7.0 Not Available [address], [place], [address], 12/20/2022 08:35:33 12/21/19 23 12/20/2022 urina lysis , dipst ick Unknown Analyte Negati ve Not Available [facility] [address], [place], [address], 12/20/2022 08:35:33 12/21/19 23 12/20/2022 urina lysis , dipst ick Unknown Analyte 1.0 E.U./d L Not Available [facility] [address], [place], [address], 12/20/2022 08:35:33 12/21/19 23 12/20/2022 urina lysis , dipst ick Unknown Analyte Negati ve Not Available [facility] [address], [place], [address], 12/20/2022 08:35:33 12/21/19 23 12/20/2022 urina lysis , dipst ick Unknown Analyte Negati ve Not Available [facility] [address], [place], [address], 12/20/2022 08:35:33 Result Notes None recorded. Problems Name Problem SNOMED Code Status Onset Date Resolution Date Notes Provider Name and Address Organization Details Recorded Time Gastroesoph ageal reflux disease 732328762 Completed 12/20/2022 ZH[facility] Lopez - [facility] 08:34:26 Problem Notes None recorded. Procedures Surgical History Date Name Laterality Status Provider Name and Address Organization Details Recorded Time appendectomy completed Risa Guzman PA - [employer] 12/20/2022 08:35:21 Imaging Results None recorded. Procedure [...] DateTime 3 3 190.5 cm 35 kg/m2 427826. 86 g 95 % 95 % 64 /min 16 /min 97.9 [degF] 137 mm[Hg] 86 mm[Hg] Risa Guzman [facility] 3 08:38:04 Social History Question Answer Notes LastModified by Organizat ion Details LastModified Time Tobacco Smoking Status Former Smoker Risa lo PA [facility] 12/20/2022 08:34:57 What Is Your Level [...] SNOMED-CT Code Diagnosis ICD10 Code Diagnosis Note [id number] [address] [place] [address] 07/20/2016 10:02:13 07/20/2016 11:05:17 [id number] [address] [place] [address] 12/31/2015 11:55:58 12/31/2015 13:10:19 [id number] [address] [place] [address] 01/06/2016 12:10:15 01/06/2016 12:43:19 [id number] [address] [place] [address] 03/06/2018 12:58:04 03/06/2018 14:06:55 [id number] Scotty Daniels, [address] [place] [address] 12/20/2022 08:09:31 12/20/2022 09:24:48 Low back pain [id number] M54.50 c/w mm relaxertri al medrol dose packhold NSAIDs for nowc/w topical analgesiag entle stretching Reviewed with patient potential adverse side effects of the medication . Discussed concerning red flags with patient and reasons to follow up in the Emergency Department urgently.P atient advised to follow up as needed for worsening symptoms or no improvemen t. Dysuria [id number] R30.0 UA normalgive n Sx will check UCxpush fluids Health Concerns Section Related Observation LastModified by Organization Detai ls LastModified Time None Recorded Concern Status LastModified by Organization Details LastModified Time None Recorded Advance Directives Directive None Recorded Payers Encounter Date Sequence Insurance Name Policy Number Policy Mcclain Covered Member ID Mcclain Member ID Guarantor Name 12/31/2015 1 [facility]) Johnnie Shepard [id number] Johnnie Shepard 01/06/2016 1 [facility] [id number] Johnnie Drea 07/20/2016 1 [facility] [facility] [id number] Johnnie Drea 03/06/2018 1 [facility] [facility] [id number] Johnnie Drea 12/20/2022 [id number] [id number] Johnnie Drea [id number] Johnnie Drea Notes Date Note Type [...] Daniels, DO [address] [place], [address], [place] - [facility] 12/20/2022 09:23:51
--- OUTSIDE RECORDS SUMMARY | 2024-10-04 14:45 | XMS_ITS | Continuity of Care Document ---
Author Name [facility] Organization [facility] Care Team Providers Care Guest Relations Executive Name Role Phone [facility] Unavailable Unavailable Problems Combined list of problems from Department of Defense and Veterans Affairs facilities. It does not include entries that were removed or entered in error. 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 It does not include entries that were removed or entered in error. Substance Category Reaction Severity Reaction type Status Date Reported Comments Source No Known Allergies Drug allergy (disorder) active 11/18/2007 [place], [place] Immunizations Combined list of available immunizations from the Department of Defense and Veterans Affairs facilities. 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 Comments Source INFLUENZA, INJECTABLE, QUADRIVALENT, PRESERVATIVE FREE 2019 150 complet ed [facility] FLU,3 YRS (HISTORICAL) 2011 88 complet ed Site: Left Deltoid [facility] DTAP, UNSPECIFIED FORMULATION 2011 107 complet ed [facility] Procedures Combined list of: 1) [...] LESIONS (EG, ACTINIC KERATOSES); FIRST LESION 11/29/2003 [facility] DESTRUCTION (EG, LASER SURGERY, ELECTROSURGERY, CRYOSURGERY, CHEMOSURGERY, SURGICAL CURETTEMENT), PREMALIGNANT LESIONS (EG, ACTINIC KERATOSES); FIRST LESION 11/22/2003 [facility] PURE TONE AUDIOMETRY (THRESHOLD); AIR ONLY 11/20/2003 [facility] SKIN TEST; TUBERCULOSIS, INTRADERMAL 02/23/2003 [facility] INTRAVENOUS INFUSION FOR THERAPY/DIAGNOSIS, ADMINISTERED BY PHYSICIAN OR UNDER DIRECT SUPERVISION OF PHYSICIAN; UP TO ONE HOUR 01/31/2003 [facility] WEDGE EXCISION OF SKIN OF NAIL FOLD (EG, FOR INGROWN TOENAIL) 10/02/2002 [facility] CULTURE, BACTERIAL; ANY OTHE R SOURCE EXCEPT URINE, BLOOD OR STOOL, AEROBIC, WITH ISOLATION AND PRESUMPTIVE IDENTIFICATION OF ISOLATES 08/28/2002 [facility] TYMPANOMETRY (IMPEDANCE TESTING) 10/27/2001 [facility] PURE TONE AUDIOMETRY (THRESHOLD); AIR ONLY 10/25/2001 [facility] PHYS/OTH QUALIFIED HEALTH MANAGEMENT ADVISOR QUALIFIED,EDUCATION,TRAIN,LIC ENSURE/REGULATION (WHEN APPLICABLE) EDUC SER RENDERED TO PATS IN A GRP SETTING (EG,,OBESITY,OR DIABETIC INSTRUCT) 05/06/2001 [facility] WOUND CLEANSERS, ANY TYPE, ANY SIZE 01/17/2001 [facility] PHYS/OTH QUALIFIED HEALTH MANAGEMENT ADVISOR QUALIFIED,EDUCATION,TRAIN,LIC ENSURE/REGULATION (WHEN APPLICABLE) EDUC SER RENDERED [...] smoking status NHIS VA-TOBACCO FORMER USER 04/22/2020 [facility] History of tobacco use VA-TOBACCO QUIT 5 TO < 15 YRS 04/22/2020 [facility] History of tobacco use LIFETIME NON-TOBACCO USER 03/28/2012 [place] This section is an empty social history section. [facility]
== END 2024-10-04 14:54 | disposition home or self-care (01) ==
LOC: HO.HMCC 13:24
PROVIDERS: PCP Nurse Practitioner Family; Visit Provider Nurse Practitioner Family
DX: R10.30 Lower abdominal pain, unspecified (principal); G54.9 Nerve root and plexus disorder, unspecified

== ENCOUNTER → 2024-10-06 07:52 | Outpatient (BNVA) | payer OTHER, SELFPAY | PROVIDERS: PCP Nurse Practitioner Family; Visit Provider Internal Medicine | DX: R10.31 Right lower quadrant pain (principal); M54.9 Dorsalgia, unspecified; R10.9 Unspecified abdominal pain | CPT/HCPCS: 99213 ==

== ENCOUNTER → 2024-10-13 10:31 | Outpatient (BNVA) | payer OTHER, SELFPAY | PROVIDERS: PCP Nurse Practitioner Family; Visit Provider Internal Medicine | DX: R10.31 Right lower quadrant pain (principal); M25.551 Pain in right hip | CPT/HCPCS: 99213 ==

== ENCOUNTER → 2024-10-16 07:10 | Outpatient (BNV) | payer BC, SELFPAY | PROVIDERS: PCP Nurse Practitioner Family; Visit Provider Radiology Diagnostic Radiology | DX: M87.851 Other osteonecrosis, right femur (principal); M25.451 Effusion, right hip; S43.431A Superior glenoid labrum lesion of right shoulder, initial encounter | CPT/HCPCS: 72195 ==

== ENCOUNTER 2024-10-16 07:18 | Outpatient (REF) | payer BC, SELFPAY ==
--- NOTE | ~2024-10-16 | MR_ITS ---
CLINICAL HISTORY: R10.31 - Right lower quadrant pain --- Additional Notes or Special Instructions: ch ronic right groin pain, lower MR pelvis without contrast Comparison: CT/[place]/SR - CT ABDOMEN PELVIS WO IV CON - 01/17/24 12:07 EDT Findings: There is bone marrow edema in right proximal femur and adjacent acetabulum. No fracture line or aggressive osseous lesion. Mild amount of cystic change in the right acetabulum. There is Modic type 2 change at L5/S1 Normal alignment without subluxation. Small right hip joint effusion. No left hip joint effusion. There is increased signal and irregularity in right labrum at the anterior aspect. Linear increased signal in the left labrum may also indicate tear. There is partial-thickness right femoral/acetabular chondromalacia. The capsule and ligaments are normal. There is pronounced edema in the right iliopsoas muscle. The tendon is increased in signal without complete tear or retraction. There is fluid tracking along the distal tendon fibers. There is increased signal and edema at right greater trochanter involving the insertion of gluteus medius and minimus without a definitive fluid collection. Mild amount of increased signal within left gluteus minimus and medius tendinous insertions. Otherwise unremarkable muscle, tendons and entheses. Small fat containing inguinal hernias. Status post right inguinal hernia repair. Normal vessels, nerves and soft tissues. No acute intrapelvic pathology. Impression: Bone marrow edema in right proximal femur and adjacent acetabulum could be posttraumatic or degenerative. Correlate clinically for signs/symptoms of infection. Small right hip joint effusion. Pronounced edema in the right iliopsoas muscle likely indicating myositis. Partial tear of the iliopsoas tendon with tendinopathy. 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 Tear of the right labrum at the anterior aspect. Suspect tear of the left labrum is well. Tendinopathy of gluteus medius/minimus with partial tears, more pronounced on the right. No trochanteric bursitis. This document has been electronically signed by: Jaky Wilson MD on 10/16/2024 22:07:11
--- OUTSIDE RECORDS SUMMARY | 2024-10-16 07:19 | XMS_ITS | Data Portability ---
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 Plan of Treatment Reminders Order Date Submit Date Provider Last Modified By Organization Details Last Modified Time Details Appointments None recorded. Lab culture, urine [address] [facility], [address] [place] [address], [place], [address], 3 08:08:39 urinalysis , dipstick 2022 023 [email or web address] [facility], [address] [place], [address], 3 09:22:09 Referral None recorded. Procedures None recorded. Surgeries None recorded. Imaging None recorded. Medication Orders Medrol (Jake) 4 mg tablets in a dose pack 2022 023 [place] [id number], [address] [place], [address], 3 09:22:11 Patient TargetsNo targets recorded. Patient Instructions Encounter Date Encounter Id Patient Instructions Last Modified By Organization Details Last Modified Time 12/20/2022 [id number] getting back to normal after low back pain: care instructions [email or web address] Not available 12/20/2022 09:22:09 Reason for Referral None Reported. Results Created Date Observation Date Name Description Value Unit Range Abnormal Flag Note LastModifiedBy Organization Detail LastModifiedTime 07/16/12/22/2022 URINE CULTU RE, ROUTI NE urine culture, routine FINAL REPORT Not Available [facility] ([facility]) [address] [facility], [place], [address], 12/22/2022 08:08:39 12/21/19 23 12/22/2022 URINE CULTU RE, ROUTI NE result 1 NO GROWTH Not Available [facility] ([facility]) [address] [facility], [place], [address], 12/22/2022 08:08:39 12/21/19 23 12/20/2022 urina lysis , dipst ick Unknown Analyte Normal = light yellow Not Available [address] [place] [address], [place], [address], 12/20/2022 08:35:33 12/21/19 23 12/20/2022 urina lysis , dipst ick Unknown Analyte Normal = clear Not Available [address] [place] [address], [place], [address], 12/20/2022 08:35:33 12/21/19 23 12/20/2022 urina lysis , dipst ick Unknown Analyte Normal = negati ve Not Available [address] [place] [address], [place], [address], 12/20/2022 08:35:33 12/21/19 23 12/20/2022 urina lysis , dipst ick Unknown Analyte Normal = Negati ve Not Available [address] [place] [address], [place], [address], 12/20/2022 08:35:33 12/21/19 23 12/20/2022 urina lysis , dipst ick Unknown Analyte Normal = Negati ve Not Available [address] [place] [address], [place], [place], [address], 12/20/2022 08:35:33 12/21/19 23 12/20/2022 urina lysis , dipst ick Unknown Analyte Normal = 1.010, 1.015, 1.020 [facility] [address], [place], [address], 12/20/2022 08:35:33 12/21/19 23 12/20/2022 urina lysis , dipst ick Unknown Analyte Normal = Negati ve Not Available [address] [place] [address], [place], [address], 12/20/2022 08:35:33 12/21/19 23 12/20/2022 urina lysis , dipst ick Unknown Analyte Normal = 6.5, 7.0, 7.5, 8.0 Not Available [address] [place] [address], [place], [address], 12/20/2022 08:35:33 12/21/19 23 12/20/2022 urina lysis , dipst ick Unknown Analyte Normal = Negati ve Not Available [address] [place] [address], [place], [address], 12/20/2022 08:35:33 12/21/19 23 12/20/2022 urina lysis , dipst ick Unknown Analyte Normal = 0.2, 1.0 Not Available [address] [place] [address], [place], [address], 12/20/2022 08:35:33 12/21/19 23 12/20/2022 urina lysis , dipst ick Unknown Analyte Normal = Negati ve Not Available [address] [place] [address], [place], [address], 12/20/2022 08:35:33 12/21/19 23 12/20/2022 urina lysis , dipst ick Unknown Analyte Normal = Negati ve Not Available [facility] [address], [place], [address], 12/20/2022 08:35:33 12/21/19 23 12/20/2022 urina lysis , dipst ick Unknown Analyte Yellow Not Available [address], [place], [address], 12/20/2022 08:35:33 12/21/19 23 12/20/2022 urina lysis , dipst ick Unknown Analyte Clear Not Available [address], [place], [address], 12/20/2022 08:35:33 12/21/19 23 12/20/2022 urina lysis , dipst ick Unknown Analyte Negati ve Not Available casim[facility] [address], [place], [address], 12/20/2022 08:35:33 12/21/19 23 12/20/2022 urina lysis , dipst ick Unknown Analyte Negati ve Not Available casim[facility] [address], [place], [address], 12/20/2022 08:35:33 12/21/19 23 12/20/2022 urina lysis , dipst ick Unknown Analyte Negati ve Not Available [address], [place], [address], 12/20/2022 08:35:33 12/21/19 23 12/20/2022 urina lysis , dipst ick Unknown Analyte 1.020 Not Available [address], [place], [address], 12/20/2022 08:35:33 12/21/19 23 12/20/2022 urina lysis , dipst ick Unknown Analyte Negati ve Not Available casimiro burnham [address], [place], [address], 12/20/2022 08:35:33 12/21/19 23 12/20/2022 urina lysis , dipst ick Unknown Analyte 7.0 Not Available [address], [place], [address], 12/20/2022 08:35:33 12/21/19 23 12/20/2022 urina lysis , dipst ick Unknown Analyte Negati ve Not Available casim[facility] burnham [address], [place], [address], 12/20/2022 08:35:33 12/21/19 23 12/20/2022 urina lysis , dipst ick Unknown Analyte 1.0 E.U./d L Not Available casim[facility] [address], [place], [address], 12/20/2022 08:35:33 12/21/19 23 12/20/2022 urina lysis , dipst ick Unknown Analyte Negati ve Not Available [facility] [address], [place], [address], 12/20/2022 08:35:33 12/21/19 23 12/20/2022 urina lysis , dipst ick Unknown Analyte Negati ve Not Available [facility] [address], [place], [address], 12/20/2022 08:35:33 Result Notes None recorded. Problems Name Problem SNOMED Code Status Onset Date Resolution Date Notes Provider Name and Address Organization Details Recorded Time Gastroesoph ageal reflux disease 795620522 Completed 12/20/2022 [facility] Lopez - [facility] 08:34:26 Problem Notes None recorded. Procedures Surgical History Date Name Laterality Status Provider Name and Address Organization Details Recorded Time appendectomy completed Risa Guzman PA - [facility] 12/20/2022 08:35:21 Imaging Results None recorded. Procedure [...] DateTime 3 3 190.5 cm 35 kg/m2 736031. 86 g 95 % 95 % 64 /min 16 /min 97.9 [degF] 137 mm[Hg] 86 mm[Hg] Risa Guzman [facility] 3 08:38:04 Social History Question Answer Notes LastModified by Organizat ion Details LastModified Time Tobacco Smoking Status Former Smoker Risa lo PA [facility] 12/20/2022 08:34:57 Which Illicit Or Recreational Drugs Have You Used? Marijuana Information not available 12/20/2022 When Did You Quit Smoking? 11-15yearssinc elastcigarette Information not available 12/20/2022 Have You Had Direct Contact, Or Contact During Intimacy, With Monkeypox Rash, Scabs, Or Body Fluids From A Person With Monkeypox? No Information not available 12/20/2022 Have You Recently Traveled Abroad? No Information not available 12/20/2022 Sex: Unknown Functional Status Question Answer Note LastModified by Organizat ion Details LastModified Time Do you use any illicit or recreational drugs? Yes Information not available 12/20/2022 What is your level of alcohol consumption? None Information not available 12/20/2022 Mental Status None recorded. Family History Relationship [...] SNOMED-CT Code Diagnosis ICD10 Code Diagnosis Note [id number] [address] [place] [address] 07/20/2016 10:02:13 07/20/2016 11:05:17 [id number] [address] [place] [address] 12/31/2015 11:55:58 12/31/2015 13:10:19 [id number] [address] [place] [address] 01/06/2016 12:10:15 01/06/2016 12:43:19 [id number] [address] [place] [address] 03/06/2018 12:58:04 03/06/2018 14:06:55 [id number] Scotty Daniels DO [address] [place] [address] 12/20/2022 08:09:31 12/20/2022 09:24:48 Low back pain 342870178 M54.50 c/w mm relaxertri al medrol dose packhold NSAIDs for nowc/w topical analgesiag entle stretching Reviewed with patient potential adverse side effects of the medication . Discussed concerning red flags with patient and reasons to follow up in the Emergency Department urgently.P atient advised to follow up as needed for worsening symptoms or no improvemen t. Dysuria [id number] R30.0 UA normalgive n Sx will check UCxpush fluids Health Concerns Section Related Observation LastModified by Organization Detai ls LastModified Time None Recorded Concern Status LastModified by Organization Details LastModified Time None Recorded Advance Directives Directive None Recorded Payers Insurance Date Sequence Insurance Name Policy Number Policy Mcclain Covered Member ID Mcclain Member ID Guarantor Name 12/20/2022 1 [facility] [facility] [id number] 12/20/2022 1 [place] [facility] [id number] [facility] [id number] [facility] Notes Date Note Type Note Provider Name [...] Daniels, DO [address] [place], [address], [place] - [facility] 12/20/2022 09:23:51
--- OUTSIDE RECORDS SUMMARY | 2024-10-16 07:19 | XMS_ITS | Continuity of Care Document ---
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 It does not include entries that were removed or entered in error. Problem Status Onset Date Problem Type Date of Resolution Comments Source Adjustment disorder with disturbance of conduct Active Condition [facility] Backache (ICD-9-CM 724.5) Active Condition [facility] Osteoarthritis * (ICD-9-CM 715.90) Active Condition [facility] Allergies, Adverse Reactions, Alerts Combined list of allergies from Department of Defense and Veterans Affairs facilities. It does not include entries that were removed or entered in error. Substance Category Reaction Severity Reaction type Status Date Reported Comments Source No Known Allergies Drug allergy (disorder) active 11/18/2007 [place], [place] Immunizations Combined list of available immunizations from the Department of Defense and Veterans Affairs facilities. 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 DTAP, UNSPECIFIED FORMULATION [address] [facility] Procedures Combined list of: 1) [...] LESIONS (EG, ACTINIC KERATOSES); FIRST LESION 11/29/2003 [facility] DESTRUCTION (EG, LASER SURGERY, ELECTROSURGERY, CRYOSURGERY, CHEMOSURGERY, SURGICAL CURETTEMENT), PREMALIGNANT LESIONS (EG, ACTINIC KERATOSES); FIRST LESION 11/22/2003 [facility] PURE TONE AUDIOMETRY (THRESHOLD); AIR ONLY 11/20/2003 [facility] SKIN TEST; TUBERCULOSIS, INTRADERMAL 02/23/2003 [facility] INTRAVENOUS INFUSION FOR THERAPY/DIAGNOSIS, ADMINISTERED BY PHYSICIAN OR UNDER DIRECT SUPERVISION OF PHYSICIAN; UP TO ONE HOUR 01/31/2003 [facility] WEDGE EXCISION OF SKIN OF NAIL FOLD (EG, FOR INGROWN TOENAIL) 10/02/2002 [facility] CULTURE, BACTERIAL; ANY OTHE R SOURCE EXCEPT URINE, BLOOD OR STOOL, AEROBIC, WITH ISOLATION AND PRESUMPTIVE IDENTIFICATION OF ISOLATES 08/28/2002 [facility] TYMPANOMETRY (IMPEDANCE TESTING) 10/27/2001 [facility] PURE TONE AUDIOMETRY (THRESHOLD); AIR ONLY 10/25/2001 [facility] PHYS/OTH QUALIFIED HEALTH VESSEL WELDER QUALIFIED,EDUCATION,TRAIN,LIC ENSURE/REGULATION (WHEN APPLICABLE) EDUC SER RENDERED TO PATS IN A GRP SETTING (EG,,OBESITY,OR DIABETIC INSTRUCT) 05/06/2001 [facility] WOUND CLEANSERS, ANY TYPE, ANY SIZE 01/17/2001 [facility] PHYS/OTH QUALIFIED HEALTH VESSEL WELDER QUALIFIED,EDUCATION,TRAIN,LIC ENSURE/REGULATION (WHEN APPLICABLE) EDUC SER RENDERED [...] smoking status NHIS VA-TOBACCO FORMER USER 04/22/2020 [facility] [facility] History of tobacco use VA-TOBACCO QUIT 5 TO < 15 YRS 04/22/2020 [facility] History of tobacco use LIFETIME NON-TOBACCO USER 03/28/2012 [facility] This section is an empty social history section. [facility]
== END 2024-10-16 07:19 | disposition home or self-care (01) ==
LOC: HO.MRI 07:18
PROVIDERS: PCP Nurse Practitioner Family; Visit Provider Nurse Practitioner Family
DX: R10.31 Right lower quadrant pain (principal)
CPT/HCPCS: 72195

== ENCOUNTER → 2024-10-20 07:55 | Outpatient (BNVA) | payer OTHER, SELFPAY | PROVIDERS: PCP Nurse Practitioner Family; Visit Provider Internal Medicine | DX: S73.101D Unspecified sprain of right hip, subsequent encounter (principal); X50.0XXD Overexertion from strenuous movement or load, subsequent encounter | CPT/HCPCS: 99213 ==

== ENCOUNTER 2024-11-02 06:05 | Outpatient (REF) | payer BC, OTHER, SELFPAY ==
[2024-11-02 10:24] LABS: MANUAL DIFF FLAG NO
[2024-11-02 10:42] LABS: Basophils Absolute Auto 0.1 X10*3/uL (0.0-0.2); Basophils Percent Auto 0.7 % (0-2); Eosinophils Absolute Auto 0.4 X10*3/uL (0.0-0.4); Eosinophils Percent Auto 4.1 % (0-4); Hematocrit 46.8 % (42.0-52.0); Hemoglobin 15.6 g/dl (14.0-18.0); Imm Gran Abs Auto 0.05 X10*3/uL (0.00-0.03); Imm Gran Pct Auto 0.5 % (0.0-0.4); Lymphocytes Absolute Auto 2.1 X10*3/uL (1.2-4.9); Lymphocytes Percent Auto 21.6 % (20-40); Mean Corpuscular HGB Conc 33.3 g/dl (31.0-36.0); Mean Corpuscular Hemoglobin 31.3 pg (27.0-33.0); Mean Platelet Volume 10.9 fL (9.4-12.4); Monocytes Absolute Auto 0.7 X10*3/uL (0.1-1.2); Monocytes Percent Auto 6.8 % (2-11); Neutrophils Absolute Auto 6.6 x10*3/uL (2.0-8.3); Neutrophils Percent Auto 66.3 % (45-73); Platelet Count 301 X10*3/uL (160-400); Red Blood Count 4.98 X10*6/uL (4.60-5.80); Red Cell Distribution Width 12.5 % (11.0-16.0); White Blood Count 9.9 X10*3/uL (4.8-10.8)
[2024-11-02 10:57] LABS: Appearance Urine Clear; Color Urine Yellow; Glucose Urine UA Negative (Negative); Leukocyte Esterase Urine Trace (Negative); Nitrite Urine Negative (Negative); UMIC TRIGGER UACC YES; Urine Blood Negative (Negative); Urine Ketones Negative (Negative); Urine Protein Negative (Neg-Trace)
[2024-11-02 11:04] LABS: Bacteria Urine None Seen (None Seen); Hyaline Casts Urine 0-2 /LPF (0-2); RBC Urine 0-2 /HPF (0-2); Squamous Epithelial Cell Urine 0-2 /HPF (0-2); WBC Urine 0-5 /HPF (0-5)
[2024-11-02 11:21] LABS: Alanine Aminotransferase 22 U/L (0-40); Albumin Level 4.6 g/dL (3.5-5.0); Alkaline Phosphatase 82 U/L (39-117); Anion Gap 11 (12-20); Aspartate Amino Transferase 23 U/L (5-37); Blood Urea Nitrogen 12 mg/dL (9-16); Calcium 9.7 mg/dL (8.4-10.2); Carbon Dioxide 27 mmol/L (22-29); Chloride 106 mmol/L (96-108); Cholesterol 310 mg/dL (<200); Estimated Glomerular Filt Rate > 60; Glucose Fasting 94 mg/dL (60-99); HDL Cholesterol 41 mg/dL (>40); LDL Cholesterol Calculated 236 mg/dL (<100); Potassium 4.3 mmol/L (3.3-5.1); Sodium 140 mmol/L (135-145); TSH reflex Free T4 5.94 uIU/mL (0.32-4.0); Total Protein 7.7 g/dL (6.5-8.0); Triglycerides 165 mg/dL (<150)
[2024-11-02 12:05] LABS: Free T4 (Free Thyroxine) 1.03 ng/dL (0.71-1.85)
== END 2024-11-02 06:06 | disposition home or self-care (01) ==
LOC: HO.HMGCLDS 06:05
PROVIDERS: PCP Nurse Practitioner Family; Visit Provider Nurse Practitioner Family
DX: Z00.00 Encounter for general adult medical examination without abnormal findings (principal)
CPT/HCPCS: 36415; 80053; 80061; 81001; 84439; 84443; 85025

== ENCOUNTER → 2024-11-03 08:00 | Outpatient (BNVA) | payer OTHER, SELFPAY | PROVIDERS: PCP Nurse Practitioner Family; Visit Provider Internal Medicine | DX: M54.9 Dorsalgia, unspecified (principal); S73.101D Unspecified sprain of right hip, subsequent encounter; X58.XXXD Exposure to other specified factors, subsequent encounter | CPT/HCPCS: 99213 ==

== ENCOUNTER 2024-11-08 14:41 | Outpatient (AMB) | payer BC, SELFPAY ==
[2024-11-08 14:43] VITALS: BP 122/80; PULSE 88; O2SAT 98; BMI 34.4
--- NOTE | 2024-11-08 14:43 | MHC.PC.OV ---
Vital Signs 11/08/24 14:43 Height 6 ft 3 in Weight 275 lb BMI 34.4 BP 122/80 Blood Pressure Location Rt brachial Position Sitting Pulse 88 Pulse Source Pulse Oximeter Pulse Oximetry (%) 98 Oxygen Delivery Method Room Air Intake Visit Reasons: PE Allergies steroids Adverse Reaction (Intermediate, Verified 11/08/24 15:04) Irritable Medication List - Last Reconciled 11/08/24 by KANDY Rodgers- atorvastatin 10 mg PO BEDTIME ibuprofen 800 mg PO Q8H PRN Tobacco use date assessed: 10/04/24 Dental Screening Dental Screen Date: 10/04/24 HPI PE HPI Details History of Present Illness PE: The patient is a 43-year-old male presenting with right groin pain and buttocks pain. These symptoms have been evaluated through MRI, and he is under follow-up with Orthopedics, correlating with a workman's compensation case. His lifestyle has become notably sedentary, likely due to persistent discomfort. Concurrently, he has elevated cholesterol levels, requiring initiation of a low-dose statin with plans for reevaluation in two months. Reports indicate slightly abnormal thyroid function, which will be reassessed. The patient denies any presence of critical symptoms such as chest or abdominal pain, respiratory issues, or changes in gastrointestinal activity. Health Maintenance - Initiated low-dose statin therapy for hypercholesterolemia - Recommended dietary changes to address elevated cholesterol - Scheduled for repeat testing of cholesterol panel in two months - Scheduled for repeat thyroid function testing in two months Social History - Sedentary lifestyle attributed to pain issues - Patient acknowledges poor dietary choices impacting cholesterol levels -current case pending Review of Systems - Cardiovascular: Denies chest pain, shortness of breath - Gastrointestinal: Denies abdominal pain, denies changes in bowel habits, denies urinary issues - denies any fevers, chills, n/v, increase fatigue, si or hi Physical Exam General: Cooperative, healthy appearing, comfortable, no acute distress and well developed Orientation: Patient oriented x3 Limitations: No limitations Head: Normal to inspection Ears: Hearing grossly normal bilaterally Nose: Normal external nose present Face and sinus: Normal facial exam Eyes: Appearance normal, both eyes and all related structures Neck: Normal visual inspection and Yes full ROM Respiratory: Normal respiratory effort and able to speak in complete sentences. Clear to auscultation bilaterally Cardiovascular: Regular rate and rhythm. Normal S1 and S2 GI: Normal to inspection. Soft to palpation and nontender Skin: No rashes or lesions noted Neuro: Patient oriented x3 Extremities: Normal to inspection Results - Labs: Elevated cholesterol panel - Labs: Slightly off thyroid function test - Imaging: MRI findings indicated pain in right groin and buttocks Plan The patient's elevated cholesterol is being managed with a low-dose statin and dietary changes, with plans for reassessment in two months. Thyroid function will also be retested at that time. His pain in the right groin and buttocks is currently being managed in conjunction with Orthopedics, correlating with his workman's comp case. Discussion Notes I discussed with the patient the initiation of statin therapy for elevated cholesterol, including its benefits for cardiovascular health, balanced against potential side effects such as muscle pain or liver enzyme alterations. The need for dietary changes was also emphasized to support medication efficacy. We reviewed the plan for monitoring cholesterol and thyroid function with repeat labs in two months. The implications of his ongoing pain issues were detailed, with encouragement to continue current orthopedic follow-ups while addressing the workman's compensation proceedings. It was advised that the patient incorporate gradual increases in physical activity as feasible. All recommendations were reviewed and agreed upon by the patient. Patient Instructions - Start taking prescribed low-dose statin as directed for high cholesterol - Follow dietary recommendations to reduce cholesterol intake - Return for blood work in two months to reassess cholesterol and thyroid levels - Follow up with Orthopedics regarding right groin and buttocks pain [facility] Medical History Right groin pain (~08/21/24) Seasonal allergies Left knee injury History of gastroesophageal reflux (GERD) Surgical History H/O inguinal hernia repair H/O umbilical hernia repair Hx of colonoscopy History of esophagogastroduodenoscopy (EGD) History of appendectomy Family History Father Smoker Mother Stroke Former smoker Maternal Grandfather No problems noted. Maternal Grandmother No problems noted. Paternal Grandfather Smoker Emphysema, unspecified Paternal Grandmother No problems noted. Brother No problems noted. Daughter No problems noted. Son No problems noted. Social History Housing: House Are you a primary child care education coordinator to a significant other at home: No Do you presently have visiting nurse or other home services: No Alcohol intake: never Patient Tobacco Use Status: Former Tobacco user Tobacco use type: Cigarette e-Cigarette/Vaping Use: Never Used Second Hand Smoke Exposure: Yes Substance Use Type: Marijuana service: Yes ([employer]) Current occupational status: employed Current occupation: [employer] Current occupational exposures/hazards: No Cognitive needs: No Hearing needs: No Vision needs: No Questionnaire Thrive Questionnaire Date Thrive assessed: 10/04/24 I am a: Patient What is your living situation today?: I have a steady place to live Within the past 12 months, did the food you bought not last and you didn't have the money to get more?: Never true Within the past 12 months, did you worry whether your food would run out before you got money to buy more?: Never true Do you have trouble paying for medicines?: No Do you have trouble getting transportation to medical appointments?: No Do you have trouble paying your heating and electricity bill?: Yes Do you have trouble taking care of your child, family member or friend?: No Do you have trouble with day-to-day activities such as bathing, preparing meals, shopping, managing finances, etc.?: No Are you currently unemployed and looking for a job?: No Are you interested in more education?: Yes Please select the resources that you would like help with: None Currently or been in a relationship where the following occur: No concerns reported THRIVE Score: 1 AUDIT C Alcohol Use Questionnaire (AUDIT-C) 3. How often do you have six or more drinks on one occasion?: Never Total Score: 0 SERVANDO-7 AMB Questionnaire SERVANDO-7 Date SERVANDO - 7 assessed: 10/04/24 Source: Developed by Drs. Holden Davis, Ani Tom, Monroe Delgado and colleagues, with an educational raj from [employer]. Physical exam (Primary Care) Vital Signs: Last Vital Signs Pulse 88 11/08/24 14:43 BP 122/80 11/08/24 14:43 Pulse Ox 98 11/08/24 14:43 Oxygen Delivery Method Room Air 11/08/24 14:43 BMI result Body Mass Index 34.4 Tobacco/Smoking Status: Tobacco use Status Tobacco use date assessed 10/04/24 11/08/24 14:46 Patient Tobacco Use Status Former Tobacco user 11/08/24 14:46 Tobacco use type Cigarette 11/08/24 14:46 e-Cigarette/Vaping Use Never Used 11/08/24 14:46 Thrive Assessment: Date of Thrive Assessment Date Thrive assessed 10/04/24 11/08/24 14:46 Currently or been in a relationship where the following occur: No concerns reported Coding Level of Care Code Est Pt Prev Care 40-64y(64724) Diagnoses Encounter for routine adult physical exam with abnormal findings Z00.01 Assessment & Plan Assessment & Plan (1) Encounter for routine adult physical exam with abnormal findings: Code(s): Z00.01 - Encounter for general adult medical examination with abnormal findings Category: Medical Plan . Medications: New cyclobenzaprine 10 mg PO BEDTIME 30 days PRN 30 tabs 0RF muscle spasm
== END 2024-11-08 15:37 | disposition home or self-care (01) ==
LOC: HO.HMCC 14:42
PROVIDERS: PCP Nurse Practitioner Family; Visit Provider Nurse Practitioner Family
DX: Z00.01 Encounter for general adult medical examination with abnormal findings (principal)

== ENCOUNTER → 2024-11-08 14:41 | Outpatient (BNVA) | payer BC, OTHER, SELFPAY | PROVIDERS: PCP Nurse Practitioner Family; Visit Provider Nurse Practitioner Family | DX: Z13.89 Encounter for screening for other disorder (principal) ==

== ENCOUNTER 2024-11-09 08:38 | Outpatient (AMB) | payer BC, SELFPAY ==
--- NOTE | 2024-11-09 08:45 | MHC.OFFVIS ---
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 Intake Note: Johnnie is a 43 year old male who presents today with complaints of right groin pain. 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 Hx of inguinal hernia repair, and was worked up by the work connection for hernia concerns however patient expressed to his PCP that he does not feel that that is the source of his pain. Patient reports that he is having clicking in the hip and a limp while walking due to his pain. Patient states that he was improving how ever he feels that he plateaued. He was recently seen with his PCP who prescribe Ibuprofen and muscle relaxer. He has not started taking the muscle relaxer but he does take ibuprofen with mild relief currently he has been having increasing pain with lateral rotation of the right leg which causes a sharp pain. He has not done any Physical Therapy at this time. 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 Hx of inguinal hernia repair, and was worked up by the work connection for hernia concerns however patient expressed to his PCP that he does not feel that that is the source of his pain. Patient reports that he is having clicking in the hip and a limp while walking due to his pain. Patient states that he was improving how ever he feels that he plateaued. He was recently seen with his PCP who prescribe Ibuprofen and muscle relaxer. He has not started taking the muscle relaxer but he does take ibuprofen with mild relief currently he has been having increasing pain with lateral rotation of the right leg which causes a sharp pain. He has not done any Physical Therapy at this time. [facility] Medical History Right groin pain (~08/21/24) Seasonal allergies Left knee injury History of gastroesophageal reflux (GERD) Surgical History H/O inguinal hernia repair H/O umbilical hernia repair Hx of colonoscopy History of esophagogastroduodenoscopy (EGD) History of appendectomy Family History Father Smoker Mother Stroke Former smoker Maternal Grandfather No problems noted. Maternal Grandmother No problems noted. Paternal Grandfather Smoker Emphysema, unspecified Paternal Grandmother No problems noted. Brother No problems noted. Daughter No problems noted. Son No problems noted. Social History Housing: House Are you a primary healthcare specialist to a significant other at home: No Do you presently have visiting nurse or other home services: No Alcohol intake: never Patient Tobacco Use Status: Former Tobacco user Tobacco use type: Cigarette e-Cigarette/Vaping Use: Never Used Second Hand Smoke Exposure: Yes Substance Use Type: Marijuana service: Yes ([employer]) Current occupational status: employed Current occupation: [employer] Current occupational exposures/hazards: No Cognitive needs: No Hearing needs: No Vision needs: No Physical Exam Vital Signs: BMI result Body Mass Index 34.4 Extrem Other: Markedly positive impingement test with positive Trendelenburg gait. Positive Stinchfield. Results Reviewed Results Reviewed: I personally reviewed the MR images. Impression: Bone marrow edema in right proximal femur and adjacent acetabulum could be posttraumatic or degenerative. Correlate clinically for signs/symptoms of infection. Small right hip joint effusion. Pronounced edema in the right iliopsoas muscle likely indicating myositis. Partial tear of the iliopsoas tendon with tendinopathy. 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 Tear of the right labrum at the anterior aspect. Suspect tear of the left labrum is well. Tendinopathy of gluteus medius/minimus with partial tears, more pronounced on the right. No trochanteric bursitis. Assessment & Plan Assessment & Plan (1) Labral tear of hip, degenerative: Code(s): M24.159 - Other articular cartilage disorders, unspecified hip Category: Medical Plan: (2) Arthritis of right hip: Code(s): M16.11 - Unilateral primary osteoarthritis, right hip Category: Medical Plan: MRI and clinical exam and history all strongly suggest degenerative osteoarthritis of the right hip. He is uncomfortable and has been so for quite some time. I recommendation is PT for hip stabilization and right hip intra-articular injection. Orders: Referrals Pain Management Referral M16.11 - Unilateral primary osteoarthritis, right hip, M24.159 - Other articular cartilage disorders, unspecified hip Coding Level of Care Code New Pt Level 4 (38262) Diagnoses Labral tear of hip, degenerative M24.159 Arthritis of right hip M16.11
[2024-11-09 08:46] VITALS: BMI 34.4
== END 2024-11-09 09:33 | disposition home or self-care (01) ==
LOC: HO.HOS 08:39
PROVIDERS: PCP Nurse Practitioner Family; Visit Provider Orthopaedic Surgery
DX: M24.151 Other articular cartilage disorders, right hip (principal); M16.11 Unilateral primary osteoarthritis, right hip
CPT/HCPCS: 99203

== ENCOUNTER → 2024-11-09 08:38 | Outpatient (BNVA) | payer BC, SELFPAY | PROVIDERS: PCP Nurse Practitioner Family; Visit Provider Orthopaedic Surgery ==

== ENCOUNTER 2024-12-15 10:51 | Outpatient (AMB) | payer BC, SELFPAY ==
--- NOTE | 2024-12-15 10:53 | MHC.OFFVIS ---
Vital Signs 12/15/24 10:55 Height 6 ft 3 in Weight 275 lb BMI 34.4 BP 138/80 Blood Pressure Location Lt brachial Position Sitting Respiration 16 Pulse 93 Pulse Source Pulse Oximeter Pulse Oximetry (%) 94 Oxygen Delivery Method Room Air Intake Visit Reasons: Right Hip Inj. 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 Since then, he has experienced severe pain in the gluteal region. The patient has significant disc degeneration at L5-S1, with modic changes and endplate involvement at S1 and L5. He is not currently experiencing significant axial lower back pain. The patient has been counseled to minimize heavy lifting, use good posture, and strengthen his core. Swimming exercises have been recommended to help manage symptoms related to disc degeneration. 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 - Quality: Severe pain in the gluteal region. - Location: Front of the hip and gluteal region. - Exacerbating factors: Heavy lifting and certain movements. - Relieving factors: Swimming exercises and minimizing heavy lifting. Physical Exam - Appears afebrile. - Alert and oriented. - Mood and affect appropriate. - Follows and participates in conversation appropriately. - Respiratory effort is unlabored. - Able to transition from sit to stand unassisted. - Ambulates with bilaterally normal heel strike and toe off. - Able to stand and walk on toes and heels. Results - MRI: Disc degeneration at L5-S1 with modic changes and endplate involvement at S1 and L5. - Right iliopsoas muscle edema and tendor tear. Pain Management - Affect: Pain impacts daily activities and work. - Analgesia: Currently using ibuprofen and turmeric for pain relief. - Activities of Daily Living: Pain affects ability to perform heavy lifting and certain movements. [facility] Medical History Right groin pain (~08/21/24) Seasonal allergies Left knee injury History of gastroesophageal reflux (GERD) Surgical History H/O inguinal hernia repair H/O umbilical hernia repair Hx of colonoscopy History of esophagogastroduodenoscopy (EGD) History of appendectomy Family History Father Smoker Mother Stroke Former smoker Maternal Grandfather No problems noted. Maternal Grandmother No problems noted. Paternal Grandfather Smoker Emphysema, unspecified Paternal Grandmother No problems noted. Brother No problems noted. Daughter No problems noted. Son No problems noted. Social History Housing: House Are you a primary home care giver to a significant other at home: No Do you presently have visiting nurse or other home services: No Alcohol intake: never Patient Tobacco Use Status: Former Tobacco user Tobacco use type: Cigarette e-Cigarette/Vaping Use: Never Used Second Hand Smoke Exposure: Yes Substance Use Type: Marijuana service: Yes ([employer] Current occupational status: employed Current occupation: [employer] Current occupational exposures/hazards: No Cognitive needs: No Hearing needs: No Vision needs: No Physical Exam Vital Signs: Last Vital Signs Pulse 93 12/15/24 10:55 Resp 16 12/15/24 10:55 BP 138/80 12/15/24 10:55 Pulse Ox 94 12/15/24 10:55 Oxygen Delivery Method Room Air 12/15/24 10:55 BMI result Body Mass Index 34.4 Assessment & Plan Assessment & Plan (1) Labral tear of hip, degenerative: Code(s): M24.159 - Other articular cartilage disorders, unspecified hip Category: Medical (2) Right-sided low back pain without sciatica: Comment: No red flag signs concerning for cauda equina or vertebral injury; imaging deferred at this time. Code(s): M54.50 - Low back pain, unspecified Category: Surgical Qualifiers: Chronicity: acute Qualified Code(s): M54.50 - Low back pain, unspecified (3) Arthritis of right hip: Code(s): M16.11 - Unilateral primary osteoarthritis, right hip Category: Medical Plan Plan - Plan for a fluoroscopy-guided lateral approach for hip injection to avoid anterior approach due to significant anterior pain and tear of the right iliopsoas tendon. Injection rescheduled. 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 - Recommend swimming exercises to manage symptoms related to disc degeneration. Patient was informed and verbally consented to the use of an ambient scribe for clinic note documentation during this visit. Discussion Notes I discussed with the patient the plan for a fluoroscopy-guided lateral approach for the hip injection to avoid the anterior approach due to significant anterior pain. We also talked about rescheduling the injection to a thoracic right knee injection. I advised the patient to minimize heavy lifting, use good posture, and strengthen core muscles, and recommended swimming exercises to help manage symptoms related to disc degeneration. Patient Instructions - Avoid heavy lifting and use good posture. - Engage in swimming exercises to help manage symptoms. - Continue taking ibuprofen and turmeric for pain relief. - Await scheduling for the fluoroscopy-guided hip injection. Coding Level of Care Code New Pt Level 4 (20158) Diagnoses Labral tear of hip, degenerative M24.159 Acute right-sided low back pain without sciatica M54.50 Chronicity: acute Arthritis of right hip M16.11
[2024-12-15 10:55] VITALS: BP 138/80; PULSE 93; RESP 16; O2SAT 94; BMI 34.4
--- OUTSIDE RECORDS SUMMARY | 2024-12-15 11:28 | XMS_ITS | Continuity of Care Document ---
Author Name [facility] Organization [facility] Care Team Providers Care Rock Mason Name Role Phone [facility] Unavailable Unavailable Problems Combined list of problems from Department of Defense and Veterans Affairs facilities. It does not include entries that were removed or entered in error. 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 Social History Type Response Date Comment Sourc e Tobacco smoking status NHIS [place]-TOBACCO FORMER USER 04/22/2020 [facility] [place] [facility] History of tobacco use OK-TOBACCO QUIT 5 TO < 15 YRS 04/22/2020 [facility] [place] [facility] History of tobacco use LIFETIME NON-TOBACCO USER 03/28/2012 [place] This section is an empty social history section. DoD
--- OUTSIDE RECORDS SUMMARY | 2024-12-15 11:29 | XMS_ITS | Data Portability ---
Author Organization [facility] Address [address] [place] [address] Care Team Providers Care Shopper Name Role Phone DARA ARENAS Primary Care Provider [phone] Assessment No assessment recorded. Plan of Treatment Reminders Order Date Submit Date Provider Last Modified By Organization Details Last Modified Time Details Appointments None recorded. Lab culture, urine 2022 023 [place] [facility], [address] [place] [address], [address], 3 08:08:39 urinalysis , dipstick 2022 [email or web address] [facility], [address] [place], [address], 3 09:22:09 Referral None recorded. Procedures None recorded. Surgeries None recorded. Imaging None recorded. Medication Orders Medrol (Jake) 4 mg tablets in a dose pack 2022 023 [place] [id number], [address] [place], [address], 3 09:22:11 Patient TargetsNo targets recorded. Patient Instructions Encounter Date Encounter Id Patient Instructions Last Modified By Organization Details Last Modified Time 12/20/2022 [id number] getting back to normal after low back pain: care instructions [email or web address] Not available 12/20/2022 09:22:09 Reason for Referral None Reported. Results Created Date Observation Date Name Description Value Unit Range Abnormal Flag Note LastModifiedBy Organization Detail LastModifiedTime 12/21/19 23 12/22/2022 URINE CULTU RE, ROUTI NE urine culture, routine FINAL REPORT Not Available [facility] ([facility]) [address] [facility], [place], [address], 12/22/2022 08:08:39 12/21/19 23 12/22/2022 URINE CULTU RE, ROUTI NE result 1 NO GROWTH Not Available [facility] ([facility]) [address] [facility], [place], [address], 12/22/2022 08:08:39 12/21/19 23 12/20/2022 urina lysis , dipst ick Unknown Analyte Normal = light yellow Not Available [address] [place] [address], [place], [place], [address], 12/20/2022 08:35:33 12/21/19 23 12/20/2022 urina lysis , dipst ick Unknown Analyte Normal = clear Not Available [address] [place] [address], [place], [address], 12/20/2022 08:35:33 12/21/19 23 12/20/2022 urina lysis , dipst ick Unknown Analyte Normal = negati ve Not Available [address] [place] [address], [place], [address], 12/20/2022 08:35:33 12/21/19 23 12/20/2022 urina lysis , dipst ick Unknown Analyte Normal = Negati ve Not Available [address] [place] [address], [place], [address], 12/20/2022 08:35:33 12/21/19 23 12/20/2022 urina lysis , dipst ick Unknown Analyte Normal = Negati ve Not Available [address] [place] [address], [place], [address], 12/20/2022 08:35:33 12/21/19 23 12/20/2022 urina lysis , dipst ick Unknown Analyte Normal = 1.010, 1.015, 1.020 Not [facility] [address], [place], [address], 12/20/2022 08:35:33 12/21/19 23 12/20/2022 urina lysis , dipst ick Unknown Analyte Normal = Negati ve Not Available [address] [place] [address], [place], [address], 12/20/2022 08:35:33 12/21/19 23 12/20/2022 urina lysis , dipst ick Unknown Analyte Normal = 6.5, 7.0, 7.5, 8.0 Not Available [address] [place] [address], [place], [address], 12/20/2022 08:35:33 12/21/19 23 12/20/2022 urina lysis , dipst ick Unknown Analyte Normal = Negati ve Not Available [address] [place] [address], [place], [address], 12/20/2022 08:35:33 12/21/19 23 12/20/2022 urina lysis , dipst ick Unknown Analyte Normal = 0.2, 1.0 Not Available [address] [place] [address], [place], [address], 12/20/2022 08:35:33 12/21/19 23 12/20/2022 urina lysis , dipst ick Unknown Analyte Normal = Negati ve Not Available [address] [place] [address], [place], [address], 12/20/2022 08:35:33 12/21/19 23 12/20/2022 urina lysis , dipst ick Unknown Analyte Normal = Negati ve Not Available casimiro burnham [address], [place], [address], 12/20/2022 08:35:33 12/21/19 23 12/20/2022 urina lysis , dipst ick Unknown Analyte Yellow Not Available [facility] [address], [place], [address], 12/20/2022 08:35:33 12/21/19 23 12/20/2022 urina lysis , dipst ick Unknown Analyte Clear Not Available ankit [address], [place], [address], 12/20/2022 08:35:33 12/21/19 23 12/20/2022 urina lysis , dipst ick Unknown Analyte Negati ve Not Available casimiro burnham [address], [place], [address], 12/20/2022 08:35:33 12/21/19 23 12/20/2022 urina lysis , dipst ick Unknown Analyte Negati ve Not Available casimiro [address], [place], [address], 12/20/2022 08:35:33 12/21/19 23 12/20/2022 urina lysis , dipst ick Unknown Analyte Negati ve Not Available [facility] [address], [place], [address], 12/20/2022 08:35:33 12/21/19 23 12/20/2022 urina lysis , dipst ick Unknown Analyte 1.020 Not Available [facility] [address], [place], [address], 12/20/2022 08:35:33 07/16/12/20/2022 urina lysis , dipst ick Unknown Analyte Negati ve Not Available casimiro burnham [address], [place], [address], 12/20/2022 08:35:33 12/21/19 23 12/20/2022 urina lysis , dipst ick Unknown Analyte 7.0 Not Available [address] [place] [address], [place], [address], 12/20/2022 08:35:33 12/21/19 23 12/20/2022 urina lysis , dipst ick Unknown Analyte Negati ve Not Available [address] burn[facility] [address], [place], [address], 12/20/2022 08:35:33 12/21/19 23 12/20/2022 urina lysis , dipst ick Unknown Analyte 1.0 E.U./d L Not Available [facility] [address], [place], [address], 12/20/2022 08:35:33 12/21/19 23 12/20/2022 urina lysis , dipst ick Unknown Analyte Negati ve Not Available [facility] [address], [place], [address], 12/20/2022 08:35:33 12/21/19 23 12/20/2022 urina lysis , dipst ick Unknown Analyte Negati ve Not Available [address] [place] [address], [place], [address], 12/20/2022 08:35:33 Result Notes None recorded. Problems Name Problem SNOMED Code Status Onset Date Resolution Date Notes Provider Name and Address Organization Details Recorded Time Gastroesoph ageal reflux disease 372365240 Completed 12/20/2022 [facility] - [facility] 07/16/202 3 08:34:26 Problem Notes None recorded. Procedures Surgical History Date Name Laterality Status Provider Name and Address Organization Details Recorded Time appendectomy completed Risa Santos [facility] 12/20/2022 08:35:21 Imaging Results None recorded. Procedure [...] Not Available Not Available Vitals Date Recorded Body height Body mass index (BMI) Body weight Oxygen saturation Oxygen saturation in Arterial blood by Pulse oximetry Heart rate Respiratory rate Body temperature Systolic And Diastolic Provider Name and Address Organization Details Last Updated DateTime 3 190.5 cm 35 kg/m2 452371. 86 g 95 % 95 % 64 /min 16 /min 97.9 [degF] 137/86 mm[Hg] Risa Mishraum [facility] 3 08:38:04 Social History Question Answer Notes LastModified by Organizat ion Details LastModified Time Tobacco Smoking Status Former Smoker [facility] Lopez [facility] 12/20/2022 08:34:57 Which Illicit Or Recreational [...] SNOMED-CT Code Diagnosis ICD10 Code Diagnosis Note [id number] [address] [address] [address] [place] [address] 07/20/2016 10:02:13 07/20/2016 11:05:17 [id number] [address] [address] [place] [address] 12/31/2015 11:55:58 12/31/2015 13:10:19 [id number] [address] [place] [address] 01/06/2016 12:10:15 01/06/2016 12:43:19 [id number] [facility] [address] [place] [address] 03/06/2018 12:58:04 03/06/2018 14:06:55 [id number] Scotty Daniels, [facility] [place] [address] 12/20/2022 08:09:31 12/20/2022 09:24:48 Low back pain [id number] M54.50 c/w mm relaxertri al medrol dose packhold NSAIDs for nowc/w topical analgesiag entle stretching Reviewed with patient potential adverse side effects of the medication . Discussed concerning red flags with patient and reasons to follow up in the Emergency Department urgently.P atient advised to follow up as needed for worsening symptoms or no improvemen t. Dysuria [id number] R30.0 UA normalgive n Sx will check UCxpush fluids Health Concerns Section Related Observation LastModified by Organization Detai ls LastModified Time None Recorded Concern Status LastModified by Organization Details LastModified Time None Recorded Advance Directives Directive None Recorded Payers Insurance Date Sequence Insurance Name Policy Number Policy Mcclain Covered Member ID Mcclain Member ID Guarantor Name 12/20/2022 1 [facility] [place] [facility] [id number] Johnnie Shearerp 12/20/2022 1 [facility] [id number] [facility] [id number] [facility] Notes Date Note Type Note Provider Name [...] Daniels, DO [address] [place], [address], [place] - [facility] 12/20/2022 09:23:51
== END 2024-12-15 11:11 | disposition home or self-care (01) ==
LOC: HO.PMC 10:52
PROVIDERS: PCP Nurse Practitioner Family; Referring Provider Orthopaedic Surgery; Visit Provider Internal Medicine
DX: M24.159 Other articular cartilage disorders, unspecified hip (principal); M54.50 Low back pain, unspecified; M16.11 Unilateral primary osteoarthritis, right hip
CPT/HCPCS: 99204

== ENCOUNTER 2024-12-21 06:21 | Outpatient (REF) | payer BC, SELFPAY ==
--- NOTE | ~2024-12-21 | FL_ITS ---
EXAMINATION: FL GUIDANCE ONLY HISTORY: M16.11 - Unilateral primary osteoarthritis, right hip COMPARISON: Correlation is made with plain films of the right hip dated 10/04/2024. TECHNIQUE: Fluoroscopy time: Less than 1 minute. Cumulative Dose: 0.510 mGy. DAP: 0.56293 mGym2 Images: 1. FINDINGS: A fluoroscopic spot film of the right hip demonstrate a needle in place and contrast material in the joint space. FL/FL guidance in treatment room IMPRESSION: Fluoroscopy during procedure. Please see procedure report for additional information. Electronically signed by: Holden Simeon MD 12/21/2024 02:47 PM EDT
--- OUTSIDE RECORDS SUMMARY | 2024-12-21 06:24 | XMS_ITS | Data Portability ---
Author Organization [facility] Address [address] [place] [address] Care Team Providers Care Podiatry Professor Name Role Phone DARA ARENAS Primary Care Provider Assessment No assessment recorded. Plan of Treatment Reminders Order Date Submit Date Provider Last Modified By Organization Details Last Modified Time Details Appointments None recorded. Lab culture, urine [address] [facility], [address] [place] [address], [address], 3 08:08:39 urinalysis , dipstick 2022 023 [email or web address] [facility], [address] [place], [address], 3 09:22:09 Referral None recorded. Procedures None recorded. Surgeries None recorded. Imaging None recorded. Medication Orders Medrol (Jake) 4 mg tablets in a dose pack 2022 023 [id number], [address] [place], [address], 3 09:22:11 Patient TargetsNo targets recorded. Patient Instructions Encounter Date Encounter Id Patient Instructions Last Modified By Organization Details Last Modified Time 12/20/2022 [id number] getting back to normal after low back pain: care instructions [email or web address] Not available 12/20/2022 09:22:09 Reason for Referral None Reported. Results Created Date Observation Date Name Description Value Unit Range Abnormal Flag Note LastModifiedBy Organization Detail LastModifiedTime 12/21/19 23 12/22/2022 URINE CULTU RE, ROUTI NE urine culture, routine FINAL REPORT Not Available [facility] ([facility]) [address] [facility], [place], [address], 12/22/2022 08:08:39 12/21/19 23 12/22/2022 URINE CULTU RE, ROUTI NE result 1 NO GROWTH Not Available [facility] ([facility]) [address] [facility], [place], [address], 12/22/2022 08:08:39 12/21/19 23 12/20/2022 urina lysis , dipst ick Unknown Analyte Normal = light yellow Not Available [address] [place] [address], [place], [place], [address], 12/20/2022 08:35:33 12/21/19 23 12/20/2022 urina lysis , dipst ick Unknown Analyte Normal = clear Not Available [address] [place] [address], [place], [address], 12/20/2022 08:35:33 12/21/19 23 12/20/2022 urina lysis , dipst ick Unknown Analyte Normal = negati ve Not Available [address] [place] [address], [place], [address], 12/20/2022 08:35:33 12/21/19 23 12/20/2022 urina lysis , dipst ick Unknown Analyte Normal = Negati ve Not Available [address] [place] [address], [place], [address], 12/20/2022 08:35:33 12/21/19 23 12/20/2022 urina lysis , dipst ick Unknown Analyte Normal = Negati ve Not Available [address] [place] [address], [place], [address], 12/20/2022 08:35:33 12/21/19 23 12/20/2022 urina lysis , dipst ick Unknown Analyte Normal = 1.010, 1.015, 1.020 Not [facility] [address], [place], [address], 12/20/2022 08:35:33 12/21/19 23 12/20/2022 urina lysis , dipst ick Unknown Analyte Normal = Negati ve Not Available [address] [place] [address], [place], [address], 12/20/2022 08:35:33 12/21/19 23 12/20/2022 urina lysis , dipst ick Unknown Analyte Normal = 6.5, 7.0, 7.5, 8.0 Not Available [address] [place] [address], [place], [address], 12/20/2022 08:35:33 12/21/19 23 12/20/2022 urina lysis , dipst ick Unknown Analyte Normal = Negati ve Not Available [address] [place] [address], [place], [address], 12/20/2022 08:35:33 12/21/19 23 12/20/2022 urina lysis , dipst ick Unknown Analyte Normal = 0.2, 1.0 Not Available [address] [place] [address], [place], [address], 12/20/2022 08:35:33 12/21/19 23 12/20/2022 urina lysis , dipst ick Unknown Analyte Normal = Negati ve Not Available [address] [place] [address], [place], [address], 12/20/2022 08:35:33 12/21/19 23 12/20/2022 urina lysis , dipst ick Unknown Analyte Normal = Negati ve Not Available [facility] [address], [place], [address], 12/20/2022 08:35:33 12/21/19 23 12/20/2022 urina lysis , dipst ick Unknown Analyte Yellow Not Available [facility] [address], [place], [address], 12/20/2022 08:35:33 12/21/19 23 12/20/2022 urina lysis , dipst ick Unknown Analyte Clear Not Available [facility] [address], [place], [address], 12/20/2022 08:35:33 12/21/19 23 12/20/2022 urina lysis , dipst ick Unknown Analyte Negati ve Not Available [facility] [address], [place], [address], 12/20/2022 08:35:33 12/21/19 23 12/20/2022 urina lysis , dipst ick Unknown Analyte Negati ve Not Available [facility] [address], [place], [address], 12/20/2022 08:35:33 12/21/19 23 12/20/2022 urina lysis , dipst ick Unknown Analyte Negati ve Not Available [facility] [address], [place], [address], 12/20/2022 08:35:33 12/21/19 23 12/20/2022 urina lysis , dipst ick Unknown Analyte 1.020 Not Available [facility] [address], [place], [address], 12/20/2022 08:35:33 07/16/12/20/2022 urina lysis , dipst ick Unknown Analyte Negati ve Not Available [facility] [address], [place], [address], 12/20/2022 08:35:33 12/21/19 23 12/20/2022 urina lysis , dipst ick Unknown Analyte 7.0 Not Available [address] [place] [address], [place], [address], 12/20/2022 08:35:33 12/21/19 23 12/20/2022 urina lysis , dipst ick Unknown Analyte Negati ve Not Available [address] [address], [place], [address], 12/20/2022 08:35:33 12/21/19 23 12/20/2022 urina lysis , dipst ick Unknown Analyte 1.0 E.U./d L Not Available [facility] [address], [place], [address], 12/20/2022 08:35:33 12/21/19 23 12/20/2022 urina lysis , dipst ick Unknown Analyte Negati ve Not Available [facility] [address], [place], [address], 12/20/2022 08:35:33 12/21/19 23 12/20/2022 urina lysis , dipst ick Unknown Analyte Negati ve Not Available [address] [place] [address], [place], [address], 12/20/2022 08:35:33 Result Notes None recorded. Problems Name Problem SNOMED Code Status Onset Date Resolution Date Notes Provider Name and Address Organization Details Recorded Time Gastroesoph ageal reflux disease 218586904 Completed 12/20/2022 ZHEN Lopez - [facility] [...] Updated DateTime 3 190.5 cm 35 kg/m2 279329. 86 g 95 % 95 % 64 [...] SNOMED-CT Code Diagnosis ICD10 Code Diagnosis Note [id number] [address] [address] [place] [address] 07/20/2016 10:02:13 07/20/2016 11:05:17 [id number] [address] [address] [place] [address] 12/31/2015 11:55:58 12/31/2015 13:10:19 [id number] [address] [address] [address] [place] [address] 01/06/2016 12:10:15 01/06/2016 12:43:19 [id number] [facility] [address] [address] [place] [address] 03/06/2018 12:58:04 03/06/2018 14:06:55 [id number] Scotty Daniels, [facility] [place] [address] 12/20/2022 08:09:31 12/20/2022 09:24:48 Low back pain 079781767 M54.50 c/w mm relaxertri al medrol dose packhold NSAIDs for nowc/w topical analgesiag entle stretching Reviewed with patient potential adverse side effects of the medication . Discussed concerning red flags with patient and reasons to follow up in the Emergency Department urgently.P atient advised to follow up as needed for worsening symptoms or no improvemen t. Dysuria [id number] R30.0 UA normalgive n Sx will check UCxpush fluids Health Concerns Section Related Observation LastModified by Organization Detai ls LastModified Time None Recorded Concern Status LastModified by Organization Details LastModified Time None Recorded Advance Directives Directive None Recorded Payers Insurance Date Sequence Insurance Name Policy Number Policy Mcclain Covered Member ID Mcclain Member ID Guarantor Name 12/20/2022 1 [facility] [id number] Johnnie Shearerp 12/20/2022 1 [facility] [id number] Johnnie [facility] [id number] [facility] Notes Date Note Type Note Provider Name [...] Daniels, DO [address] [place], [address], [place] - [facility] 12/20/2022 09:23:51
== END 2024-12-21 06:22 | disposition home or self-care (01) ==
LOC: CF 06:21
PROVIDERS: Visit Provider Internal Medicine
DX: M16.11 Unilateral primary osteoarthritis, right hip (principal)
CPT/HCPCS: 20610; J2003; J2795; J3301; Q9967

== ENCOUNTER 2024-12-21 12:51 | Outpatient (AMB) | payer BC, SELFPAY ==
[2024-12-21 12:52] VITALS: BP 129/91; PULSE 76; RESP 16; O2SAT 95; BMI 34.4
--- NOTE | 2024-12-21 12:52 | MHC.OFFVIS ---
Vital Signs 12/21/24 12:52 12/21/24 13:27 Height 6 ft 3 in 6 ft 3 in Weight 275 lb 275 lb BMI 34.4 34.4 BP 129/91 H 136/90 H Blood Pressure Location Lt radial Lt radial Position Sitting Sitting Respiration 16 16 Pulse 76 78 Pulse Source Pulse Oximeter Pulse Oximeter Pulse Oximetry (%) 95 94 Oxygen Delivery Method Room Air Room Air Intake Visit Reasons: Right hip inj w/ fluoro Allergies steroids Adverse Reaction (Intermediate, Verified 12/15/24 10:56) Irritable PFSH Medical History Right groin pain (~08/21/24) Seasonal allergies Left knee injury History of gastroesophageal reflux (GERD) Surgical History H/O inguinal hernia repair H/O umbilical hernia repair Hx of colonoscopy History of esophagogastroduodenoscopy (EGD) History of appendectomy Family History Father Smoker Mother Stroke Former smoker Maternal Grandfather No problems noted. Maternal Grandmother No problems noted. Paternal Grandfather Smoker Emphysema, unspecified Paternal Grandmother No problems noted. Brother No problems noted. Daughter No problems noted. Son No problems noted. Social History Housing: House Are you a primary health care coach to a significant other at home: No Do you presently have visiting nurse or other home services: No Alcohol intake: never Patient Tobacco Use Status: Former Tobacco user Tobacco use type: Cigarette e-Cigarette/Vaping Use: Never Used Second Hand Smoke Exposure: Yes Substance Use Type: Marijuana service: Yes (Advaxis) Current occupational status: employed Current occupation: [employer] Current occupational exposures/hazards: No Cognitive needs: No Hearing needs: No Vision needs: No Physical Exam Vital Signs: Last Vital Signs Pulse 78 12/21/24 13:27 Resp 16 12/21/24 13:27 BP 136/90 H 12/21/24 13:27 Pulse Ox 94 12/21/24 13:27 Oxygen Delivery Method Room Air 12/21/24 13:27 BMI result Body Mass Index 34.4 Office Procedures AMB Joint Injection/Aspiration Joint Injection/Aspiration Primary Site: other (Right hip) Prep: site was prepped using sterile technique and injection warnings given Injected: 40 mg of, Kenalog, with 4 mL of (Ropivacaine 0.25%) and in the joint Approach Used: other (Lateral approach with arthrogram) Procedure: The patient tolerated the procedure well Coding - Large joint Procedure code (CPT) selection complete Assessment & Plan Assessment & Plan (1) Arthritis of right hip: Code(s): M16.11 - Unilateral primary osteoarthritis, right hip Category: Medical Plan Patient is status post right hip intra-articular injection with arthrogram. Patient tolerated procedure well and was discharged home in stable condition with discharge instructions. All questions were answered. We will follow-up via telephone or in clinic to assess response to therapy. A follow-up appointment was made during today's visit. Orders: Orders FL guidance in treatment room Today M16.11 - Unilateral primary osteoarthritis, right hip AMB Joint Injection/Aspiration Today M16.11 - Unilateral primary osteoarthritis, right hip Coding Level of Care Code Procedure Only Diagnoses Arthritis of right hip M16.11 CPT Codes Coding - Large joint: 89289 - Large joint ([id number])
[2024-12-21 13:27] VITALS: BP 136/90; PULSE 78; RESP 16; O2SAT 94; BMI 34.4
== END 2024-12-21 13:34 | disposition home or self-care (01) ==
LOC: HO.PMCPRC 12:51
PROVIDERS: PCP Nurse Practitioner Family; Visit Provider Internal Medicine
DX: M16.11 Unilateral primary osteoarthritis, right hip (principal)
CPT/HCPCS: 20610; 77002

== ENCOUNTER 2025-01-19 07:00 | Outpatient (RCR) | payer BC, SELFPAY ==
--- NOTE | 2024-12-20 09:56 | MHC.PT.EP ---
[facility] [place] Office [place] Office [place] Office [address] Erick Booth [address] [phone] F: [phone] F: [phone] F: [phone] F: [phone] Physical Therapy Plan of Care Date of Evaluation: 12/20/24 Date of Surgery: Diagnosis: This is a 44 yo male presenting to skilled PT with a script for OA of R hip. Assessment: This is a 44 yo male presenting to skilled PT with a script for OA of R hip. 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 He reports that he had a similar incident a few years ago. Patient states that he was improving however he feels that he plateaued. Since the incident he has seen work connection who assessed him for concerns of a hernia (had a repair in the past, had an US which did not show any issue). He also saw his PCP who prescribed Ibuprofen and muscle relaxer with mild relief. He was sent to [facility] ortho who recommended PT and an injection by pain management (fluoroscopy-guided lateral approach for hip injection) which is scheduled for tomorrow 12/21 (follow up scheduled 01/17). Of note, reports a lot of back related injuries in the past. He is here today reporting main pain is located groin and lateral glut. Pain is described as sharp. Pain increases with transfers out of car and into standing, stepping laterally, lifting hip, sleeping and walking. Pain comes and goes and he has good days and bad now. He has been doing pool exercises, using ibuprofen, heating pad and ice for pain relief so far. Assessment reveals pain that ranges from up to a 8/10 at the worst. Patient demos decreased R hip and lumbar ROM, strength of R LE, TTP at glut, lateral hip and ASIS and impaired posture and gait. Based on functional limitations, impaired QOL and pain tolerance patient is a good candidate for skilled PT 2x/wk for 4wks. We will start an HEP next week after his injection. Frequency and Duration: The patient will be seen 2x/wk for 4wks Short Term Goals: (in 2 weeks) Patient will improve hip AROM by at least 10 degs without assist or pain Patient will demo good understanding and performance of quad set in multiple different planes without cues from PT and tolerate 10 SLR's with good form Patient will be I in HEP Engineer Chief Goals: (in 4 weeks) Patient will report 75% improvement in balance and strength of LLE as evidenced by reports no of falls or buckling in LE Patient will improve LEFs by 10 points Patient will demo WFL AROM of R hip Patient will demo proper squat and lift techniques without increase in pain Treatment Plan: Modalities to reduce pain, spasms and effusion. Manual therapy to restore motion and function. Therapeutic exercise to improve strength and flexibility. Neuromuscular re-education for posture and balance. Therapeutic activities to return to functional activities of daily living. Electronically signed by: Henna Bustos PT Please sign and return to therapist. Thank you for your referral.
--- NOTE | 2025-02-15 13:07 | MHC.PT.DC ---
[facility] [place] Office [place] Office [place] Office [address] Erick Booth [address] [phone] F: [phone] F: [phone] F: [phone] F: [phone] Physical Therapy Discharge Report Diagnosis: This is a 44 yo male presenting to skilled PT with a script for OA of R hip. Date of Surgery: Date of Evaluation: 12/20/24 Date of Discharge: 02/15/25 Treatments to Date: 8 Cancellations to Date: 0 No Shows to Date: 0 Discharge Status: Recommend MD Follow-up Discharge Summary: 01/19: Patient has come to sessions of PT. He has grossly unchanged his ROM, strength and pain levels if not these appear a bit worse in some categories. R hip flexion to 105, hamstring 40, hip abduction 20, adduction 18, ER 22, IR 20, extension 3-. Hip strength R flexion 4+, IR 4-, ER 4, abduction 3-, adduction 3-, extension 3-. At this time he is not progressing or meeting his PT goals so I am recommending he follow up with MD for further POC and pain management. Educated on HEP that is nonpainful in the mean time. DC due to lack in progress being made. Electronically signed by: Henna Bustos PT Please sign and return to therapist. Thank you for your referral.
== END 2025-02-15 13:08 | disposition home or self-care (01) ==
LOC: HO.PTCHIC 07:00
PROVIDERS: PCP Nurse Practitioner Family; Visit Provider Orthopaedic Surgery
DX: M16.11 Unilateral primary osteoarthritis, right hip (principal)
CPT/HCPCS: 97110; 97140; 97161